=== PATIENT | male | born 1940 | race Caucasian/White ===

== ENCOUNTER 2020-02-05 18:07 | Emergency (ER) | payer OTHER ==
[~2020-02-05] VITALS: Ht 167.6 cm; Wt 96.6 kg
[~2020-02-05 18:07] MED LIST: ASPI81CH PO; ATOR20 PO; CEPH500 PO; CLIN300 PO; CLOP75 PO; ENOX100I SC; ENOX80I SC; INSDET100 SC; INSUASPI SC; LISI20 PO; LOVA20 PO; METF500C PO; PERM5TC TOP; Percocet 5-3251 EACH PO; WARF1 PO
== END 2020-02-05 20:43 | disposition home or self-care (01) ==
LOC: ER 18:07
DX: S82.832A Other fracture of upper and lower end of left fibula, initial encounter for closed fracture (principal); E11.9 Type 2 diabetes mellitus without complications; Z79.899 Other long term (current) drug therapy; Z79.4 Long term (current) use of insulin; Z79.02 Long term (current) use of antithrombotics/antiplatelets; Z79.82 Long term (current) use of aspirin; Z79.01 Long term (current) use of anticoagulants; Z95.1 Presence of aortocoronary bypass graft; X50.1XXA Overexertion from prolonged static or awkward postures, initial encounter
CPT/HCPCS: 29515; 73610; 99283-25

== ENCOUNTER 2020-05-26 01:51 | Inpatient (IN) | payer OTHER ==
[~2020-05-26] VITALS: Ht 167.6 cm; Wt 90.4 kg
[~2020-05-26 01:51] MED LIST changes: +LEVEMIR100 UNIT/1 SC; +NOVOLOG FL100 UNIT/3 SC
[2020-05-26 02:11] LABS: PCO2 Arterial 37.2 mmHg (35-45); PO2 Arterial 68.3 mmHg (80-100)
[2020-05-26 02:19] LABS: BASOPHILS ABSOLUTE AUTO 0.09 K/mm3 (0.00-0.23); BASOPHILS PERCENT AUTO 1 % (0-2); EOSINOPHILS ABSOLUTE AUTO 0.25 K/mm3 (0.00-0.68); EOSINOPHILS PERCENT AUTO 1 % (0-6); Hematocrit 38.5 % (37.0-53.0); Hemoglobin 12.5 g/dL (13.5-17.5); IMMATURE GRAN ABSOLUTE AUTO 0.09 K/mm3 (0.00-0.10); IMMATURE GRAN PERCENT AUTO 1 % (0-1); LYMPHOCYTES ABSOLUTE AUTO 4.53 K/mm3 (0.84-5.20); LYMPHOCYTES PERCENT AUTO 25 % (21-46); MONOCYTES ABSOLUTE AUTO 0.99 K/mm3 (0.16-1.47); MONOCYTES PERCENT AUTO 6 % (4-13); Mean Corpuscular HGB 29.9 pg (26.0-34.0); Mean Corpuscular HGB Conc 32.5 g/dL (31.5-36.5); Mean Corpuscular Volume 92 fL (80-100); Mean Platelet Volume 10.6 fL (9.1-12.4); NEUTROPHILS PERCENT AUTO 67 % (41-73); Platelet Count 422 K/mm3 (150-400); RDW Coefficient Variation 14.2 % (11.7-14.2); RDW Standard Deviation 47.8 fL (35.1-46.3); Red Blood Cell Count 4.18 M/mm3 (4.30-5.90); White Blood Cell Count 18.05 K/mm3 (4.00-11.30)
[2020-05-26 03:11] LABS: Influenza A, PCR Negative (NEGATIVE); Influenza B, PCR Negative (NEGATIVE); Resp Syncytial Virus, PCR Negative (NEGATIVE); SARS-Cov-2 (COVID-19) PCR, MMC Negative (NEGATIVE)
[2020-05-26 03:39] LABS: Albumin, Blood 3.3 g/dL (3.4-5.0); Albumin/Globulin Ratio 0.8 (0.8-1.8); Bilirubin, Total 0.8 mg/dL (0.1-1.0); Bun/Creatinine Ratio 13.4 (12.0-20.0); Calcium, Blood 8.5 mg/dL (8.5-10.1); Creatinine, Blood 2.02 mg/dL (0.60-1.20); Globulin, Blood 4.2 g/dL (2.2-4.0); Potassium, Blood 4.7 mmol/L (3.5-5.5); Total Protein, Blood 7.5 g/dL (6.4-8.2); Troponin I 0.283 ng/mL (0.000-0.040)
[2020-05-26 05:12] LABS: International Normalized Ratio 3.32; Prothrombin Time Results 33.2 Sec (9.7-11.5)
--- NOTE | 2020-05-26 07:23 | NUR ---
ASSUMED CARE: PT RESTING IN BED ON 2L AT THIS TIME. AT BEDSIDE DURING REPORT. AFIB AT 103 ON TELE, DENIES CHEST PAIN. RT CAME OUT OF ROOM STATING SHE PUT PT BACK ON BIPAP DUE TO FEELING SOB. NO ACUTE NEEDS OR CONCERNS AT THIS TIME.
--- NOTE | 2020-05-26 07:26 | NUR ---
PHARMACIST CALLED AND STATED PT'S INR WAS SUPRATHERAPEUTIC SO HEPARIN WILL NOT BE STARTED AT THIS TIME. PHARMACIST STATED THEY WILL CONTACT HOSPITALIST TO MAKE THEM AWARE.
[2020-05-26 09:19] LABS: BASOPHILS ABSOLUTE AUTO 0.02 K/mm3 (0.00-0.23); BASOPHILS PERCENT AUTO 0 % (0-2); EOSINOPHILS PERCENT AUTO 0 % (0-6); Hematocrit 37.2 % (37.0-53.0); Hemoglobin 12.8 g/dL (13.5-17.5); IMMATURE GRAN ABSOLUTE AUTO 0.05 K/mm3 (0.00-0.10); IMMATURE GRAN PERCENT AUTO 1 % (0-1); LYMPHOCYTES ABSOLUTE AUTO 0.67 K/mm3 (0.84-5.20); LYMPHOCYTES PERCENT AUTO 7 % (21-46); MONOCYTES ABSOLUTE AUTO 0.11 K/mm3 (0.16-1.47); MONOCYTES PERCENT AUTO 1 % (4-13); Mean Corpuscular HGB 32.3 pg (26.0-34.0); Mean Corpuscular HGB Conc 34.4 g/dL (31.5-36.5); Mean Corpuscular Volume 94 fL (80-100); Mean Platelet Volume 10.6 fL (9.1-12.4); NEUTROPHILS ABSOLUTE AUTO 9.03 K/mm3 (1.96-9.15); NEUTROPHILS PERCENT AUTO 91 % (41-73); Platelet Count 318 K/mm3 (150-400); RDW Coefficient Variation 14.3 % (11.7-14.2); RDW Standard Deviation 47.8 fL (35.1-46.3); Red Blood Cell Count 3.96 M/mm3 (4.30-5.90); White Blood Cell Count 9.88 K/mm3 (4.00-11.30)
[2020-05-26 09:52] LABS: Albumin, Blood 3.4 g/dL (3.4-5.0); Albumin/Globulin Ratio 0.7 (0.8-1.8); Bilirubin, Total 0.7 mg/dL (0.1-1.0); Bun/Creatinine Ratio 13.7 (12.0-20.0); Calcium, Blood 9.1 mg/dL (8.5-10.1); Creatinine, Blood 2.05 mg/dL (0.60-1.20); Globulin, Blood 4.8 g/dL (2.2-4.0); Potassium, Blood 4.6 mmol/L (3.5-5.5); Total Protein, Blood 8.2 g/dL (6.4-8.2)
--- NOTE | 2020-05-26 09:56 | NUR ---
DR MELARA CAME TO SEE PT AND IS AWARE OF RECENT TROPONIN. WILL BE REORDERING NEW LAB FOR THIS AFTERNOON. DR ORDERED EKG AND ECHO IS CURRENTLY AT BEDSIDE. OK WITH DELAYING EKG UNTIL ECHO IS COMPLETE. NO FURTHER NEEDS AT THIS TIME.
--- NOTE | 2020-05-26 11:18 | NUR ---
Echocardiogram using 0.50ml of Definity contrast performed.
[2020-05-26 15:21] LABS: CPK Creatine Kinase 261 U/L (39-308)
--- NOTE | 2020-05-26 19:15 | NUR ---
ASSUMED CARE RECEIVED REPORT, PT SITTING UP IN BED SPEAKING ON PHONE. O2@2LPM , NO APPARENT RESP DISTRESS. WILL CONTINUE TO MONITOR
--- NOTE | 2020-05-27 05:23 | NUR ---
PT A&Ox4 AT START OF SHIFT. APPEARED TO HAVE MOMENTS OF CONFUSION/BEWILDERMENT WHEN WOKE UP THROUGHT THE NIGHT, REORIENTS EASILY. O2 @2LPM VIA NC THROUGH SHIFT, PT REFUSED TO WEAR BIPAP MASK. DYSPNEA OBSERVED WITH EXERTION AND SPEAKING. SATS REMAIN >95%. TELE SR 70s, IRREGULAR AT TIMES. PT DENIED ANY CHEST PAIN/PRESSURE. VOIDING CLEAR YELLOW URINE. ASSISTED PT TO STAND AT SIDE OF BED, WEAK ON FEET BUT STEADY. WILL CONTINUE TO MONITOR
[2020-05-27 07:59] LABS: BASOPHILS ABSOLUTE AUTO 0.02 K/mm3 (0.00-0.23); BASOPHILS PERCENT AUTO 0 % (0-2); EOSINOPHILS ABSOLUTE AUTO 0.01 K/mm3 (0.00-0.68); EOSINOPHILS PERCENT AUTO 0 % (0-6); Hematocrit 35.7 % (37.0-53.0); Hemoglobin 12.3 g/dL (13.5-17.5); IMMATURE GRAN ABSOLUTE AUTO 0.08 K/mm3 (0.00-0.10); IMMATURE GRAN PERCENT AUTO 1 % (0-1); LYMPHOCYTES ABSOLUTE AUTO 1.58 K/mm3 (0.84-5.20); LYMPHOCYTES PERCENT AUTO 11 % (21-46); MONOCYTES ABSOLUTE AUTO 1.05 K/mm3 (0.16-1.47); MONOCYTES PERCENT AUTO 7 % (4-13); Mean Corpuscular HGB 32.5 pg (26.0-34.0); Mean Corpuscular HGB Conc 34.5 g/dL (31.5-36.5); Mean Corpuscular Volume 94 fL (80-100); Mean Platelet Volume 10.7 fL (9.1-12.4); NEUTROPHILS PERCENT AUTO 82 % (41-73); Platelet Count 333 K/mm3 (150-400); RDW Coefficient Variation 14.1 % (11.7-14.2); RDW Standard Deviation 47.6 fL (35.1-46.3); Red Blood Cell Count 3.79 M/mm3 (4.30-5.90); White Blood Cell Count 14.94 K/mm3 (4.00-11.30)
[2020-05-27 08:14] LABS: International Normalized Ratio 2.44; Prothrombin Time Results 24.8 Sec (9.7-11.5)
[2020-05-27 08:17] LABS: Bun/Creatinine Ratio 18.7 (12.0-20.0); Calcium, Blood 9.2 mg/dL (8.5-10.1); Creatinine, Blood 2.3 mg/dL (0.60-1.20); Potassium, Blood 4.3 mmol/L (3.5-5.5)
--- NOTE | 2020-05-27 18:05 | NUR ---
SHIFT SUMMARY PT IS ALERT AND ORIENTED X4. VITAL SIGNS STABLE, ON 1L O2 VIA NASAL CANNULA SATING ABOVE 94%. TELE, SINUS RHYTHM WITH HR 70-80'S. USING URINAL AND CALLING APPROPIATLY. NO ACUTE CHANGES THIS SHIFT. IN TO VISIT TODAY. PATIENT SLEPT MOST OF THE MORNING, WAKING FOR CARES. STATES HE IS FEELING "GOOD". TROPONIN TRENDING DOWN. FIRST DOSE OF COUMADIN GIVEN THIS SHIFT. WILL CONTINUE TO MONITOR.
[2020-05-28 04:16] LABS: BASOPHILS ABSOLUTE AUTO 0.04 K/mm3 (0.00-0.23); BASOPHILS PERCENT AUTO 0 % (0-2); EOSINOPHILS ABSOLUTE AUTO 0.33 K/mm3 (0.00-0.68); EOSINOPHILS PERCENT AUTO 3 % (0-6); Hematocrit 36.4 % (37.0-53.0); Hemoglobin 12.4 g/dL (13.5-17.5); IMMATURE GRAN ABSOLUTE AUTO 0.05 K/mm3 (0.00-0.10); IMMATURE GRAN PERCENT AUTO 1 % (0-1); LYMPHOCYTES ABSOLUTE AUTO 3.29 K/mm3 (0.84-5.20); LYMPHOCYTES PERCENT AUTO 30 % (21-46); MONOCYTES ABSOLUTE AUTO 0.97 K/mm3 (0.16-1.47); MONOCYTES PERCENT AUTO 9 % (4-13); Mean Corpuscular HGB 31.7 pg (26.0-34.0); Mean Corpuscular HGB Conc 34.1 g/dL (31.5-36.5); Mean Corpuscular Volume 93 fL (80-100); Mean Platelet Volume 11.1 fL (9.1-12.4); NEUTROPHILS ABSOLUTE AUTO 6.17 K/mm3 (1.96-9.15); NEUTROPHILS PERCENT AUTO 57 % (41-73); Platelet Count 348 K/mm3 (150-400); RDW Coefficient Variation 14.1 % (11.7-14.2); RDW Standard Deviation 46.5 fL (35.1-46.3); Red Blood Cell Count 3.91 M/mm3 (4.30-5.90); White Blood Cell Count 10.85 K/mm3 (4.00-11.30)
[2020-05-28 04:29] LABS: International Normalized Ratio 2.23; Prothrombin Time Results 22.8 Sec (9.7-11.5)
[2020-05-28 05:08] LABS: Bun/Creatinine Ratio 21.9 (12.0-20.0); Calcium, Blood 8.8 mg/dL (8.5-10.1); Creatinine, Blood 2.47 mg/dL (0.60-1.20); Potassium, Blood 3.6 mmol/L (3.5-5.5)
--- NOTE | 2020-05-28 05:58 | NUR ---
CRITICAL LAB AT APPROX 0500 THIS MORNING, LAB CALLED TO NOTIFY OF CRITICAL LAB: GLUCOSE, 46. CHARGE NURSE NOTIFIED. PT WAS CURRENTLY SLEEPING. AWAKENED PT AND ENCOURAGED HIM TO EAT CHEESE, CRACKERS, AND JUICE. REASSESS CBG 30 MIN LATER, GLUCOSE WAS 45. CALL PLACED TO MD MARY. MD MARY WITH ORDERS FOR 1/2 AMP D50% AND ORDERS TO REASSESS CBG 30 MIN AFTER AMP GIVEN PER EMAR. WILL REASSESS WHEN IN TIME WINDOW.
--- NOTE | 2020-05-28 06:35 | NUR ---
SHIFT SUMMARY PT A&OX4. PLEASANT PT. SP02>92% ON 1L NC. TELEMETRY READS SR, HR 70'S-80'S. PT USED URINAL AT BEDSIDE WELL HAD ONE INCONTINENT VOID WITH LINEN CHANGE. PT DID HAVE CRITICAL BLOOD GLUCOSE LAB DURING SHIFT, SEE PREVIOUS NOTE. MOST RECENT CBG IS 132. PT SLEPT T/O THE NIGHT. CALL LIGHT IN REACH. WILL GIVE REPORT TO ONCOMING SHIFT NURSE.
[2020-05-28] MEDS ORDERED: ATOR20 PO (11:25)
[2020-05-28] MEDS ORDERED: BUME1 PO (11:26)
[2020-05-28] MEDS ORDERED: METO50ER PO (11:26)
[2020-05-28] MEDS ORDERED: FURO20 PO (11:27)
[2020-05-28] MEDS ORDERED: NITR.4SL SL (11:27)
[2020-05-28] MEDS ORDERED: FURO40 PO (11:28)
--- NOTE | 2020-05-28 15:23 | NUR ---
DISCHARGE DISCHARGE INSTRUCTIONS PROVIDED TO PT. PT EDUCATED ON NEW MEDICATIONS AND MEDICATION CHANGES. PT EDUCATED ON HEART HEALTHY DIET. ALL QUESTIONS ANSWERED. PG REMOVED AND INTACT. PT TAKEN OUT BY ANITA
--- NOTE | 2020-05-28 15:29 | NUR ---
DISCHARGE/SHIFT SUMMARY NOTE PT IS ALERT AND ORIENTED X4. VITAL SIGNS STABLE, NO ACUTE CHANGES. PATIENT STATES HE IS FEELING "GREAT AND EXCITED TO GET HOME". ON ROOM AIR SATING ABOVE 94%. TELE SHOWING SINUS RHYTHM. NO COMPLAINTS OF PAIN. DISCHARGED.
== END 2020-05-28 15:10 | disposition home or self-care (01) | DRG 280 ==
LOC: ER 01:51 → PCU 03:11
PROVIDERS: Emergency Medicine; Internal Medicine; Pharmacist; ADMIT Internal Medicine
PROC: 3E0234Z Introduction of Serum, Toxoid and Vaccine into Muscle, Percutaneous Approach (ICD-10-PCS; principal; 2020-05-26)
DX: I21.4 Non-ST elevation (NSTEMI) myocardial infarction (principal); J96.01 Acute respiratory failure with hypoxia; I50.21 Acute systolic (congestive) heart failure; I16.1 Hypertensive emergency; I13.0 Hypertensive heart and chronic kidney disease with heart failure and stage 1 through stage 4 chronic kidney disease, or unspecified chronic kidney disease; Z20.822 Contact with and (suspected) exposure to COVID-19; Z23 Encounter for immunization; N18.30 Chronic kidney disease, stage 3 unspecified; E11.22 Type 2 diabetes mellitus with diabetic chronic kidney disease; E78.5 Hyperlipidemia, unspecified; I25.10 Atherosclerotic heart disease of native coronary artery without angina pectoris; D63.1 Anemia in chronic kidney disease; E66.9 Obesity, unspecified; Z68.33 Body mass index [BMI] 33.0-33.9, adult; Z95.2 Presence of prosthetic heart valve; Z95.1 Presence of aortocoronary bypass graft; Z79.82 Long term (current) use of aspirin; Z79.02 Long term (current) use of antithrombotics/antiplatelets; Z79.4 Long term (current) use of insulin; Z79.01 Long term (current) use of anticoagulants
CPT/HCPCS: 0241U; 36415; 36600; 71045; 80048; 80053; 82550; 82803; 82947; 83605; 83880; 84484; 85025; 85610; 85730; 87040; 93005; 93010; 94660; 94762; 96374; 99285-25; A9270; C1751; C8929; G0008; J0282; J1940; J2930; Q2038; Q9957

== ENCOUNTER 2020-06-27 10:26 | Inpatient (IN) | payer OTHER ==
[~2020-06-27] VITALS: Ht 167.6 cm; Wt 86.6 kg
[~2020-06-27 10:26] MED LIST changes: +BUME1 PO; +FURO20 PO; +FURO40 PO; +METO50ER PO; +NITR.4SL SL
[2020-06-27 10:50] LABS: BASOPHILS ABSOLUTE AUTO 0.05 K/mm3 (0.00-0.23); BASOPHILS PERCENT AUTO 1 % (0-2); EOSINOPHILS ABSOLUTE AUTO 0.14 K/mm3 (0.00-0.68); EOSINOPHILS PERCENT AUTO 1 % (0-6); Hematocrit 29.3 % (37.0-53.0); Hemoglobin 9.5 g/dL (13.5-17.5); IMMATURE GRAN ABSOLUTE AUTO 0.06 K/mm3 (0.00-0.10); IMMATURE GRAN PERCENT AUTO 1 % (0-1); LYMPHOCYTES ABSOLUTE AUTO 2.64 K/mm3 (0.84-5.20); LYMPHOCYTES PERCENT AUTO 25 % (21-46); MONOCYTES ABSOLUTE AUTO 0.83 K/mm3 (0.16-1.47); MONOCYTES PERCENT AUTO 8 % (4-13); Mean Corpuscular HGB 29.2 pg (26.0-34.0); Mean Corpuscular HGB Conc 32.4 g/dL (31.5-36.5); Mean Corpuscular Volume 90 fL (80-100); NEUTROPHILS ABSOLUTE AUTO 7.07 K/mm3 (1.96-9.15); NEUTROPHILS PERCENT AUTO 65 % (41-73); Platelet Count 249 K/mm3 (150-400); RDW Coefficient Variation 13.5 % (11.7-14.2); RDW Standard Deviation 44.1 fL (35.1-46.3); Red Blood Cell Count 3.25 M/mm3 (4.30-5.90); White Blood Cell Count 10.79 K/mm3 (4.00-11.30)
[2020-06-27 11:40] LABS: Albumin, Blood 3.3 g/dL (3.4-5.0); Albumin/Globulin Ratio 0.8 (0.8-1.8); Bilirubin, Total 2.2 mg/dL (0.1-1.0); Calcium, Blood 8.7 mg/dL (8.5-10.1); Creatinine, Blood 2.94 mg/dL (0.60-1.20); Globulin, Blood 3.9 g/dL (2.2-4.0); Potassium, Blood 4.6 mmol/L (3.5-5.5); Total Protein, Blood 7.2 g/dL (6.4-8.2)
[2020-06-27 11:48] LABS: Prothrombin Time Results >90.0 Sec (9.7-11.5)
[2020-06-27 11:49] LABS: International Normalized Ratio >10.00
[2020-06-27] MEDS ORDERED: Nitroglycerin1 EAC3 TOP (13:33)
--- NOTE | 2020-06-27 15:00 | NUR ---
PT ARRIVED TO PCU 1 FROM ED VIA GURNEY, WAS ABLE TO STAND AND TRANSFER TO BED WITH 1 SBA. SETTLED IN AND ORIENTED TO ROOM AND CALL SYSTEM. VS OBTAINED. ADMISSION PAPERWORK STARTED. PT DENIES PAIN OR DISCOMFORT AT THIS TIME. BED IN LOWEST POSITION AND CALL ROGEL IN REACH. WILL CONTINUE TO MONITOR.
[2020-06-27 21:06] LABS: Hematocrit 24.9 % (37.0-53.0); Hemoglobin 8.2 g/dL (13.5-17.5)
[2020-06-27 21:20] LABS: International Normalized Ratio 2.19
[2020-06-27 21:24] LABS: Prothrombin Time Results 22.4 Sec (9.7-11.5)
--- NOTE | 2020-06-28 03:53 | NUR ---
SHIFT SUMMARY PATIENT IS ALERT, ORIENTED, AND COOPERATIVE WITH CARE. INDEPENDENT IN BED AND A 1 PERSON SBA ASSIST TO BEDSIDE COMMODE. PATIENT WORE BILATERAL CALF COMPRESSION THROUGH THE NIGHT. SLEPT MOST THE SHIFT. 02 SATS >93% ON RA. NEURO REMAINS UNCHANGED AND WNL. VSS, NO ACUTE CHANGES. CALL LIGHT IN REACH.
[2020-06-28 04:48] LABS: Hematocrit 24.7 % (37.0-53.0); Hemoglobin 8.1 g/dL (13.5-17.5); Mean Corpuscular HGB 29.2 pg (26.0-34.0); Mean Corpuscular HGB Conc 32.8 g/dL (31.5-36.5); Mean Corpuscular Volume 89 fL (80-100); Mean Platelet Volume 11.5 fL (9.1-12.4); Platelet Count 200 K/mm3 (150-400); RDW Coefficient Variation 13.3 % (11.7-14.2); RDW Standard Deviation 43.6 fL (35.1-46.3); Red Blood Cell Count 2.77 M/mm3 (4.30-5.90); White Blood Cell Count 7.01 K/mm3 (4.00-11.30)
[2020-06-28 05:09] LABS: International Normalized Ratio 1.48
[2020-06-28 05:37] LABS: Bun/Creatinine Ratio 19.6 (12.0-20.0); Calcium, Blood 8.6 mg/dL (8.5-10.1); Creatinine, Blood 2.96 mg/dL (0.60-1.20); Potassium, Blood 4.2 mmol/L (3.5-5.5)
[2020-06-28 06:48] LABS: Prothrombin Time Results 15.5 Sec (9.7-11.5)
--- NOTE | 2020-06-28 07:43 | NUR ---
pt laying in bed awake a/ox3, pleasant and cooperative with care, follows commands well, denies pain, reports he slept pretty well, lungs are clear t/o, resp even and unlabored, no cough noted, hrr, tele in place running sr per monitor, see strip, no edema noted, ppp+2, cap refill< 3sec, vs stable, afebrile, iv site to loy is clear and patent, bt x4, hypoactive abd round soft nontender, voids without diff, skin frail, brusing noted t/o upper body, maew, stands and transfers pretty indep, criss, call light in reach.
[2020-06-28 10:30] LABS: International Normalized Ratio 1.35; Prothrombin Time Results 14.2 Sec (9.7-11.5)
--- NOTE | 2020-06-28 11:31 | NUR ---
Spiritual care visit conducted. Patient is lying in bed and alert. Patient tells me about his medical issues, his family and his amira. 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 We talk about new normals and about finding allison and appreciation for what he can do and what he does have. I normalize patient's experience, talk about the grief associated with limiting health conditions and provide pastoral conusel and prayer. PAtient responds well and shows signs of increased hope. I will continue to remain available to patient and family.
--- NOTE | 2020-06-28 17:53 | NUR ---
IN ROOM, PT DENIES ANY COMPLAINTS. HE IS ON A HEPERING GTT, AND WAS GIVEN COUMADIN TONIGHT, NO ACUTE CHANGES THIS SHIFT. CALL LIGHT IN REACH.
--- NOTE | 2020-06-28 21:34 | NUR ---
ASSUMED CARE AT 1900, PATIENT LAYING IN BED WITHOUT CONCERNS AT THIS TIME. SEE [facility] FOR FULL ASSESSMENT.
[2020-06-29 01:10] LABS: International Normalized Ratio 1.35; Prothrombin Time Results 14.2 Sec (9.7-11.5)
--- NOTE | 2020-06-29 07:41 | NUR ---
pt sitting up in the chair, denies any complaints states he didn't sleep well, did have a 7 beat run of vtach with no symptoms, lungs are clear on r/a, resp even and unlabored, no cough noted, hrr, tele in place running sr per monitor, see strip, no edema noted, ppp+2, cap refill <3sec, vs stable, afebrile, iv site is clear and patent, btx4, abd flat soft nontender, voids without diff, skin is bruised to arms and left jaw, maew, criss, call light in reach.
--- NOTE | 2020-06-29 17:42 | NUR ---
pt in chair for dinner, no complaints, in room, no acute changes this shift. call light in reach.
[2020-06-30 00:45] LABS: Anion Gap 6 mmol/L (6-16); Blood Urea Nitrogen 66 mg/dL (8-24); Bun/Creatinine Ratio 24.6 (12.0-20.0); CO2, Blood 26 mmol/L (21-32); Calcium, Blood 8.9 mg/dL (8.5-10.1); Chloride, Blood 104 mmol/L (98-108); Creatinine, Blood 2.68 mg/dL (0.60-1.20); Glomerular Filtration Rate 24 (60-); Glucose, Blood 145 mg/dL (70-99); Phosphorus, Blood 4.2 mg/dL (2.5-4.9); Potassium, Blood 4.3 mmol/L (3.5-5.5); Sodium, Blood 136 mmol/L (136-145)
[2020-06-30 00:57] LABS: International Normalized Ratio 1.97; Prothrombin Time Results 20.3 Sec (9.7-11.5)
--- NOTE | 2020-06-30 05:36 | NUR ---
SHIFT SUMMARY NO ACUTE CHANGES THIS SHIFT. VSS. PT A&OX4, SP02>92% ON RA. TELEMETRY READS SR W/ BBB. HR 60'S-70'S. PT USED URINAL AT BEDSIDE. PT DENIED PAIN. HEPARIN INFUSED PER EMAR T/O SHIFT. PT SLEPT T/O NIGHT. CALL LIGHT IN REACH. WILL GIVE REPORT TO ONCOMING NURSE.
--- NOTE | 2020-06-30 08:09 | NUR ---
ASSUMED CARE FROM CHADD RN PT WAS SLEEPING DURING MORNING SHIFT REPORT. HEPARIN GTT VERIFIED WITH CHADD RN. PT SOON WOKE FOR BREAKFAST AND VITALS. VS STABLE, PT ON RA AND ALERT AND ORIENTED. SEVERAL LARGE BRUISES ARE NOTED ACROSS THE BODY, FACE, ARMS AND ABD. BLOOD GLUCOSE WAS STABLE THIS MORNING NO INSULIN WAS NEEDED. HR 60-70s, NSR WITH BBB. PT'S INR IS NOW WITHIN THERAPEUTIC RANGE. 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
[2020-06-30 09:20] LABS: Platelet Count 241 K/mm3 (150-400)
--- NOTE | 2020-06-30 18:25 | NUR ---
SHIFT SUMMARY PT HAS BEEN ALERT AND ORIENTED TODAY IN THE ROOM. PT HAS BEEN ABLE OT MOVE SBA FROM BED TO CHAIR. PT HAS BEEN UP TO THE CHAIR FOR EACH MEAL TODAY. PT HAS BEEN USING THE URINAL INDEPENDENTLY THROUGHOUT THE DAY. VS STABLE, PT ON RA. HEPARIN DRIP IS STILL RUNNING AT 19ML/HR PER PHARMACY DOSING. PT SPENT THE EVENING VISITING WITH HIS AND IS NOW RESTING IN BED
--- NOTE | 2020-07-01 05:12 | NUR ---
SHIFT SUMMARY NO ACUTE CHANGES THIS SHIFT. VSS. PT A&OX4, SP02>92% ON RA. TELEMETRY READS SR W/ BBB. HR 70'S. PT USED URINAL AT BEDSIDE. PT DENIED PAIN. HEPARIN INFUSED PER EMAR T/O SHIFT. PT SLEPT T/O NIGHT. CALL LIGHT IN REACH. WILL GIVE REPORT TO ONOMING NURSE.
[2020-07-01 05:31] LABS: International Normalized Ratio 3.93; Prothrombin Time Results 38.9 Sec (9.7-11.5)
--- NOTE | 2020-07-01 09:24 | NUR ---
ASSUMED CARE FROM NOC RN. PT WAS ASLEEP DURING MORNING REPORT. PT AWOKE SOON AFTER TO TAKE MORNING MEDICATIONS AND HAVE BREAKFAST. DBP SLIGHTLY LOW THIS MORNING AFTER REPEAT CHECKS, CYBER SECURITY ARCHITECT Sadi GARCIA THOUGHT IT STILL APPROPRIATE TO ADMINISTER METOPROLOL TO HELP BRIDGE THE GAP BETWEEN SBP AND DBP THE MAP WAS 65. PT WAS ABLE TO USE THE URINAL INDEPENDENTLY IN BED THIS MORNING AND IS RESTING AT THIS TIME WATCHING TV.
--- NOTE | 2020-07-01 15:35 | NUR ---
DISCHARGE PT DISCHARGED VIA WHEELCHAIR AT APPROXIMATELY 1355. PT WAS ESCORTED OUT BY DIRECTOR OF ADULT EPILEPSY AND HIS SPOUSE. PT WAS GIVEN INSTRUCTIONS REGARDING FOLLOW UP APPOINTMENTS AND TO STOP TAKING COUMADIN UNTIL GOING TO THE COUMADIN CLINIC ON 07/03/20 FOR AN INR RECHECK FOR DOSE ADJUSTMENT. PT WAS STABLE UPON DISCHARGE
== END 2020-07-01 13:51 | disposition home or self-care (01) | DRG 813 ==
LOC: ER 10:26 → PCU 10:27 → ERHOLD 10:27 → PCU 15:17
PROVIDERS: Internal Medicine; Nurse Practitioner Acute Care; Pharmacist; Physician Assistant; ADMIT Hospitalist
DX: D68.32 Hemorrhagic disorder due to extrinsic circulating anticoagulants (principal); I13.0 Hypertensive heart and chronic kidney disease with heart failure and stage 1 through stage 4 chronic kidney disease, or unspecified chronic kidney disease; I50.22 Chronic systolic (congestive) heart failure; N17.9 Acute kidney failure, unspecified; I25.10 Atherosclerotic heart disease of native coronary artery without angina pectoris; N18.30 Chronic kidney disease, stage 3 unspecified; E11.22 Type 2 diabetes mellitus with diabetic chronic kidney disease; M19.90 Unspecified osteoarthritis, unspecified site; Z79.01 Long term (current) use of anticoagulants; Z95.2 Presence of prosthetic heart valve; Z95.5 Presence of coronary angioplasty implant and graft
CPT/HCPCS: 36415; 71045; 80048; 80053; 80069; 82947; 85014; 85018; 85025; 85027; 85049; 85610; 85730; 96374; 96376; 99285; A9270; G0378; J1644; J1815; J3430

== ENCOUNTER 2020-09-24 23:04 | Inpatient (IN) | payer OTHER ==
[~2020-09-24] VITALS: Ht 167.6 cm; Wt 102.4 kg
[~2020-09-24 23:04] MED LIST changes: +Nitroglycerin1 EAC3 TOP
[2020-09-24 23:42] LABS: BASOPHILS ABSOLUTE AUTO 0.05 K/mm3 (0.00-0.23); BASOPHILS PERCENT AUTO 1 % (0-2); EOSINOPHILS ABSOLUTE AUTO 0.34 K/mm3 (0.00-0.68); EOSINOPHILS PERCENT AUTO 4 % (0-6); Hematocrit 35.7 % (37.0-53.0); Hemoglobin 11.2 g/dL (13.5-17.5); IMMATURE GRAN ABSOLUTE AUTO 0.02 K/mm3 (0.00-0.10); IMMATURE GRAN PERCENT AUTO 0 % (0-1); LYMPHOCYTES ABSOLUTE AUTO 1.92 K/mm3 (0.84-5.20); LYMPHOCYTES PERCENT AUTO 22 % (21-46); MONOCYTES ABSOLUTE AUTO 0.85 K/mm3 (0.16-1.47); MONOCYTES PERCENT AUTO 10 % (4-13); Mean Corpuscular HGB 29.8 pg (26.0-34.0); Mean Corpuscular HGB Conc 31.4 g/dL (31.5-36.5); Mean Corpuscular Volume 95 fL (80-100); Mean Platelet Volume 11.5 fL (9.1-12.4); NEUTROPHILS ABSOLUTE AUTO 5.44 K/mm3 (1.96-9.15); NEUTROPHILS PERCENT AUTO 63 % (41-73); Platelet Count 235 K/mm3 (150-400); RDW Coefficient Variation 13.9 % (11.7-14.2); RDW Standard Deviation 48.5 fL (35.1-46.3); Red Blood Cell Count 3.76 M/mm3 (4.30-5.90); White Blood Cell Count 8.62 K/mm3 (4.00-11.30)
[2020-09-25 00:02] LABS: Troponin I 0.258 ng/mL (0.000-0.040)
[2020-09-25 00:15] LABS: Albumin, Blood 3.6 g/dL (3.4-5.0); Albumin/Globulin Ratio 0.8 (0.8-1.8); Bilirubin, Total 0.5 mg/dL (0.1-1.0); Bun/Creatinine Ratio 17.8 (12.0-20.0); Calcium, Blood 8.9 mg/dL (8.5-10.1); Creatinine, Blood 3.59 mg/dL (0.60-1.20); Globulin, Blood 4.4 g/dL (2.2-4.0)
--- NOTE | 2020-09-25 06:30 | NUR ---
PT WAS ADMITTED TO ICU RM 8 FROM ER AT 0240. [employer] IN DOWNTIME, SEE PAPER RECORD FOR ADD'L DOCUMENTATION. PT HAS CONT ALERT, PLEASANT. PT ARRIVED W CHEST PAIN, DESCRIBED BAND-LIKE. NTG WAS STARTED AT 15MCG (SBP 100), AND TITRATED TO 25MCG/MIN. PT STATED PARTIAL RELIEF, THEN PAIN IN NECK/JAW BILAT, AND ULTIMATELY WITH FULL RELIEF. CONT TO DENY SOB. VOIDED 400 PER URINAL. CONT ON 2L/NC. PT BP IS 80'S, AND NTG DECREASED. WILL MONITOR. REPORT TO DAYSHIFT.
[2020-09-25 07:29] LABS: Bun/Creatinine Ratio 18.5 (12.0-20.0); Calcium, Blood 8.7 mg/dL (8.5-10.1); Creatinine, Blood 3.68 mg/dL (0.60-1.20); Potassium, Blood 4.6 mmol/L (3.5-5.5)
--- NOTE | 2020-09-25 08:15 | NUR ---
CARE OF PT ASSUMED AT 0700. HEPARIN GTT AT 13UNITS, NTG GTT AT 10MCG. PT C/O SUBSTERNAL CHEST DISCOMFORT/PRESSURE 5/10. UNABLE TO TITRATE NTG GTT UP D/T SOME HYPOTENSION. MAP >60. DR GARCIA CALLED AND UPDATED. 500CC NS ORDERED. IF PRESSURE IMPROVED, MS TO BE GIVEN. PICC LINE ORDERED IF PRESSORS NEEDED. RANEXA ORDERED, TOPROL TO BE HELD.
--- NOTE | 2020-09-25 08:26 | NUR ---
DR GARCIA AT BEDSIDE. NS BOLUS STOPPED W 100CC LEFT D/T SLIGHT INCREASE IN WHEEZES. PICC LINE WILL BE PLACED FOR POSSIBLE NEED FOR PRESSORS.
[2020-09-25 08:27] LABS: International Normalized Ratio 1.38; Prothrombin Time Results 14.6 Sec (9.7-11.5)
[2020-09-25 08:49] LABS: BASOPHILS ABSOLUTE AUTO 0.05 K/mm3 (0.00-0.23); BASOPHILS PERCENT AUTO 1 % (0-2); EOSINOPHILS ABSOLUTE AUTO 0.07 K/mm3 (0.00-0.68); EOSINOPHILS PERCENT AUTO 1 % (0-6); Hematocrit 31.6 % (37.0-53.0); Hemoglobin 9.9 g/dL (13.5-17.5); IMMATURE GRAN ABSOLUTE AUTO 0.06 K/mm3 (0.00-0.10); IMMATURE GRAN PERCENT AUTO 1 % (0-1); LYMPHOCYTES ABSOLUTE AUTO 1.34 K/mm3 (0.84-5.20); LYMPHOCYTES PERCENT AUTO 12 % (21-46); MONOCYTES ABSOLUTE AUTO 1.05 K/mm3 (0.16-1.47); MONOCYTES PERCENT AUTO 10 % (4-13); Mean Corpuscular HGB 30.3 pg (26.0-34.0); Mean Corpuscular HGB Conc 31.3 g/dL (31.5-36.5); Mean Corpuscular Volume 97 fL (80-100); Mean Platelet Volume 11.3 fL (9.1-12.4); NEUTROPHILS ABSOLUTE AUTO 8.26 K/mm3 (1.96-9.15); NEUTROPHILS PERCENT AUTO 76 % (41-73); Platelet Count 209 K/mm3 (150-400); Red Blood Cell Count 3.27 M/mm3 (4.30-5.90); White Blood Cell Count 10.83 K/mm3 (4.00-11.30)
[2020-09-25 09:11] LABS: International Normalized Ratio 1.43; Prothrombin Time Results 15.1 Sec (9.7-11.5)
--- NOTE | 2020-09-25 09:23 | NUR ---
DR ZAPIEN IN TO SEE PT, NS DC'D. FAX MACHINE OPERATOR AT BEDSIDE NOW.
[2020-09-25 09:54] LABS: Albumin, Blood 3.2 g/dL (3.4-5.0); Albumin/Globulin Ratio 0.8 (0.8-1.8); Bilirubin, Total 0.4 mg/dL (0.1-1.0); Bun/Creatinine Ratio 17.6 (12.0-20.0); Calcium, Blood 8.5 mg/dL (8.5-10.1); Creatinine, Blood 3.7 mg/dL (0.60-1.20); Phosphorus, Blood 5.3 mg/dL (2.5-4.9); Potassium, Blood 5.4 mmol/L (3.5-5.5); Total Protein, Blood 7.2 g/dL (6.4-8.2)
[2020-09-25 10:23] LABS: Troponin I 8.3 ng/mL (0.000-0.040)
--- NOTE | 2020-09-25 11:01 | NUR ---
PICC LIONE PLACED W/O DIFFICULTY, DR BATISTA AT BEDSIDE, FULL UPDATE GIVEN. POST PICC LINE BP DROPPED SIGNIFICANTLY. CRITICAL TROP 8.[address] GARCIA. LEVOPHED STARTED AT 10MCG AND INCREASED TO 15MCG. PT PALE W C/O SOB. CHEST PAIN REMAINS 5/10. RT CALLED. DR FOSTER CALLED FOR SECOND TIME; DOPAMINE TO BE STARTED, DR GARCIA WILL BE AT BEDSIDE SHORTLY.
--- NOTE | 2020-09-25 11:07 | NUR ---
Echocardiogram using 0.60ml of Definity contrast performed.
--- NOTE | 2020-09-25 11:20 | NUR ---
PT CONTINUED TO BE VERY HYPOTENSIVE, DOPAMINE STARTED AT 10MCG, LEVOPHED INCREASED TO 20MCG. DR GARCIA AT BEDSIDE. EKG COMPLETED. PT DIAPHORETIC AND PALE, PT NAUSEATED. PT TO GO TO VIOLIN MAKER HAND.
[2020-09-25 11:31] LABS: Source, Urine Catheter
--- NOTE | 2020-09-25 11:31 | NUR ---
BIPAP PLACED /, FIO2 @100%. PT IN AFIB W RATE 120. BP IMPROVING. PT STATES BREATHING IMPROVED ON BIPAP. TEIXEIRA CATH 14F PLACED W/O DIFFICULTY.
[2020-09-25 11:44] LABS: Appearance, Urine Clear (Clear); Bilirubin, Urine Neg (Neg); Blood, Urine 1+ (Neg); Color, Urine Yellow (P-Yellow); Glucose Qualitative, Urine Neg (Neg); Ketones, Urine Neg (Neg); Leukocyte Esterase, Urine Neg (Neg); Nitrite, Urine Neg (Neg); Protein, Urine 2+ (Neg); Urobilinogen, Urine NORM (Normal)
[2020-09-25 12:10] LABS: Bacteria Rare /hpf; Red Blood Cells, Urine 0-2 /hpf (0-2); Squamous Epithelial Cells Rare /hpf (Few); White Blood Cells, Urine 0-2 /hpf (0-5)
--- NOTE | 2020-09-25 12:15 | NUR ---
PT INTUBATED FOR SEARCH ENGINE OPTIMIZATION SPECIALIST AT 1210 W 8.0, 25CM AT TEETH. 20MG ETOMIDATE GIVEN FOR INTBATION PER DR ESPINOZA. OG TUBE PLACED. AWAITING CHEST XRAY. VASOPRESSIN GTT STARTED.
--- NOTE | 2020-09-25 12:25 | NUR ---
PROPOFOL SCANNED BUT NEVER STARTED D/T HYPOTENSION. LEVOPHED INCREASED TO 30MCG, DOPAMINE INCREASED TO 15MCG. DR ESPINOZA IS PLACING ORDERS FOR FENTANYL AND ATIVAN. PT AWAKE AND ABLE TO TRIM DIE MAKER HAND TO COMMAND. DR GARCIA AT BEDSIDE AND GIVEN UPDATE.
[2020-09-25 14:16] LABS: BASOPHILS ABSOLUTE AUTO 0.05 K/mm3 (0.00-0.23); BASOPHILS PERCENT AUTO 0 % (0-2); Hematocrit 30.2 % (37.0-53.0); Hemoglobin 9.3 g/dL (13.5-17.5); LYMPHOCYTES ABSOLUTE AUTO 3.36 K/mm3 (0.84-5.20); LYMPHOCYTES PERCENT AUTO 23 % (21-46); MONOCYTES ABSOLUTE AUTO 0.95 K/mm3 (0.16-1.47); MONOCYTES PERCENT AUTO 7 % (4-13); Mean Corpuscular HGB 30.6 pg (26.0-34.0); Mean Corpuscular HGB Conc 30.8 g/dL (31.5-36.5); Mean Corpuscular Volume 99 fL (80-100); Mean Platelet Volume 11.6 fL (9.1-12.4); NRBC ABSOLUTE 0.02 K/mm3 (0.00-0.02); NRBC Auto 0.1 /100 WBC (0.0-0.2); Platelet Count 197 K/mm3 (150-400); RDW Coefficient Variation 14.1 % (11.7-14.2); RDW Standard Deviation 50.9 fL (35.1-46.3); Red Blood Cell Count 3.04 M/mm3 (4.30-5.90); White Blood Cell Count 14.64 K/mm3 (4.00-11.30)
[2020-09-25 14:22] LABS: EOSINOPHILS ABSOLUTE AUTO 0.07 K/mm3 (0.00-0.68); EOSINOPHILS PERCENT AUTO 1 % (0-6); IMMATURE GRAN ABSOLUTE AUTO 1.04 K/mm3 (0.00-0.10); IMMATURE GRAN PERCENT AUTO 7 % (0-1); NEUTROPHILS ABSOLUTE AUTO 9.17 K/mm3 (1.96-9.15); NEUTROPHILS PERCENT AUTO 63 % (41-73)
[2020-09-25 14:59] LABS: PCO2 Arterial 31.9 mmHg (35-45); pH Blood Arterial 7.02 (7.35-7.45)
[2020-09-25 15:07] LABS: BAND PERCENT MAN 6 % (0-8); BASOPHILS ABSOLUTE MAN 0.14 K/mm3 (0.00-0.23); BASOPHILS PERCENT MAN 1 % (0-2); EOSINOPHILS ABSOLUTE MAN 0.14 K/mm3 (0.00-0.68); EOSINOPHILS PERCENT MAN 1 % (0-6); LYMPHOCYTES ABSOLUTE MAN 3.07 K/mm3 (0.84-5.20); LYMPHOCYTES PERCENT MAN 21 % (21-46); METAMYELOCYTE ABSOLUTE MAN 0.43 K/mm3 (0.00-0.00); METAMYELOCYTE PERCENT MAN 3 % (0-0); MONOCYTES ABSOLUTE MAN 0.29 K/mm3 (0.16-1.47); MONOCYTES PERCENT MAN 2 % (4-13); NEUTROPHILS ABSOLUTE MAN 10.54 K/mm3 (1.96-9.15); SEG NEUTROPHILS PERCENT MAN 66 % (41-73); TOTAL CELLS COUNTED 100
[2020-09-25 16:14] LABS: PCO2 Arterial 41.2 mmHg (35-45); PO2 Arterial 84.9 mmHg (80-100); pH Blood Arterial 7.41 (7.35-7.45)
--- NOTE | 2020-09-25 16:29 | NUR ---
After receiving a vocera request for spiritual care, I visit with patient's [facility]. Once I arrive Kathy tells me that patient's closest friend and jewel sorter is at admitting. I go to admitting and usher him back to the rm Kathy is in, in the [facility]. I provide prayer, recitation of scripture and emotional support. After several visits to check on Kathy while patient is in surgery, I see that she is stabilized and in covered for spiritual care needs by her jewel sorter. Spiritual care will continue to remain available
--- NOTE | 2020-09-25 17:38 | NUR ---
Pt requested prayer before start of proceedure. Pt not doing well when I arrived this morning. Lots of activity in his room. I slid beside him and whispered prayer in his ear. Assured him of God's presence, attention, and love. Pt frightend and held hand tightly. Pt began to further decline and I had to leave room for clinical staff availability. Twister Operator services will remain available to pt and family.
[2020-09-25 17:57] LABS: PO2 Arterial 75.8 mmHg (80-100); pH Blood Arterial 7.29 (7.35-7.45)
[2020-09-25 18:46] LABS: Albumin, Blood 2.3 g/dL (3.4-5.0); Anion Gap 14 mmol/L (6-16); Blood Urea Nitrogen 63 mg/dL (8-24); Bun/Creatinine Ratio 19.1 (12.0-20.0); CO2, Blood 22 mmol/L (21-32); Calcium, Blood 8.8 mg/dL (8.5-10.1); Chloride, Blood 103 mmol/L (98-108); Creatinine, Blood 3.29 mg/dL (0.60-1.20); Glomerular Filtration Rate 19 (60-); Glucose, Blood 471 mg/dL (70-99); Phosphorus, Blood 4.3 mg/dL (2.5-4.9); Potassium, Blood 4.2 mmol/L (3.5-5.5); Sodium, Blood 139 mmol/L (136-145)
--- NOTE | 2020-09-25 19:00 | NUR ---
ASSUMED CARE ASSUMED CARE OF PATIENT. REMAINS INTUBATED- AC 18, TV 500, PEEP 15, FIO2 70%. RR 18. PROPOFOL INFUSING AT 30MCG/KG/MIN. NO SPONTANEOUS MOVEMENT NOTED. NO RESPONSE TO NOXIOUS STIMULI AT THIS TIME. PUPILS FIXED AND DILATED. SCLERAL EDEMA NOTED. IABP TO LEFT FEMORAL ARTERY- 1:1 TIMING. COOLING CATHETER LINE TO LEFT FEMORAL VEIN- TARGET TEMP 36C. TRANSVENOUS PACEMAKER TO RIGHT FEMORAL. FEMSTOP IN PLACE TO RIGHT GROIN. EXTREMITES ARE PALE AND COOL BILATERALLY. DOPPLER PULSES TO LEFT DP/PT AND RIGHT PT. UNABLE TO FIND RIGHT DP. LEVOPHED INFUSING AT 30MCG/MIN. NEOSYNEPHRINE AT 200MCG/MIN. AMIODARONE AT 1MG/MIN. DOPAMINE AT 20MCG/KG/MIN. VASOPRESSIN AT 0.04UNITS/MIN.2ND UNIT PRBC INFUSING PER ORDER. PLAN IS TO START INSULIN GTT FOR HYPERGLYCEMIA AND NIMBEX GTT FOR SHIVERING. PICC TO LEVY. OG CLAMPED AT THIS TIME. TEIXEIRA PATENT AND DRAINING YELLOW URINE. SEE SHIFT ASSESSMENT FOR FULL ASSESSMENT.
[2020-09-25 19:09] LABS: Albumin, Blood 2.3 g/dL (3.4-5.0); Albumin/Globulin Ratio 0.7 (0.8-1.8); Bilirubin, Total 0.9 mg/dL (0.1-1.0); Calcium, Blood 8.9 mg/dL (8.5-10.1); Creatinine, Blood 3.36 mg/dL (0.60-1.20); Globulin, Blood 3.3 g/dL (2.2-4.0); Potassium, Blood 4.2 mmol/L (3.5-5.5); Total Protein, Blood 5.6 g/dL (6.4-8.2)
--- NOTE | 2020-09-25 19:48 | NUR ---
PT TO ROBOTICS TESTING TECHNICIAN AROUND 1242. PT WENT INTO CARDIAC ARREST IN ROBOTICS TESTING TECHNICIAN. SEE ROBOTICS TESTING TECHNICIAN REPORT. PT REQUIRED ALL PRESSORS TO BE MAXED FOR THE ENTIRE PROCEDURE; LEVOPHED 30MCG, DOPAMINE 20MCG, VASOPRESSIN 0.4UNITS, NEOSYNEPHRINE 200MCG. AT 1450 HEPARIN GTT WAS PLACED ON STANDBY PER DR GARCIA. PROPOFOL WAS STARTED AT 1450 PT WAS MOVING AND APPEARED TO BE HAVING DECEREBRATE POSTURING. PUPILS FIXED AND DILATED; DR GARCIA NOTIFIED. BP WAS STABLE AT THIS POINT W THE HELP OF THE BALLOON PUMP AND MAX PRESSORS. PT RETURNED TO ICU W BALLON PUMP TO LEFT GROIN, COOLING CATH TO LEFT GROIN, AND TEMP VENOUS PACER TO R GROIN. R GROIN ACCESS SITE FOR MULTIPLE STENTS CLOSED W PERCLOSE AND ANGIOSEAL. VERY SLIGHT OOZE TO R GROIN; FEM STOP PLACED IN CATH W PRESSURE 120MMHG; DR GARCIA GAVE INSTRUCTIONS FOR LETTING OUT PRESSURE. AT 1830 PRESSURE DECREASED TO 30MMHG IN ORDER TO OBTAIN R DOPPLER PULSE TO P.T. DR GARCIA AT BEDSIDE AND NOTIFIED. UPON RETURNING TO ICU DR ESPINOZA GIVEN FULL UPDATE. COOLING CATHETER STARTED W TARGET TEMP SET AT 36. TEIXEIRA TEMP CATHETER PLACED AT 1730, PT HYPOTHERMIC; DR ESPINOZA AWARE, SOME SHIVERING NOTED. NIMBEX AND DEMEROL ORDERED PRN. DR ZAPIEN WAS CALLED BY TICKET COUNTER AND UPDATED WELL. LASIX GIVEN AND NEW LABS DRAWN. I UNIT OF BLOOD WAS GIVEN IN PROCEDURE PER DR GARCIA; PT TOLERATED WELL W/O ANY ADVERSE REACTIONS, SECOND UNIT OF PRBC'S STARTED AT 1900. CBC TO REPEATED AFTER 2ND UNIT INFUSED PER DR GARCIA. VENOUS TEMP PACER SET AT 5.0 MA, RATE 50, SENSE 2.0 MV, PATIENTS RATE IS NOW 80-90/SINUS. BALLOON PUMP IS AUGMENTING 170-180; THIS IS WHAT IT WAS AUGMENTING T/O CASE. NIGHT RN TO TITRATE PRESSORS DOWN TOLERATED. BALLOON PUMP 1:1 W MAX
[2020-09-25 20:06] LABS: International Normalized Ratio 1.83; Prothrombin Time Results 19.1 Sec (9.7-11.5)
[2020-09-25 20:58] LABS: BASOPHILS ABSOLUTE AUTO 0.02 K/mm3 (0.00-0.23); BASOPHILS PERCENT AUTO 0 % (0-2); EOSINOPHILS ABSOLUTE AUTO 0.01 K/mm3 (0.00-0.68); EOSINOPHILS PERCENT AUTO 0 % (0-6); Hematocrit 30.4 % (37.0-53.0); Hemoglobin 10.3 g/dL (13.5-17.5); IMMATURE GRAN ABSOLUTE AUTO 0.14 K/mm3 (0.00-0.10); IMMATURE GRAN PERCENT AUTO 1 % (0-1); LYMPHOCYTES ABSOLUTE AUTO 1.03 K/mm3 (0.84-5.20); LYMPHOCYTES PERCENT AUTO 8 % (21-46); MONOCYTES ABSOLUTE AUTO 0.73 K/mm3 (0.16-1.47); MONOCYTES PERCENT AUTO 6 % (4-13); Mean Corpuscular HGB 31.1 pg (26.0-34.0); Mean Corpuscular HGB Conc 33.9 g/dL (31.5-36.5); Mean Corpuscular Volume 92 fL (80-100); Mean Platelet Volume 11.7 fL (9.1-12.4); NEUTROPHILS ABSOLUTE AUTO 10.93 K/mm3 (1.96-9.15); NEUTROPHILS PERCENT AUTO 85 % (41-73); Platelet Count 138 K/mm3 (150-400); RDW Coefficient Variation 13.6 % (11.7-14.2); RDW Standard Deviation 46.2 fL (35.1-46.3); Red Blood Cell Count 3.31 M/mm3 (4.30-5.90); White Blood Cell Count 12.86 K/mm3 (4.00-11.30)
[2020-09-26 05:11] LABS: BASOPHILS ABSOLUTE AUTO 0.02 K/mm3 (0.00-0.23); BASOPHILS PERCENT AUTO 0 % (0-2); EOSINOPHILS ABSOLUTE AUTO 0.03 K/mm3 (0.00-0.68); EOSINOPHILS PERCENT AUTO 0 % (0-6); Hematocrit 27.7 % (37.0-53.0); Hemoglobin 9.5 g/dL (13.5-17.5); IMMATURE GRAN ABSOLUTE AUTO 0.08 K/mm3 (0.00-0.10); IMMATURE GRAN PERCENT AUTO 1 % (0-1); LYMPHOCYTES ABSOLUTE AUTO 1.23 K/mm3 (0.84-5.20); LYMPHOCYTES PERCENT AUTO 13 % (21-46); MONOCYTES ABSOLUTE AUTO 0.92 K/mm3 (0.16-1.47); MONOCYTES PERCENT AUTO 10 % (4-13); Mean Corpuscular HGB 30.6 pg (26.0-34.0); Mean Corpuscular HGB Conc 34.3 g/dL (31.5-36.5); Mean Corpuscular Volume 89 fL (80-100); Mean Platelet Volume 11.3 fL (9.1-12.4); NEUTROPHILS PERCENT AUTO 76 % (41-73); Platelet Count 125 K/mm3 (150-400); RDW Coefficient Variation 13.8 % (11.7-14.2); White Blood Cell Count 9.38 K/mm3 (4.00-11.30)
[2020-09-26 05:13] LABS: PCO2 Arterial 27.3 mmHg (35-45); PO2 Arterial 89.7 mmHg (80-100); pH Blood Arterial 7.45 (7.35-7.45)
[2020-09-26 05:26] LABS: International Normalized Ratio 1.82
[2020-09-26 05:28] LABS: Albumin, Blood 2.2 g/dL (3.4-5.0); Albumin/Globulin Ratio 0.7 (0.8-1.8); Bilirubin, Total 0.7 mg/dL (0.1-1.0); Bun/Creatinine Ratio 18.8 (12.0-20.0); Calcium, Blood 7.7 mg/dL (8.5-10.1); Creatinine, Blood 3.13 mg/dL (0.60-1.20); Potassium, Blood 3.4 mmol/L (3.5-5.5); Total Protein, Blood 5.2 g/dL (6.4-8.2)
--- NOTE | 2020-09-26 06:42 | NUR ---
SHIFT SUMMARY NO ACUTE CHANGES. REMAINS INTUBATED- VENT SETTINGS NOW AC 18, TV 500, PEEP 12, FIO2 40%. RR 18. NO SPONTANEOUS RESPIRATIONS NOTED DURING NOC. SEDATED WITH PROPOFOL AT 30MCG/KG/MIN. NIMBEX INFUSING AT 1MCG/KG/MIN. NO SPONTANEOUS MOVEMENT NOTED. INFREQUENT MILD TREMORS NOTED WHEN NIMBEX DECREASED. NO COUGH, GAG, OR SWALLOW. PUPILS REMAIN FIXED AND DILATED. RESTRAINTS OFF SINCE MIDNOC. BIS MOSTLY 30s DURING SHIFT. IABP 1:1. LEVOPHED NOW AT 26MCG/MIN. NEOSYNEPHRINE NOW AT 140MCG/MIN. DOPAMINE CONTINUES AT 20MCG/KG/MIN. VASOPRESSIN AT 0.04UNITS/MIN. AMIODARONE DECREASED TO 0.25MG/MIN PER MD ORDER AT APPROXIMATELY 2115. HEPARIN RESTARTED THIS AM AT 13UNITS/KG/HR- NEXT PTT 1300. INSULIN GTT INFUSING AT 15UNITS/HR AT THIS TIME. TRANSVENOUS PACEMAKER INTACT TO RIGHT FEMORAL. COOLING CATHETER IN PLACE FOR COOLING PROTOCOL. TEMP NOW 96.4F. TEIXEIRA PATENT- GOOD URINE OUTPUT DURING SHIFT. OG TO LIS WITH SMALL AMOUNT BROWN BILE DRAINAGE. CALLED FOR UPDATE THIS AM. WILL REPORT TO ONCOMING RN WHEN AVAILABLE.
--- NOTE | 2020-09-26 11:37 | NUR ---
ASSUMED CARE OF PT AT 0700. PT SEDATED ON PROPOFOL AT 30MCG (PT APPEARED TO HAVE DECEREBRATE POSTURING YESTERDAY). PT ON [facility] VENT AC18/TV500/VXK227%/PEEP12. PT ON COOLING PROTOCOL, VIA COOLING CATH. TEMP 96.6(AT GOAL). NIMBEX AT 1MCG/KG/MIN FOR SHIVERING. PLAN TO REWARM AT [address] ESPINOZA. PT UNRESPONSIVE TO PAIN, NO MOVEMENT, BIS 30-40, NO GAG, COUGH, SWALLOW. PUPILS REMAIN FIXED AND DILATED RIGHT7/[id number]. AT 0700 PT ON LEVOPHED AT 26MCG, VASOPRESSIN AT 0.04UNITS, DOPAMINE AT 20MCG, NEOSYNEPHRINE AT 160MCG, AMIO AT 0.25, INSULIN GTT AT 14, AND HEPARIN GTT AT 13UNITS. DR GARCIA IN TO SEE PT AT 0800. IABP WHICH IS TO LEFT FEM ART WAS PLACED IN 1:2 TO EVALUATE PT; BP HELD BUT ECTOPY INCREASED, IABP PLACED BACK TO 1:1. AUG HIGH 170-180. ASSISTED MAP 80-110. IABP AUG DID REACH OVER 200 AT AROUND 180-210. TECH SUPPORT CALLED. HIGH AUG D/T INCREASED PEEP AND BP. PEEP HAS BEEN TITRATED DOWN TWICE BY DR ESPINOZA. PEEP NOW AT 8; PT TOLERATING WELL W SATS 97%. AR 1124 AUG DROPPED BY 2 PER TECH SUPPORT UNTIL AUG COMES DOWN W DECREASED PRESSOR NEED AND DECREASED PEEP. DR GARCIA PULLED VENOUS PACER AT 0800. HEP PLACED ON SB AT THIS TIME PER DR GARCIA. RIGHT VENOUS SHEATH PULLED AT [address] GARCIA; PRESSURE HELD X10MIN. SITE W TEG; C/D/I, NO HEMATOMA. HEPARIN TO RESTART AT 1200 IF THERE ARE NO BLEEDING ISSUES. CHEST XRAY W IABP PLACEMENT REVIEWED W DR GARCIA THIS AM; GOOD PLACEMENT. +DOPPLER TO ALL LIMBS. LIMBS REMAIN COOL, PALE, W POOR CAP REFILL. LIMBS CHECKED Q1HR. INSULIN GTT HAS BEEN TITRATED DOWN TO 5UNITS W CHECKS Q1HR. DR ZAPIEN IN THIS AM, LASIX 80MG TID ADDED W K+ BOTH PT AND IV. LABS TO BE REPEATED AT 1400. U/O IS GOOD W >100CC/HR. AMIO GTT WAS DC'D AT [address] GARCIA. PT HAS HAD FREQ. PAC'S; THIS IS UNCHANGED. CRITICAL HIGH TROP CALLED INTO DR GARCIA AT 1124; CONT TO TITRATE PRESSORS DOWN TOLERATED PER DR GARCIA
--- NOTE | 2020-09-26 12:10 | NUR ---
HEPARIN GTT RESTARTED AT 13UNITS, PHARMACY NOTIFIED. R GROIN REMAINS STABLE.
--- NOTE | 2020-09-26 12:21 | NUR ---
BOTTOM EXAMINED; SKIN INTACT. RECTAL PROBE MOVED. SAT MONITOR TO FOREHEAD MOVED; SKIN INTACT. PEEP DECREASED TO 5 BY RT. PULSES TO ALL 4 EXTREMITIES VIA DOPPLER. RIGHT DP W FAINT DOPPLER PULSE, THIS IS UNCHANGED.
[2020-09-26 14:05] LABS: Base Excess Venous -2.1 mmol/L; Bicarbonate Venous 22.2 mmol/L (24.0-30.0); PCO2 Venous 41.9 mmHg (38-42); pH Blood Venous 7.36 (7.34-7.37)
--- NOTE | 2020-09-26 14:15 | NUR ---
NEOSYNEPHRINE ON STANDBY. AUG RAISING AGAIN 170-180'S; LASIX GIVEN. WILL CONT TO TITRATE PRESSORS DOWN. PIVOT TUBE FEEDING STARTED AT 10CC/HR. GAOL RATE OF 20. INSULIN CONT TO BE OFF W BS AROUND 100. U/O > 150/HR. NO CHANGE TO PULSES.
[2020-09-26 14:39] LABS: Albumin, Blood 2.1 g/dL (3.4-5.0); Anion Gap 10 mmol/L (6-16); Blood Urea Nitrogen 52 mg/dL (8-24); Bun/Creatinine Ratio 16.7 (12.0-20.0); CO2, Blood 24 mmol/L (21-32); Chloride, Blood 103 mmol/L (98-108); Creatinine, Blood 3.11 mg/dL (0.60-1.20); Glomerular Filtration Rate 21 (60-); Glucose, Blood 110 mg/dL (70-99); Phosphorus, Blood 3.7 mg/dL (2.5-4.9); Potassium, Blood 4.4 mmol/L (3.5-5.5); Sodium, Blood 137 mmol/L (136-145)
--- NOTE | 2020-09-26 14:44 | NUR ---
ELBOWS PURPLE, THEY WADE, PILLOWS PLACED UNDER ARMS. HEELS MINIMALLY FLOATED ON FOLDED SHEET.
--- NOTE | 2020-09-26 14:53 | NUR ---
TARGET TEMP INCREASED TO 97.1 FROM 96.6 TO SLOWLY REWARM PT. LEFT MESSAGE FOR DR ZAPIEN 1400 LAB RESULTS ARE AVAIABLE. 1500CC U/O SO FAR THIS SHIFT.
--- NOTE | 2020-09-26 16:00 | NUR ---
PUPIL SIZE SLOWLY DECREASING R PUPIL 4MM, L PUPIL 7MM. THEY REMAIN UNREACTIVE TO LIGHT. NIMBEX REMAINS ON UNTIL PT MORE NORMOTHERMIC. LEVOPHED DOWN TO 16MCG, DOPAMINE DOWN TO 12MCG. LONA, AMIO, AND INSULIN REMAIN OFF. CALCIUM REPLACED PER DR ESPINOZA. R DP SLIGHTLY STRONGER ON DOPPLER, NO OTHER CHANGES TO LIMB ASSESSMENT.
--- NOTE | 2020-09-26 16:26 | NUR ---
DR GARCIA AT BEDSIDE TO CHECK ON PT; FULL UPDATE GIVEN. DR ESPINOZA IN TO SEE PT MULTIPLE TIMES T/O SHIFT TO CHECK ON PT WELL.
--- NOTE | 2020-09-26 16:55 | NUR ---
TEMP NOW 97.1. TARGET TEMP INCREASED TO 97.7. PT'S AT BEDSIDE. UPDATE GIVEN. WARM BLANKETS APPLIED TO UPPER AND LOWER PORTION OF BODY LEAVING BALLOON PUMP EXPOSED.
--- NOTE | 2020-09-26 18:00 | NUR ---
PUPILS 5/5MM AND SLUGGISH; SLIGHT REACTION TO LIGHT.
--- NOTE | 2020-09-26 18:03 | NUR ---
PT HAS IMPROVED T/O SHIFT. NEOSYNEPHRINE GTT, AMIO GTT, AND INSULIN GTT REMAIN OFF. DOPAMINE GTT IS AT 10MCG, LEVOPHED GTT IS AT 16MCG. VASOPRESSIN CONT TO INFUSE AT 0.04UNITS. PEEP IS DOWN TO 5 FROM 14, FIO2 REMAINS AT 40% W SATS >97%. WEANING NIMBEX DOWN NOW THAT PT'S TEMP IS INCREASING. TEMP PER RECTAL PROBE READS 97.5, TEIXEIRA TEMP PROBE HAS DIFFERED BY ABOUT 1 DEGREE AND READS 96.6. NIMBEX AT 0,5MCG, PUPILS EQUAL AND SLUGGISH BUT REACTIVE. U/O HAS BEEN EXCELLENT, BETWEEN 100-275/HR. BALLOON PUMP AND COOLING CATH TO LEFT GROIN REMAIN STABLE, CIRC CHECKS TO ALL EXT Q1 STABLE T/O SHIFT. AUG IS AROUND 150. ASSISTED MAP IS NOW 90-110. PT HAS BEEN IN SINUS RHTHYM W PAC'S T/O SHIFT. CA++ AND K+ REPLACED. PROPOFOL REMAINS AT 30MCG. HEPARIN GTT INFUSING AT 13UNITS. R GROIN DRSG REMAINS C/D/I. R AND L GROIN SOFT W/O HEMATOMA.
[2020-09-26 18:17] LABS: Hemoglobin 9.1 g/dL (13.5-17.5); Mean Corpuscular HGB 30.5 pg (26.0-34.0); Mean Corpuscular Volume 87 fL (80-100); Mean Platelet Volume 11.4 fL (9.1-12.4); Platelet Count 102 K/mm3 (150-400); RDW Coefficient Variation 13.9 % (11.7-14.2); RDW Standard Deviation 44.5 fL (35.1-46.3); Red Blood Cell Count 2.98 M/mm3 (4.30-5.90); White Blood Cell Count 11.38 K/mm3 (4.00-11.30)
[2020-09-26 18:30] LABS: International Normalized Ratio 2.17; Prothrombin Time Results 22.4 Sec (9.7-11.5)
[2020-09-26 18:42] LABS: BAND PERCENT MAN 18 % (0-8); BASOPHILS ABSOLUTE MAN 0.11 K/mm3 (0.00-0.23); BASOPHILS PERCENT MAN 1 % (0-2); EOSINOPHILS PERCENT MAN 0 % (0-6); LYMPHOCYTES ABSOLUTE MAN 0.79 K/mm3 (0.84-5.20); LYMPHOCYTES PERCENT MAN 7 % (21-46); MONOCYTES ABSOLUTE MAN 0.34 K/mm3 (0.16-1.47); MONOCYTES PERCENT MAN 3 % (4-13); NEUTROPHILS ABSOLUTE MAN 10.12 K/mm3 (1.96-9.15); SEG NEUTROPHILS PERCENT MAN 71 % (41-73); TOTAL CELLS COUNTED 100
--- NOTE | 2020-09-26 18:44 | NUR ---
DR ZAPIEN GIVEN UPDATE INCLUDING LABS.
--- NOTE | 2020-09-26 19:00 | NUR ---
ASSUMED CARE ASSUMED CARE OF PATIENT. REMAINS INTUBATED- AC 18, TV 500, PEEP 5, FIO2 40%. RR 18. NO SPONTANEOUS RESPIRATIONS NOTED. SEDATED WITH PROPOFOL AT 30MCG/KG/MIN. NO SPONTANEOUS MOVEMENT NOTED. NO RESPONSE TO NOXIOUS STIMULI. BIS 30s. NIMBEX CONTINUES AT 0.5MCG/KG/MIN. PUPILS 5MM AND SLUGGISH. IABP TO LEFT GROIN. IABP 1:1 AT THIS TIME. COOLING CATHETER/CENTRAL LINE TO LEFT GROIN, WELL. RIGHT GROIN SITE WITH DRSG C/D/I. LEVY PICC NOTED. OG WITH PIVOT 1.5 AT 10CC/HR (GOAL RATE IS 20CC/HR). TEIXEIRA PATENT AND DRAINING CLEAR YELLOW URINE. LEVOPHED INFUSING AT 16MCG/MIN. DOPAMINE INFUSING AT 10MCG/KG/MIN. VASOPRESSIN AT 0.04UNITS/MIN. HEPARIN AT 13UNITS/KG/HR PER PHARMACY. NS TKO. SEE SHIFT ASSESSMENT FOR FULL ASSESSMENT.
[2020-09-26 19:11] LABS: Albumin, Blood 2.2 g/dL (3.4-5.0); Albumin/Globulin Ratio 0.7 (0.8-1.8); Bilirubin, Total 0.7 mg/dL (0.1-1.0); Bun/Creatinine Ratio 16.1 (12.0-20.0); Calcium, Blood 8.2 mg/dL (8.5-10.1); Creatinine, Blood 3.29 mg/dL (0.60-1.20); Globulin, Blood 3.1 g/dL (2.2-4.0); Total Protein, Blood 5.3 g/dL (6.4-8.2)
[2020-09-27 04:23] LABS: BASOPHILS ABSOLUTE AUTO 0.01 K/mm3 (0.00-0.23); BASOPHILS PERCENT AUTO 0 % (0-2); Hematocrit 23.9 % (37.0-53.0); Hemoglobin 8.5 g/dL (13.5-17.5); LYMPHOCYTES ABSOLUTE AUTO 1.19 K/mm3 (0.84-5.20); LYMPHOCYTES PERCENT AUTO 9 % (21-46); MONOCYTES PERCENT AUTO 9 % (4-13); Mean Corpuscular HGB 31.3 pg (26.0-34.0); Mean Corpuscular HGB Conc 35.6 g/dL (31.5-36.5); Mean Corpuscular Volume 88 fL (80-100); Mean Platelet Volume 12.4 fL (9.1-12.4); Platelet Count 96 K/mm3 (150-400); RDW Standard Deviation 44.2 fL (35.1-46.3); Red Blood Cell Count 2.72 M/mm3 (4.30-5.90); White Blood Cell Count 12.91 K/mm3 (4.00-11.30)
[2020-09-27 04:30] LABS: EOSINOPHILS PERCENT AUTO 0 % (0-6); IMMATURE GRAN ABSOLUTE AUTO 0.07 K/mm3 (0.00-0.10); IMMATURE GRAN PERCENT AUTO 1 % (0-1); NEUTROPHILS ABSOLUTE AUTO 10.54 K/mm3 (1.96-9.15); NEUTROPHILS PERCENT AUTO 82 % (41-73)
[2020-09-27 04:41] LABS: Magnesium, Blood 2.3 mg/dL (1.6-2.4)
[2020-09-27 04:49] LABS: Albumin, Blood 2.1 g/dL (3.4-5.0); Albumin/Globulin Ratio 0.6 (0.8-1.8); Bilirubin, Total 0.8 mg/dL (0.1-1.0); Bun/Creatinine Ratio 16.3 (12.0-20.0); Calcium, Blood 7.3 mg/dL (8.5-10.1); Creatinine, Blood 3.5 mg/dL (0.60-1.20); Globulin, Blood 3.3 g/dL (2.2-4.0); Phosphorus, Blood 5.3 mg/dL (2.5-4.9); Total Protein, Blood 5.4 g/dL (6.4-8.2)
[2020-09-27 05:10] LABS: PCO2 Arterial 23.1 mmHg (35-45); PO2 Arterial 65.2 mmHg (80-100); pH Blood Arterial 7.54 (7.35-7.45)
--- NOTE | 2020-09-27 05:30 | NUR ---
CRITICAL POTASSIUM LEVEL CRITICAL POTASSIUM LEVEL OF 6.[address] LONG. NEW ORDERS RECEIVED FOR LOKELMA PER PT AND TO RECHECK POTASSIUM AND BLOOD GLUCOSE AT 0600.
[2020-09-27 06:25] LABS: Glucose, Blood 235 mg/dL (70-99)
--- NOTE | 2020-09-27 06:45 | NUR ---
SHIFT SUMMARY NO ACUTE CHANGES DURING NOC. REMAINS INTUBATED- AC 18, TV 500, PEEP 5, FIO2 30%. RR 18. NO SPONTANEOUS RESPIRATIONS NOTED. NO RESPONSE TO NOXIOUS STIMULI OTHER THAN SLIGHT COUGH WITH SUCTIONING. IABP 1:1 WITH GOOD AUGMENTATION. LEVOPHED NOW AT 15MCG/MIN. DOPAMINE AT 9MCG/KG/MIN. VASOPRESSIN AT 0.04UNITS/MIN. HEPARIN GTT INCREASED FROM 13UNITS/KG/HR TO 17UNITS/KG/HR DURING NOC. 10UNITS REGULAR INSULIN AND 1/2 AMP D50 GIVEN THIS AM FOR HYPERKALEMIA. PIVOT 1.5 TUBE FEEDING AT GOAL RATE OF 20CC/HR. RESIDUALS 0CC. TEIXEIRA PATENT AND DRAINING YELLOW URINE. AFEBRILE. WILL REPORT TO ONCOMING RN WHEN AVAILABLE.
--- NOTE | 2020-09-27 08:27 | NUR ---
ASSUMED CARE BEDSIDE REPORT FROM MARY LIU AT 0700. PT INTUBATED AND SEDATED. VENT SETTINGS AC 18/500/5/30%. LUNGS COARSE c EXPIRATORY WHEEZE. SMALL AMOUNT OF LIGHT YELLOW SECRETIONS THROUGH ETT. SLIGHT COUGH REFLEX, SWALLOW REFLEX VISUALIZED ONCE. PROPOFOL GTT AT 30 MCG/KG/MIN AT SHIFT CHANGE. CURRENTLY ON STANDBY TO ASSESS NEURO FUNCTION. NO MOVEMENT NOTED TO EXTREMITIES. IABP IN 1:1, GOAL FOR MAP>65. LINE FLUSHED AND PLACED ON 2:1. TOLERATED WELL. NO ECTOPY NOTED. ASSIST SBP<UNASSISTED SBP, DBP NEARLY IDENTICAL. AUGMENTATION 140'S. HR 70'S. RETURNED TO 1:1. LEVO GTT AT 15 MCG/MIN, VASOPRESSIN PLACED ON STANDBY PER DR CORRIGAN. DOPAMINE GTT 9 MCG/KG/MIN. MAPS CURRENTLY MID 80'S. IABP TO LEFT GROIN, DRESSING INTACT. NO SWELLING NOTED. CVC TO LEFT GROIN, REWARMING AT 97.5, DRESSING C/D/I. PICC TO LUE, DRESSING C/D/I. ALL EXTREMITIES COOL, PULSES BY DOPPLER ONLY. TUBE FEEDS AT GOAL OF 20 ML/HR c 30 ML FLUSHES q4 HR. MINIMAL RESIDUALS. PLAN FOR SEDATION VACATION TO ASSESS NEURO, CONTINUED IABP SUPPORT, HOURLY OU, TITRATION OF PRESSORS TOLERATED. DR GARCIA ROUNDED THIS AM. WILL CONTINUE TO MONITOR 1:1.
[2020-09-27 08:50] LABS: Glucose, Blood 294 mg/dL (70-99); Potassium, Blood 5.8 mmol/L (3.5-5.5)
--- NOTE | 2020-09-27 10:00 | NUR ---
DR DAIGLE ROUNDS PT CONTINUES OFF SEDATION. OPENS EYES TO VERBAL STIMULI. DOES NOT FOLLOW COMMANDS. MOVES HEAD AND RIGHT FOOT INTERMITTANTLY. PLAN TO LEAVE OFF PROPOFOL AND MEDICATED c FENTANYL FOR SEDATION IF TOLERATED. SPUTUM CULTURE OBTAINED AND SENT. ANTIBIOTICS TO BE STARTED. EKG DONE. WILL CLOSELY MONITOR UO. LOGROLLED, NO ECCHYMOSIS OR ABNORMALITIES NOTED TO BACK. DR MCKENNA CALLED FOR UPDATE. VERIFIED TRENDS IN ASSISTED AND UNASSISTED SBP/SBP AND MAP. NO NEW ORDERS AT THIS TIME.
--- NOTE | 2020-09-27 11:24 | NUR ---
DECREASED URINARY OUTPUT NOTED. 10 ML LAST HOUR. PURPLE DISCOLORATION TO FORESKIN. NO MOTTLING NOTED ELSEWHERE. VASOPRESSIN RESTARTED. MAP CONTINUOUS TO BE MID 80'S. WILL CONSULT DR DAIGLE.
--- NOTE | 2020-09-27 12:00 | NUR ---
DR GARCIA CONTACTED CONCERN FOR MIGRATION OF IABP. DECREASED OU OVER LAST THREE HOURS. INCREASE IN DISCOLORATION TO FORESKIN. CHEST XRAY OBTAINED. VIEW BY DR GARCIA, VERIFIED PLACEMENT. PT CONTINUES TO OPEN EYES TO VERBAL STIMULI. DOES NOT FOLLOW COMMANDS. INTRAABDOMINAL PRESSURES [address] DA[address] ABD/PELVIS ORDERED. REVIEWED LABS. ORDER PLACED FOR 1 UNIT PRBCS.
[2020-09-27 12:12] LABS: Hematocrit 22.8 % (37.0-53.0); Hemoglobin 7.8 g/dL (13.5-17.5); Mean Corpuscular HGB 30.7 pg (26.0-34.0); Mean Corpuscular HGB Conc 34.2 g/dL (31.5-36.5); Mean Corpuscular Volume 90 fL (80-100); Mean Platelet Volume 12.2 fL (9.1-12.4); NRBC ABSOLUTE 0.02 K/mm3 (0.00-0.02); NRBC Auto 0.2 /100 WBC (0.0-0.2); Platelet Count 86 K/mm3 (150-400); RDW Coefficient Variation 13.9 % (11.7-14.2); RDW Standard Deviation 44.9 fL (35.1-46.3); Red Blood Cell Count 2.54 M/mm3 (4.30-5.90); White Blood Cell Count 12.88 K/mm3 (4.00-11.30)
[2020-09-27 13:03] LABS: BAND PERCENT MAN 10 % (0-8); BASOPHILS PERCENT MAN 0 % (0-2); EOSINOPHILS PERCENT MAN 0 % (0-6); LYMPHOCYTES ABSOLUTE MAN 1.41 K/mm3 (0.84-5.20); LYMPHOCYTES PERCENT MAN 11 % (21-46); MONOCYTES ABSOLUTE MAN 0.38 K/mm3 (0.16-1.47); MONOCYTES PERCENT MAN 3 % (4-13); MYELOCYTE ABSOLUTE MAN 0.12 K/mm3 (0.00-0.00); MYELOCYTE PERCENT MAN 1 % (0-0); NEUTROPHILS ABSOLUTE MAN 10.94 K/mm3 (1.96-9.15); SEG NEUTROPHILS PERCENT MAN 75 % (41-73); TOTAL CELLS COUNTED 100
--- NOTE | 2020-09-27 16:22 | NUR ---
CT ABD/PELVIS COMPLETE. HEMATOMA NOTED PER REPORT. DR DAIGLE ROUNDED. DISCUSSED URINARY OUTPUT. NO NEW ORDERS. 1 UNIT PRBCS TRANSFUSING. WILL RECHECK H&H [address] FOSTER NOTIFIED OF CT RESULT. HEPARIN PLACED ON STANDBY. BOLUS NOT GIVEN. PLAN TO TAKE TO UNHAIRING INSPECTOR TO REMOVE IABP.
--- NOTE | 2020-09-27 17:24 | NUR ---
SHIFT SUMMARY PT REMAINS INTUBATED. VENT SETTINGS AC 14/500/5/40%. SEDATION REMAINS OFF. PT NODS HEAD TO YES/NO QUESTIONS. DENIES PAIN. WIGGLES TOES ON COMMAND. LUNGS c CRACKLES DURING TRANSFUSION. TRANSFUSION RATE SLOWED. FIO2 DEMAND INCREASING. INCREASED THICK YELLOW SECRETIONS THROUGH ETT THIS SHIFT. MINIMAL URINARY OUTPUT THIS SHIFT, AFTERNOON HOURLY RANGE FROM 3-10 ML/HR. DR DAIGLE AWARE. PT AWAITING CENSUS CLERK FOR IABP REMOVAL. LAST ACT AT 1700 [id number]. HEPARIN HAS BEEN ON STANDBY SINCE RESULT FROM CT. HR 80'S. IABP REMAINS ON 1:1. MAP LOW 90'S AT THIS TIME. TITRATING LEVO AND DOPAMINE GTT. PEDAL PULSES BY DOPPLER ONLY. EXTREMITIES COOL. 2+ EDEMA. OOZING FROM LEFT GROIN SITE. PURPLE DISCOLORATION TO FORESKIN REMAINS UNCHANGED. WARMING CONTINUES, AT TARGET OF 97.5 ENTIRE SHIFT. TUBE FEEDS AT GOAL c MINIMAL RESIDUALS THIS SHIFT. ABD CONTINUES TO BE DISTENDED. BT X 4. WILL CONTINUE TO MONITOR UNTIL REPORT TO ONCOMING NURSE OR TRANSFER TO CENSUS CLERK.
--- NOTE | 2020-09-27 18:10 | NUR ---
DR GARCIA ROUNDS AT BEDSIDE. UPDATE GIVEN. PLACED ON 2:[address] GARCIA. PLAN FOR PTT AT 1900.
--- NOTE | 2020-09-27 19:45 | NUR ---
ASSUMED CARE PT LYING IN BED INTUBATED AT AC 14/500/5/45%; NOT SEDATED. PROPOFOL, LEVOPHED, AND HEPARIN AT BEDSIDE ON SB.; NS INFUSING INTO LT GROIN CL AT 10ML/HR AND DOPAMINE DOUBLE STRENGTH AT 7MCG/KG/MIN. PT ABLE TO OPEN EYES ON COMMAND AND TRACKS TO SOUND. TEMP TEIXEIRA PATENT AND DRAINING LIGHT YELLOW WITH TINT OF PINK URINE. COOLING CATH IN REWARMING PHASE WITH TEMP 97.7F. BALLOON PUMP 1:2 ASSISTED TO MAINTAIN MAP >65; MAP CURRENTLY IN 70'S. VS STABLE WITH ASISSTED BP 90'S/40'S ON BALLOON PUMP, HR IN 80'S-90'S NSR W/ PVC'S, SPO2 99%, RR 20'S. SEE SHIFT ASSESSMENT FOR FURTHER INFORMATION.
[2020-09-27 20:14] LABS: Hematocrit 22.1 % (37.0-53.0); Hemoglobin 7.8 g/dL (13.5-17.5)
--- NOTE | 2020-09-27 20:18 | NUR ---
CALLED DR. GARCIA REGARDING PTT RESULTS. STATED TO GET FEM STOP READY AND HE WOULD BE BY TO DISCONTINUE IABP.
--- NOTE | 2020-09-27 20:58 | NUR ---
IABP REMOVAL DR. GARCIA AT BEDSIDE. BALLOON PUMP TURNED OFF AT 2054; LIDOCAINE ADMINISTERED AND LINE REMOVED AT 2099. MANUAL PRESSURE BEING HELD WITH PLAN TO APPLY FEM STOP TO SITE.
--- NOTE | 2020-09-27 21:30 | NUR ---
FEM STOP APPLICATION DR. GARCIA HELD MANUAL PRESSURE FOR 20 MINUTES. FEM STOP APPLIED AND PRESSURE INCREASED TO 120 MMHG. ORDERS OBTAINED FOR PRESSURE DEFLATION AND REMOVAL OF FEM STOP, WELL REMOVAL OF COOLING CATH. SEE ORDERS. SITE STABLE WITH STRONG DOPPLER PULSES TO LLE.
--- NOTE | 2020-09-28 00:20 | NUR ---
REMOVAL OF FEM STOP REMOVED AT 0010 PER ORDERS. CLEANSED SITE WITH CHLORA PREP, APPLIED YOVANY DRESSING TO SITE, AND COVERED WITH TEGADERM. MINIMAL OOZING NOTED; HOWEVER, OVERALL SITE IS STABLE. VSS, SEE FLOWSHEET. WILL CONTINUE TO REASSESS SITE. CENTRAL LINE TO LEFT FEMORAL VEIN REMAINS IN PLACE.
--- NOTE | 2020-09-28 01:10 | NUR ---
FEM STOP REAPPLIED UPON REMOVAL OF CENTRAL LINE FROM LEFT FEMORAL VEIN, PER ORDERS, PT'S LEFT FEMORAL ARTERY STARTED TO REBLEED. GAUZE PACKED TO SITE AND PRESSURE HELD UNTIL FEM STOP WAS ABLE TO BE REAPPLIED AND CINCHED DOWN. NO PRESSURE ADDED TO FEM STOP CUFF. SITE APPEARS STABLE AT THIS TIME. NO OOZING AROUND FEM STOP, VSS REMAIN STABLE. GAUZE PAD REMAIN SATURATED UNDER FEM STOP; HOWEVER, SURROUNDING TISSUE REMAINS SOFT UPON PALPATION. BRUISING REMAINS TO SURROUNDING TISSUE.
[2020-09-28 03:41] LABS: BASOPHILS ABSOLUTE AUTO 0.01 K/mm3 (0.00-0.23); BASOPHILS PERCENT AUTO 0 % (0-2); LYMPHOCYTES ABSOLUTE AUTO 0.73 K/mm3 (0.84-5.20); LYMPHOCYTES PERCENT AUTO 9 % (21-46); MONOCYTES PERCENT AUTO 7 % (4-13); Mean Corpuscular HGB 30.7 pg (26.0-34.0); Mean Corpuscular HGB Conc 34.8 g/dL (31.5-36.5); Mean Corpuscular Volume 88 fL (80-100); Mean Platelet Volume 12.3 fL (9.1-12.4); NRBC ABSOLUTE 0.02 K/mm3 (0.00-0.02); NRBC Auto 0.2 /100 WBC (0.0-0.2); Platelet Count 55 K/mm3 (150-400); RDW Coefficient Variation 13.8 % (11.7-14.2); RDW Standard Deviation 44.2 fL (35.1-46.3); Red Blood Cell Count 2.61 M/mm3 (4.30-5.90); White Blood Cell Count 8.24 K/mm3 (4.00-11.30)
[2020-09-28 03:43] LABS: EOSINOPHILS ABSOLUTE AUTO 0.03 K/mm3 (0.00-0.68); EOSINOPHILS PERCENT AUTO 0 % (0-6); IMMATURE GRAN ABSOLUTE AUTO 0.05 K/mm3 (0.00-0.10); IMMATURE GRAN PERCENT AUTO 1 % (0-1); NEUTROPHILS ABSOLUTE AUTO 6.82 K/mm3 (1.96-9.15); NEUTROPHILS PERCENT AUTO 83 % (41-73)
[2020-09-28 03:59] LABS: BAND PERCENT MAN 12 % (0-8); BASOPHILS PERCENT MAN 0 % (0-2); EOSINOPHILS PERCENT MAN 0 % (0-6); LYMPHOCYTES ABSOLUTE MAN 0.65 K/mm3 (0.84-5.20); LYMPHOCYTES PERCENT MAN 8 % (21-46); METAMYELOCYTE ABSOLUTE MAN 0.08 K/mm3 (0.00-0.00); METAMYELOCYTE PERCENT MAN 1 % (0-0); MONOCYTES ABSOLUTE MAN 0.32 K/mm3 (0.16-1.47); MONOCYTES PERCENT MAN 4 % (4-13); NEUTROPHILS ABSOLUTE MAN 7.16 K/mm3 (1.96-9.15); SEG NEUTROPHILS PERCENT MAN 75 % (41-73); TOTAL CELLS COUNTED 100
[2020-09-28 04:00] LABS: Alanine Aminotransfer (ALT/SGP 374 U/L (12-78); Albumin, Blood 2.2 g/dL (3.4-5.0); Albumin/Globulin Ratio 0.8 (0.8-1.8); Alk Phos 29 U/L (50-136); Anion Gap 11 mmol/L (6-16); Aspartate Aminotrans (AST/SGOT 277 U/L (12-37); Bilirubin, Total 0.7 mg/dL (0.1-1.0); Blood Urea Nitrogen 75 mg/dL (8-24); Bun/Creatinine Ratio 18.5 (12.0-20.0); CO2, Blood 22 mmol/L (21-32); Calcium, Blood 6.9 mg/dL (8.5-10.1); Chloride, Blood 96 mmol/L (98-108); Creatinine, Blood 4.06 mg/dL (0.60-1.20); Globulin, Blood 2.8 g/dL (2.2-4.0); Glomerular Filtration Rate 15 (60-); Glucose, Blood 224 mg/dL (70-99); LDL Direct Measurement 20 mg/dL (0-130); Magnesium, Blood 2.4 mg/dL (1.6-2.4); Phosphorus, Blood 7.5 mg/dL (2.5-4.9); Potassium, Blood 4.8 mmol/L (3.5-5.5); Sodium, Blood 129 mmol/L (136-145); Vancomycin, Random 16.5 ug/mL
--- NOTE | 2020-09-28 05:15 | NUR ---
END OF SHIFT SUMMARY PT REMAINED INTUBATED THROUGHOUT SHIFT. VENT SETTINGS AT AC 14/500/5/35% W/ SPO2 >90% AND RR IN HIGH TEENS TO 20'S; COARSE RHONCHI IN THE BUL AND DIM IN BASES. PT REQUIRED FREQUENT ORAL AND ET SUCTIONING. PT REMAINED ORIENTED TO FOLLOWING DIRECTIONS WITH NO SEDATION THROUGHOUT SHIFT; ABLE TO NOD HEAD "YES/NO" TO SIMPLE QUESTIONS. BALLOON PUMP WAS REMOVED BY DR. DAVE AT BEDSIDE. SEE NURSE NOTE ON REMOVAL. YOVANY DRESSING AND TEGADERM APPLIED TO SITE AFTER FEM STOP REMOVED W/ NO BLEEDING OR OOZING UNDERNEATH THE DRESSING. LT FEMORAL CL REMOVED AND COVERED WITH YOVANY AND TEGADERM DRESSING; C/D/I. PICC LINE IN LEVY INFUSING NS TKO AND DOPAMINE @ 5MCG/KG/MIN AND 18G IN OUTER AC SL. PT RECIEVED 1 UNIT PRBC THIS SHIFT INCREASING HGB FROM 7.8 TO 8.0; TOLERATED WELL WITH NO REACTIONS. NO BM THIS SHIFT, BUT ABD BECAME MORE DISTENDED AND FIRM BY END OF SHIFT; ABD PRESSURE OF 18. TF REMAINED AT GOAL RATE OF 30ML/HR WITH MINIMAL RESIDUALS. URINE REMAINED YELLOW WITH RED STREAKS; TOTAL OF 150ML URINE OUT. RECTAL PROBE REMOVED AND TEMP MAINTAINED 97-98F. DR. LONG AT BEDSIDE THIS AM WITH NEW ORDERS TO START MIDODRINE 5MG TID WELL AN ECHO TO BE PERFORMED TODAY. CALLED AND UPDATED ON PT STATUS. WILL CONTINUE TO MONITOR UNTIL REPORT GIVEN TO ONCOMING RN.
--- NOTE | 2020-09-28 06:29 | NUR ---
VENT SETTING CHANGE PT BEGAN HAVING HIGH PEAK PRESSURES AND LOW SPO2 OF 87-88% WITH COARSE/TACTILE LUNG SOUNDS. ATTEMPTED SUCTIONING, REPOSITIONING, AND ROTATING SPO2 PROBE WITH NO SUCCESS. CALL MADE TO RT AND VENT SETTINGS CHANGED TO 14/500/8/65%. CALL MADE TO DR. DAIGLE FOR PT STATUS UPDATE. ORDERS GIVEN FOR PT/INR, PTT LABS IN ANTICIPATION FOR POSSIBLE DIALYSIS.
--- NOTE | 2020-09-28 07:03 | NUR ---
RESPIRATORY STATUS CHANGE PT CONTINUED TO DROP OXYGEN SATURATIONS LOW 79% WITH PEEP OF 8 AND FIO2 100%. ATTEMPTED SUCTIONING AGAIN, WHICH WAS UNEFFECTIVE. CALLED RT TO BEDSIDE. OBTAINED ABDOMINAL PRESSURE OF 20. CALL MADE TO DR. DAIGLE WITH NEW ORDERS FOR STAT CXR, ABG, METOLAZONE 10MG, AND TO ADMINISTER MORNING DOSE OF 4MG BUMEX NOW. REPORT HANDED OFF TO NOE HORN.
[2020-09-28 07:05] LABS: International Normalized Ratio 3.15; Prothrombin Time Results 31.9 Sec (9.7-11.5)
--- NOTE | 2020-09-28 07:06 | NUR ---
PERMIT AGENT DOCUMENTATION REVIEW I HAVE READ AND AGREE WITH ALL NOTES ENTERED THIS SHIFT BY .CATHERINE
[2020-09-28 08:02] LABS: PCO2 Venous 37.3 mmHg (38-42); pH Blood Venous 7.39 (7.34-7.37)
[2020-09-28 08:03] LABS: Base Excess Venous -2.6 mmol/L; Bicarbonate Venous 21.9 mmol/L (24.0-30.0); PO2 Venous 33.5 mmHg (38-42)
--- NOTE | 2020-09-28 08:34 | NUR ---
ASSUMED CARE REPORT FROM JASPER/MARY RN AT 0700. PT INTUBATED. VENT SETTINGS AC 14/500/8/80%. LUNGS CLEAR. SMALL AMOUNT OF THICK GRIJALVA SECRETIONS THROUGH ETT. PT OPENS EYES TO VERBAL STIMULI. FOLLOW SIMPLE COMMANDS. NODS HEAD YES TO PAIN IN ABD. MEDICATED ORDERED. ABD ROUND, DISTENDED, FIRM. HYPOACTIVE BT. TUBE FEEDS AT GOAL, 30 ML/HR c 30 ML FLUSH q4 HR. MINIMAL RESIDUALS. HR 80'S, BP STABLE. DOPAMINE GTT AT 5 MCG/KG/MIN. DRESSING TO LEFT GROIN C/D/I. ECCHYMOSIS NOTED TO PENIS, UPPER THIGH AND GROIN. SOFT. ALL PULSE BY DOPPLER. 2+ EDEMA TO ALL EXTREMITIES. TEIXEIRA PATENT, DRAINING TO GRAVITY. SCANT URINE OUT. WILL CONTINUE TO MONITOR.
--- NOTE | 2020-09-28 10:25 | NUR ---
DR DAIGLE ROUNDS PT CHANGED TO SPONT /, 45% AT 0958. TOLERATING WELL. TIDAL VOLUMES 300'S. RR HIGH TEENS. PLAN FOR REPEAT H&H AT 1200. DR LONG CALLED, INCREASED BUMEX AND BUMEX GTT ADDED. WILL MONITOR AND CONSIDER DIALYSIS TOMORROW. WILL DISCUSS ASA/PLAVIX c DR GARCIA DURING ROUNDS.
[2020-09-28 12:31] LABS: Hematocrit 20.8 % (37.0-53.0); Hemoglobin 7.1 g/dL (13.5-17.5); Mean Corpuscular HGB 30.5 pg (26.0-34.0); Mean Corpuscular HGB Conc 34.1 g/dL (31.5-36.5); Mean Corpuscular Volume 89 fL (80-100); NRBC ABSOLUTE 0.03 K/mm3 (0.00-0.02); NRBC Auto 0.4 /100 WBC (0.0-0.2); RDW Coefficient Variation 14.4 % (11.7-14.2); RDW Standard Deviation 46.3 fL (35.1-46.3); Red Blood Cell Count 2.33 M/mm3 (4.30-5.90); White Blood Cell Count 7.72 K/mm3 (4.00-11.30)
[2020-09-28 12:43] LABS: BAND PERCENT MAN 12 % (0-8); BASOPHILS PERCENT MAN 0 % (0-2); EOSINOPHILS PERCENT MAN 4 % (0-6); LYMPHOCYTES % ATYPICAL MANUAL 1 % (0-0); LYMPHOCYTES ABSOLUTE MAN 0.46 K/mm3 (0.84-5.20); LYMPHOCYTES PERCENT MAN 5 % (21-46); METAMYELOCYTE ABSOLUTE MAN 0.07 K/mm3 (0.00-0.00); METAMYELOCYTE PERCENT MAN 1 % (0-0); MONOCYTES PERCENT MAN 4 % (4-13); NEUTROPHILS ABSOLUTE MAN 6.56 K/mm3 (1.96-9.15); SEG NEUTROPHILS PERCENT MAN 73 % (41-73); TOTAL CELLS COUNTED 100
[2020-09-28 12:46] LABS: Platelet Count 53 K/mm3 (150-400)
--- NOTE | 2020-09-28 17:59 | NUR ---
SHIFT SUMMARY PT REMAINS INTUBATED, VENT SETTINGS SPONT 10/8 40%. PROPOFOL RESTARTED FOR SEDATION AT 10 MCG/KG/MIN. TOLERATING VENT WELL, 300 ML TIDAL VOLUMES. LUNGS c CRACKLES THROUGHOUT. MODERATE THIN SECRETIONS THROUGH ETT. COUGH/GAG/SWALLOW REFLEX. OPENS EYES TO VERBAL STIMULI. ABD DISTENDED. IAP 26. DR DAIGLE AWARE. DISCUSSED CT. NOT ORDERED AT THIS TIME. ECCHYMOSIS TO LEFT GROIN, UPPER THIGH. INCREASED IN SIZE THIS SHIFT. SKIN PALE. SLIGHT MOTTLING TO KNEES. DOPAMINE GTT INCREASED THIS SHIFT TO 10 MCG/KG/MIN FOR MAP>65. TRANSFUSED 1 UNIT PRBCS, 1 UNIT PLATLETS. PENDING H&H AT 1900. TEIXEIRA PATENT, DRAINING TO GRAVITY, 200ML OUT THIS SHIFT. INCREASED BUMEX IVP AND GTT ORDERED THIS SHIFT. PULSES BY DOPPLER. CONTINUES TO HAVE 2+ EDEMA TO EXTREMITIES. WILL CONTINUE TO MONITOR UNTIL REPORT TO ONCOMING NURSE. VIT K ADMINISTERED THIS SHIFT.
[2020-09-28 19:06] LABS: Hematocrit 24.3 % (37.0-53.0); Hemoglobin 8.5 g/dL (13.5-17.5)
--- NOTE | 2020-09-28 19:11 | NUR ---
ASSUMED CARE PT LYING IN BED INTUBATED ON PS 10/8 40% FIO2 AND SEDATED ON PROPOFOL 10MCG/KG/MIN. NS INFUSING @ TKO, DOPAMINE INFUSING @ 10MCG/KG/MIN AND BUMEX @ 1MG/HR INTO PICC LINE. DRESSING TO LT GROIN IN PLACE WITH NO OOZING, BUT IS DAMP FROM SWEAT. PICC LINE HAS MODERATE AMOUNT OF OLD BLOOD UNDER DRESSING. 18G IN RT AC SL. ABDOMEN APPEARS SEVERELY DISTENDED AND FIRM TO PALPATION AND SCATTERED BRUISING IS NOTICED THROUGHOUT WITH HEMATOMA ON PAVITHRA AND LT GROIN. PENIS IS SEVERELY EDEMATOUS WITH ECCHYMOSIS PRESENT. TEMP TEIXEIRA PATENT AND DRAINING DARK YELLOW URINE. VS STABLE WITH SBP IN 120'S, SPO2 >90%, HR 80'S, AND RR IN HIGH TEENS TO 20'S. WILL CONTINUE TO MONITOR THROUGHOUT SHIFT.
[2020-09-29 04:07] LABS: BASOPHILS ABSOLUTE AUTO 0.02 K/mm3 (0.00-0.23); BASOPHILS PERCENT AUTO 0 % (0-2); Hematocrit 24.1 % (37.0-53.0); Hemoglobin 8.5 g/dL (13.5-17.5); LYMPHOCYTES ABSOLUTE AUTO 0.67 K/mm3 (0.84-5.20); LYMPHOCYTES PERCENT AUTO 7 % (21-46); MONOCYTES ABSOLUTE AUTO 0.79 K/mm3 (0.16-1.47); MONOCYTES PERCENT AUTO 8 % (4-13); Mean Corpuscular HGB 30.8 pg (26.0-34.0); Mean Corpuscular HGB Conc 35.3 g/dL (31.5-36.5); Mean Corpuscular Volume 87 fL (80-100); Mean Platelet Volume 11.1 fL (9.1-12.4); NRBC ABSOLUTE 0.05 K/mm3 (0.00-0.02); NRBC Auto 0.5 /100 WBC (0.0-0.2); Platelet Count 98 K/mm3 (150-400); RDW Coefficient Variation 14.6 % (11.7-14.2); RDW Standard Deviation 46.6 fL (35.1-46.3); Red Blood Cell Count 2.76 M/mm3 (4.30-5.90); White Blood Cell Count 10.03 K/mm3 (4.00-11.30)
[2020-09-29 04:09] LABS: EOSINOPHILS ABSOLUTE AUTO 0.15 K/mm3 (0.00-0.68); EOSINOPHILS PERCENT AUTO 2 % (0-6); IMMATURE GRAN ABSOLUTE AUTO 0.09 K/mm3 (0.00-0.10); IMMATURE GRAN PERCENT AUTO 1 % (0-1); NEUTROPHILS ABSOLUTE AUTO 8.31 K/mm3 (1.96-9.15); NEUTROPHILS PERCENT AUTO 83 % (41-73)
[2020-09-29 04:20] LABS: International Normalized Ratio 1.44; Prothrombin Time Results 15.2 Sec (9.7-11.5)
[2020-09-29 04:23] LABS: Albumin, Blood 2.8 g/dL (3.4-5.0); Anion Gap 12 mmol/L (6-16); Blood Urea Nitrogen 86 mg/dL (8-24); Bun/Creatinine Ratio 18.3 (12.0-20.0); CO2, Blood 23 mmol/L (21-32); Calcium, Blood 7.4 mg/dL (8.5-10.1); Chloride, Blood 95 mmol/L (98-108); Glomerular Filtration Rate 13 (60-); Glucose, Blood 182 mg/dL (70-99); Magnesium, Blood 2.6 mg/dL (1.6-2.4); Phosphorus, Blood 7.9 mg/dL (2.5-4.9); Potassium, Blood 4.6 mmol/L (3.5-5.5); Sodium, Blood 130 mmol/L (136-145); Vancomycin, Random 26.4 ug/mL
--- NOTE | 2020-09-29 06:15 | NUR ---
END OF SHIFT SUMMARY PT REMAINED INTUBATED AND SEDATED THROUGHOUT SHIFT. SPO2 REMAINED AT 88-90%; VENT SETTINGS INCREASED TO SPONTANEOUS PS 10/8 55% WHICH IMPROVED SPO2 TO 92%. PICC LINE, RT GROIN, AND LT GROIN SITES CLEANSED AND DRESSINGS CHANGED. URINE OUTPUT INCREASED TO 900ML AT END OF SHIFT. LUNG SOUNDS REMAINED COARSE WITH RHONCHI. ABD STILL SEVERELY DISTENDED AND FIRM TO PALPATION WITH ABSENT BOWEL SOUNDS AND NO BM. TF REMAINED AT GOAL RATE OF 35ML/HR. NS TKO, DOPAMINE INCREASED TO 15MCG/KG/MIN, BUMEX @ 1MG/HR, AND PROPOFOL @ 10MCG/KG/MIN INFUSING INTO PICC LINE. NO OTHER MAJOR CHANGES THROUGHOUT SHIFT. WILL CONTINUE TO MONITOR UNTIL HAND OFF REPORT GIVEN TO ONCOMING RN.
--- NOTE | 2020-09-29 07:37 | NUR ---
DEHYDROGENATION SUPERVISOR DOCUMENTATION REVIEW I HAVE READ AND AGREE WITH ALL NOTES ENTERED THIS SHIFT BY .CATHERINE
--- NOTE | 2020-09-29 10:30 | NUR ---
CARE ASSUMED ASSESSMENTS COMPLETED, PT INTUBATED AND LIGHTLY SEDATED WITH PROPOFOL 10MCG, OPENS EYES TO TOUCH, FOLLOWS SOME SIMPLE DIRECTIONS BUT DOES NOT ANSWER YES/NO OR TRACK. NO MOVEMENT IN UE'S, MOVES TOES TO COMMAND. VENT SPONT WITH PS 10/8, FIO2 55%, RR 23, SPO2 >95%, Vt 300'S. LS COARSE ON R, DIM IN BASES, MOD GRIJALVA SPUTUM FROM ETT. HR SINUS 80-90'S, DOPAMINE AT 15MCG, BP STABLE. ABD DISTENDED, FIRM, BT PRESENT. GASTRIC RESIDUAL AT 0800 0ML, PIVOT 1.5 RESUMED AT 35ML/HR. EDEMA PRESENT IN SCLERA, EXTREMS X4, AND PENIS, DARK BRUISING TO L FLANK, BILAT GROIN AND PENIS, AND SCATTERED ON ABD AND LE'S. HEMATOMA TO RUE SOFT, REMAINS DARK IN COLOR. BILAT GROIN ACCESS SITES WNL, SOFT, NO HEMATOMAS NOTED, DRESSINGS CDI. DR. DAIGLE IN TO ASSESS, DIALYSIS CATH PLACED IN R IJ AT 1000, XRAY TO CONFIRM PLACEMENT. SHOE REPAIR SUPERVISOR'S AT BEDSIDE TO INITIATE DIALYSIS. WILL ATTEMPT TO TITRATE DOPAMINE DOWN AFTER DIALYSIS.
--- NOTE | 2020-09-29 15:14 | NUR ---
UPDATE PT TOLERATED DIALYSIS WELL, 2L OFF. VENT SETTINGS SAME THIS AM, RR 16, Vt 500'S, SPO2 99%, FIO2 DECREASED TO 45%. LS CLEAR THIS AFTERNOON, RARE NEED FOR SUCTIONING. BUMEX OFF SINCE 729 THIS AM, GOOD URINE OUTPUT THIS SHIFT. NO BM'S, NO STOOL. ABD REMAINS DISTENDED AND FIRM WITH BT PRESENT, DR. DAIGLE NOTIFIED OF 210 RESIDUAL AT NOON, TF INFUSING AT TRICKLE RATE OF 10ML/HR PER DR. DAIGLE. DOPAMINE AT 10MCG, BP STABLE, HR 80'S.
--- NOTE | 2020-09-29 17:13 | NUR ---
SEDATION VACATION PROPOFOL OFF, PT OPENS EYES TO VOICE, FOLLOWS SIMPLE COMMANDS, ANSWERS YES/NO QUESTIONS, DENIES PAIN. SPO2 DESAT TO 88%, PROPOFOL RESUMED, SPO2 BACK TO 98% WITHOUT VENT CHANGES. PT NOW RESTING WITH EYES CLOSED, AT BEDSIDE. ABD ASSESSMENT UNCHANGED, RESIDUAL 160ML THIS EVNING, PIVOT REMAINS AT TRICKLE RATE 10ML/HR.
--- NOTE | 2020-09-29 18:18 | NUR ---
END OF SHIFT DOPAMINE TITRATED OFF, MAP 60'S, HR 80'S. VENT SONT PS 10/8, FIO2 45%, SPO2 MID 90'S, PROPOFOL 10MCG. LS COARSE, AMOUNT OF SPUTUM INCREASED, MODERATE/LARGE. ABD REMAINS DISTENDED WITH BT PRESENT, DOES NOT APPEAR TO BE NOTICEABLY LARGER THAN THIS MORNING, IS FIRM BUT NOT RIGID. BRUISING TO L FLANK HAS INCREASED IN SIZE. GROIN SITES REMAIN STABLE, LE EDEMA HAS DECREASED. PT HAD 1700ML URINE OUTPUT TODAY.
--- NOTE | 2020-09-29 19:27 | NUR ---
ASSUMED PT CARE FROM NOE NAILS AT 1915 PT REMAINS INTUBATED AND ON LIGHT SEDATION. VENT SETTINGS: PS 10/8; FIO2 45%; PT'S RESP RATE 20'S. PROPOFOL AT 10MCG/KG/MIN INFUSING VIA PICC LINE TO LEFT UPPER ARM. DIALYSIS CATHETER TO RIGHT IJ; PT DID RECEIVE DIALYSIS TODAY PER REPORT WITH REMOVAL OF 2L. ABDOMEN REMAINS DISTENDED AND FIRM; PIVOT 1.5 AT A TRICKLE FEED RATE OF 10MLS/HR D/T HIGH RESIDUALS. PT STILL HAS NOT HAD A BOWEL MOVEMENT SINCE ADMIT; WILL INITIATE BOWEL PROTOCOL PER ORDERS. EDEMA APPEARS TO BE BETTER TODAY; HOWEVER, HE STILL HAS SIGNIFICANT SWELLING TO PENIS IN WHICH FORESKIN IS UNABLE TO BE PULLED BACK TO PERFORM CATHETER CARES. DIFFUSE BRUISING/ECCHYMOSIS CONTINUES TO LEFT GROIN AND LEFT FLANK. DRESSINGS ARE CDI TO BOTH GROIN SITES. KNEES ARE STILL SLIGHTLY MOTTLED WITH COLD TO THE TOUCH EXTREMITIES X4. PULSES REMAIN UNPALPABLE; THEREFORE, DOPPLER REQUIRED X4 EXTREMITIES. TEIXEIRA CATHETER REMAINS PATENT AND DRAINING ADEQUATE AMOUNTS OF URINE TO GRAVITY; PER REPORT PT HAD 1700CC OF URINE OUTPUT THIS SHIFT AND BUMEX HAS BEEN OFF SINCE THIS MORNING. NO FAMILY AT BEDSIDE AT THIS TIME. VSS AT THIS TIME; SEE SHIFT ASSESSMENT FOR FURTHER DETAILS.
[2020-09-30 03:27] LABS: Hematocrit 23.7 % (37.0-53.0); Hemoglobin 8.3 g/dL (13.5-17.5)
[2020-09-30 03:45] LABS: Albumin, Blood 2.4 g/dL (3.4-5.0); Anion Gap 11 mmol/L (6-16); Blood Urea Nitrogen 75 mg/dL (8-24); Bun/Creatinine Ratio 17.5 (12.0-20.0); CO2, Blood 26 mmol/L (21-32); Calcium, Blood 7.8 mg/dL (8.5-10.1); Chloride, Blood 93 mmol/L (98-108); Creatinine, Blood 4.29 mg/dL (0.60-1.20); Glomerular Filtration Rate 14 (60-); Glucose, Blood 193 mg/dL (70-99); Magnesium, Blood 2.5 mg/dL (1.6-2.4); Phosphorus, Blood 7.2 mg/dL (2.5-4.9); Potassium, Blood 3.8 mmol/L (3.5-5.5); Sodium, Blood 130 mmol/L (136-145); Vancomycin, Random 21.4 ug/mL
--- NOTE | 2020-09-30 05:41 | NUR ---
END OF SHIFT SUMMARY NO SIGNIFICANT CHANGES THIS SHIFT. PT REMAINS ON SPONTANEOUS WITH PRESSURE SUPPORT /8; FIO2 35%. SEDATION VACATION PERFORMED AT 0400 IN WHICH PT HAS REMAINED OFF PROPOFOL. MEDICATED WITH FENTANYL X1 FOR PAIN. PT ALERT, ABLE TO FOLLOW DIRECTIONS, NODS HEAD YES/NO APPROPRIATELY TO QUESTIONS. PT IS CURRENTLY SL AT THIS TIME. CHANGED DRESSING TO TRIALYSIS CATH TO RIGHT IJ D/T MODERATE AMOUNTS OF BLOODY DRAINAGE; HOWEVER, SITE CONTINUES TO OOZE. TF CONTINUES TO TRICKLE AT 10MLS/HR WITH MAX RESIDUAL OF 15CC THIS SHIFT. ABDOMEN REMAINS DISTENDED AND FIRM; ADMINISTERED SUPPOSITORY D/T NO BM SINCE ADMIT. LUNGS COARSE TO CLEAR T/O SHIFT WITH MODERATE AMOUNTS OF THICK GRIJALVA SECRETIONS SUCTIONED. HR 80'S; NSR WITH OCCASIONAL PVC'S. BP'S STABLE, SEE FLOWSHEET. WILL CONTINUE TO MONITOR UNTIL REPORT IS HANDED OFF TO ONCOMING RN.
--- NOTE | 2020-09-30 09:23 | NUR ---
CARE ASSUMED ASSESSMENTS COMPLETED, PT INTUBATED, OFF OF SEDATION, OPENS EYES TO VOICE AND FOLLOWS COMMANDS, EMERSON, ANSWERS YES/NO, TRACKS. VENT SPONT MODE, PS 10/8, FIO2 35%, SPO2 >95%. LS COARSE ON R, LARGE AMOUNTS THICK GRIJALVA SPUTUM FROM ETT. HR SINUS 80'S, WIDE QRS, MONITOR OCCASIONALLY ALARMING R ON T. DR. ACEVEDO AT BEDSIDE, AWARE OF R ON T ALARMS, NO NEW ORDERS AT THIS TIME. DOPAMINE REMAINS OFF, BP STABLE. ABD DISTENDED, FIRM, GUARDED. BT DECREASED, TRICKLE FEEDS INFUSING, RESIDUAL 60ML. SMALL BURN TO R POSTERIOR SHOULDER SUPERFICIAL, INTACT. BRUISING TO BILATERAL FLANKS, BILATERAL GROIN, AND PENIS, EDEMA TO ALL EXTREMS AND PENIS BUT SEEMS TO BE IMPROVING IN LE'S. URINE CLEAR YELLOW, GOOD OUPUT. PLANNING FOR DIALYSIS TODAY. RIGHT IJ DIALYSIS CATH OOZING, WILL CHANGE DRESSING. PICC TO LUE, [place] DOES NOT DRAW. DR. MCFADDEN AT BEDSIDE, INFORMED OF R ON T AND INCREASED SECRETIONS.
[2020-09-30 13:08] LABS: Hematocrit 24.3 % (37.0-53.0); Hemoglobin 8.5 g/dL (13.5-17.5)
--- NOTE | 2020-09-30 13:49 | NUR ---
HEMODIALYSIS TREATMENT CANCELLATION PER DR MCFADDEN DUE TO PT DECOMPENSATION.
--- NOTE | 2020-09-30 16:32 | NUR ---
Echocardiogram completed.
--- NOTE | 2020-09-30 18:17 | NUR ---
UPDATES 1230: AT BEDSIDE FOR NOON CARES AND REASSESSMENTS, LS REMAIN COARSE, PT TOLERATING PS WELL WITH NO CHANGES TO VENT SETTINGS. ETT SUCTIONED, ORAL CARE COMPLETED, PT REPOSITIONED ONTO LEFT SIDE. DRESSING TO R IJ TRIALYSIS CATH CHANGED FOR CONTINUOUS OOZING OF BLOOD. DURING DRESSING CHANGED, PT'S BP DROPPED TO 70'S/40'S. LUQ AND LLQ ABD RIGID AT THIS TIME, R ABD REMAINS FIRM BUT UNCHANGED FROM EARLIER ASSESSMENTS. PT DENIES ABD PAIN. DOPAMINE AND LEVO RESTARTED, NS BOLUS INITIATED. DR. MCFADDEN NOTIFIED, AT BEDSIDE, NEW ORDERS RECEIVED. LEVO 20MCG, DOPAMINE 20MCG, SEE FLOW SHEET TITRATIONS. 1400: BP STABLIZED WITH LEVO AND DOPAMINE, HR 110'S. PT TO RADIOLOGY DEPARTMENT FOR CTA ABDOMEN, TOLERATED WITHOUT INCIDENT. 1430: CT RESULTS REVIEWED BY DR. 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 ATTEMPTING TO CONTACT DR. GRECO. 2U PRBC'S INFUSING. AT BEDSIDE, UPDATED BY DR. MCFADDEN. 1510: DR. GRECO AT BEDSIDE, STATES CT APPEARS UNCHANGED FROM PREVIOUS IMAGING, DOES NOT FEEL IR IS NECESSARY AT THIS TIME. 1610: ECHO COMPLETED, NO SIGNIFICANT CHANGES PER UNOFFICIAL REPORT. 1630: LE US COMPLETED, NEGATIVE. 1830: DOPAMINE TITRATED OFF, ATTEMPTING TO TITRATE LEVO DOWN, CURRENTLY AT 18MCG WITH STABLE BP AND MAP. PT MEDICATED WITH FENTANYL FOR HIGH RR, IS NOW RESTING QUIETLY IN BED WITH NO AGITATION OR S/SX DISCOMFORT. PT HAS DENIED PAIN THIS AFTERNOON, ABD REMAINS RIGID ON L SIDE, BT HYPOACTIVE. FLANK AND GROIN BRUISING REMAINS PRESENT, GROIN SITES REMAIN WNL. TF REMAINS OFF PER ORDERS. OOZING FROM TRIALYSIS CATH CONTINUES, DRESSING CHANGED AGAIN THIS EVENING. PT CONTINUES TO FOLLOW COMMANDS AND ANSWER QUESTIONS, REMAINS OFF OF SEDATION. LS COARSE, VENT PS 10/8, FIO2 80%. RR 23, SPO2 MID 90'S, Vt 300'S. GOOD URINE OUTPUT THIS SHIFT, >1L, NO DIALYSIS. PENIS, SCLERA, AND EXTREM EDEMA UNCHANGED.
[2020-09-30 19:06] LABS: Hematocrit 29.6 % (37.0-53.0); Hemoglobin 10.2 g/dL (13.5-17.5)
[2020-10-01 03:27] LABS: BASOPHILS ABSOLUTE AUTO 0.02 K/mm3 (0.00-0.23); BASOPHILS PERCENT AUTO 0 % (0-2); Hematocrit 26.5 % (37.0-53.0); Hemoglobin 9.2 g/dL (13.5-17.5); LYMPHOCYTES ABSOLUTE AUTO 0.81 K/mm3 (0.84-5.20); LYMPHOCYTES PERCENT AUTO 9 % (21-46); MONOCYTES ABSOLUTE AUTO 1.15 K/mm3 (0.16-1.47); MONOCYTES PERCENT AUTO 13 % (4-13); Mean Corpuscular HGB 29.6 pg (26.0-34.0); Mean Corpuscular HGB Conc 34.7 g/dL (31.5-36.5); Mean Corpuscular Volume 85 fL (80-100); Mean Platelet Volume 11.6 fL (9.1-12.4); NRBC ABSOLUTE 0.02 K/mm3 (0.00-0.02); NRBC Auto 0.2 /100 WBC (0.0-0.2); Platelet Count 100 K/mm3 (150-400); RDW Standard Deviation 46.3 fL (35.1-46.3); Red Blood Cell Count 3.11 M/mm3 (4.30-5.90); White Blood Cell Count 8.98 K/mm3 (4.00-11.30)
[2020-10-01 03:28] LABS: EOSINOPHILS ABSOLUTE AUTO 0.14 K/mm3 (0.00-0.68); EOSINOPHILS PERCENT AUTO 2 % (0-6); IMMATURE GRAN ABSOLUTE AUTO 0.23 K/mm3 (0.00-0.10); IMMATURE GRAN PERCENT AUTO 3 % (0-1); NEUTROPHILS ABSOLUTE AUTO 6.63 K/mm3 (1.96-9.15); NEUTROPHILS PERCENT AUTO 74 % (41-73)
[2020-10-01 03:50] LABS: Anion Gap 14 mmol/L (6-16); Blood Urea Nitrogen 83 mg/dL (8-24); Bun/Creatinine Ratio 17.1 (12.0-20.0); CO2, Blood 24 mmol/L (21-32); Calcium, Blood 7.9 mg/dL (8.5-10.1); Chloride, Blood 94 mmol/L (98-108); Creatinine, Blood 4.86 mg/dL (0.60-1.20); Glomerular Filtration Rate 12 (60-); Glucose, Blood 160 mg/dL (70-99); Magnesium, Blood 2.4 mg/dL (1.6-2.4); Potassium, Blood 3.6 mmol/L (3.5-5.5); Sodium, Blood 132 mmol/L (136-145); Vancomycin, Random 31.7 ug/mL
[2020-10-01 03:55] LABS: Phosphorus, Blood 8.7 mg/dL (2.5-4.9)
--- NOTE | 2020-10-01 05:45 | NUR ---
SHIFT SUMMARY ABOUT 1 AM PT. TIRED OUT, TRIGGERING APNEA ALARM, SWITCHED BACK TO AC MODE WHICH REQUIRED SEDATION. STARTED PROPOFOL, HAD TO RESTART LEVOPHED. ASSESSMENT IS CHARTED. VSS. WILL CONTINUE TO MONITOR.
--- NOTE | 2020-10-01 08:00 | NUR ---
INITIAL ASSESSMENT PATIENT INTUBATED AND SEDATED. PATIENT RESPONDS TO VERBAL STIMULI. PATIENT NOT FOLLOWING ANY SIMPLE COMMANDS AT THIS TIME. SCLERAL EDEMA NOTED. SCLERA REDDENED. PATIENT AFEBRILE. NO SIGNS OF PAIN NOTED AT THIS TIME. PATIENT HAS WEAK, GROSS MOVEMENTS. PATIENT ON VENT SETTINGS OF AC 14, TV 500, PEEP 8 AND 40% FIO2. LUNGS CLEAR. DIMINISHED IN LOWER LOBES. LARGE AMOUNT OF THICK/ FROTHY, PINK/ GRIJALVA SECRETIONS BEING SUCTIONED FROM ETT. PATIENT IN SR WITH BBB, HR 60S TO 70S. SBP 90S TO LOW 100S. CLICK NOTED UPON AUSCULTATION. PULSES FAINT. PITTING EDEMA NOTED TO BILAT HANDS AND BLES. SCDS PLACED. ABDOMEN MODERATELY DISTENDED, FIRM, WITH HYPOACTIVE BS NOTED. LEFT AND R SIDES OF ABDOMEN APPEAR EQUAL IN SIZE AND FIRMNESS AT THIS TIME. OG IN PLACE; CLAMPED. NO DOCUMENTED BM SINCE ADMITTED TO HOSPITAL. TEIXEIRA DRAINING YELLOW COLORED URINE. PENILE EDEMA AND BRUISING NOTED. BILAT GROIN ACCESS SITES NOTED. NO HEMATOMAS NOTED. BRUISING NOTED AT BILAT FLANKS, GROIN SITES, L INNER THIGH, R AC. BURN NOTED TO R UPPER BACK. TRIALYSIS CATH TO R IJ. PICC TO L UA. PROPOFOL INFUSING AT 15 MCG/ KG/ MINUTE, LEVOPHED AT 5 MCG/ MINUTE, NS TKO. BED LOW, CALL LIGHT IN REACH. WILL CONTINUE TO MONITOR PATIENT FREQUENTLY THROUGHOUT SHIFT.
[2020-10-01 08:10] LABS: HBSAG SCREEN Negative (Negative); HEP A AB, IGM Negative (Negative); HEP B CORE AB, IGM Negative (Negative); HEP C VIRUS AB <0.1 (0.0-0.9)
--- NOTE | 2020-10-01 12:15 | NUR ---
PATIENT AFEBRILE. VENT SETTINGS AC 14, TV 500, PEEP 5 AND 30% FIO2. SECRETIONS DOWN TO MODERATE AMOUNT FROM LARGE AMOUNT. HR IN THE 60S. SBP LOW 100S TO 120S. LEVOPHED AT 1 MCG/ MINUTE. PROPOFOL AT 20 MCG/ KG/ MINUTE. BLOOD SUGAR AT 132; NO COVERAGE INDICATED. NO OTHER ACUTE CHANGES TO NOTE ON AT THIS TIME. WILL CONTINUE TO MONITOR.
[2020-10-01 14:21] LABS: Hematocrit 27.7 % (37.0-53.0); Hemoglobin 9.8 g/dL (13.5-17.5)
--- NOTE | 2020-10-01 16:00 | NUR ---
PATIENT AFEBRILE. PATIENT REMAINS ON SAME VENT SETTINGS. HR IN THE 60S. SBP 90S TO LOW 100S. NO CHANGE TO ABDOMINAL DISTENTION, BRUISING. NO CHANGES TO BILAT GROIN SITES. TF INFUSING AT GOAL RATE OF 10 MLS/ HOUR. NO SIGNS OF PAIN NOTED AT THIS TIME. BED LOW. AT BEDSIDE. WILL CONTINUE TO MONITOR.
--- NOTE | 2020-10-01 19:13 | NUR ---
SHIFT SUMMARY PATIENT REMAINED INTUBATED AND SEDATED. DR. MCFADDEN WANTED PATIENT TO REST THIS SHIFT. PATIENT REMAINED RESPONDING TO EITHER VERBAL OR PAINFUL STIMULI, DEPENDING ON LEVEL OF SEDATION. PATIENT HAD NO SIGNS OF PAIN THIS SHIFT. PATIENT REMAINED AFEBRILE. PATIENT CONTINUED TO HAVE WEAK, GROSS MOVEMENTS. PATIENT DECREASED FROM AC 14, TV 500, PEEP 8 AND 40% FIO2 TO PEEP 5 AND 30% FIO2. PATIENT HAD MODERATE TO LARGE AMOUNT OF THICK/ FROTHY, GRIJALVA/ PINK SPUTUM BEING SUCTIONED FROM ETT. PATIENT REMAINED IN SR WITH BBB. HR 60S TO 70S. SBP 90S TO 120S. LEVOPHED ABLE TO BE PLACED ON SB FOR SHORT TIME THIS SHIFT. LEVOPHED CURRENTLY AT 1 MCG/ MINUTE. NO BM THIS SHIFT. PATIENT RECEIVED PRN SUPPOSITORY. TF RESTARTED THIS SHIFT. DISTENDED, FIRM ABDOMEN REMAINED THE SAME THIS SHIFT. BILAT SIDES REMAIN EQUAL IN SIZE AND FIRMNESS. TEIXEIRA DRAINED 2050 MLS OF YELLOW COLORED URINE. NO CHANGES TO SKIN. PROPOFOL AT 20 MCG/ KG/ MINUTE. MARKIE STARTED THIS SHIFT BY DR. ZAPIEN. CAME TO VISIT TODAY. PATIENT APPEARS COMFORTABLE AT THIS TIME. BED LOW, CALL LIGHT IN REACH. REPORT WILL BE GIVEN TO ONCOMING LEGEND MAKER NURSE SHORTLY.
[2020-10-02 03:38] LABS: BASOPHILS ABSOLUTE AUTO 0.03 K/mm3 (0.00-0.23); BASOPHILS PERCENT AUTO 0 % (0-2); EOSINOPHILS ABSOLUTE AUTO 0.36 K/mm3 (0.00-0.68); EOSINOPHILS PERCENT AUTO 3 % (0-6); Hematocrit 28.4 % (37.0-53.0); Hemoglobin 9.9 g/dL (13.5-17.5); IMMATURE GRAN ABSOLUTE AUTO 0.28 K/mm3 (0.00-0.10); IMMATURE GRAN PERCENT AUTO 3 % (0-1); LYMPHOCYTES ABSOLUTE AUTO 0.89 K/mm3 (0.84-5.20); LYMPHOCYTES PERCENT AUTO 8 % (21-46); MONOCYTES ABSOLUTE AUTO 1.08 K/mm3 (0.16-1.47); MONOCYTES PERCENT AUTO 10 % (4-13); Mean Corpuscular HGB 29.9 pg (26.0-34.0); Mean Corpuscular HGB Conc 34.9 g/dL (31.5-36.5); Mean Corpuscular Volume 86 fL (80-100); Mean Platelet Volume 11.8 fL (9.1-12.4); NEUTROPHILS ABSOLUTE AUTO 8.28 K/mm3 (1.96-9.15); NEUTROPHILS PERCENT AUTO 76 % (41-73); Platelet Count 125 K/mm3 (150-400); RDW Coefficient Variation 14.9 % (11.7-14.2); RDW Standard Deviation 46.3 fL (35.1-46.3); Red Blood Cell Count 3.31 M/mm3 (4.30-5.90); White Blood Cell Count 10.92 K/mm3 (4.00-11.30)
[2020-10-02 03:58] LABS: Bun/Creatinine Ratio 17.7 (12.0-20.0); Calcium, Blood 8.1 mg/dL (8.5-10.1); Creatinine, Blood 5.36 mg/dL (0.60-1.20); Potassium, Blood 3.3 mmol/L (3.5-5.5)
--- NOTE | 2020-10-02 04:43 | NUR ---
SHIFT SUMMARY PATIENT HAS SLEPT WELL THROUGH NIGHT. ATTEMPTED TWO SEDATION VACATIONS, DECREASED PROPOFOL TO 5 MCG/KG/MIN, BOTH TIME PT. WOKE UP COUGHING, ANXIOUS, BECAME DIAPHORETIC, WITHIN 20 MINUTES INCREASED BACK UP TO 20 MCG/KG/MIN. TOLERATING TUBE FEEDINGS, HAD 1 SMALL BOWEL MOVEMENT TONIGHT. ASSESSMENT IS CHARTED. VSS. WILL CONTINUE TO MONITOR.
--- NOTE | 2020-10-02 08:00 | NUR ---
ASSUMED CARE BEDSIDE REPORT FROM EWA LIU AT 0700. PT INTUBATED AND SEDATED. VENT SETTINGS AC 14/500/5/30%. PROPOFOL GTT AT 15 MCG/KG/MIN. PT OPENS EYES TO VERBAL STIMULI, FOLLOWS COMMANDS DURING SEDATION VACATION. COUGH/GAG/SWALLOW REFLEX PRESENT. PT APPEARS ANXIOUS, RESTARTED PROPOFOL. LEVOPHED GTT FOR MAP >65. LUNGS DIMINISHED IN BASES. MODERATE, THIN SECRETIONS THROUGH ETT. ABD ROUND, DISTENDED. TENDER THROUGHOUT. HYPOACTIVE BT. ECCHYMOSIS NOTED TO BILATERAL FLANKS AND GROINS. BOARDERS MARKED, SLIGHT ADVANCEMENT OF LIGHT PURPLE ECCHYMOSIS OUTSIDE BOARDERS. 2+ EDEMA IN EXTREMITIES. TEIXEIRA PATENT, DRAINING CLEAR YELLOW URINE TO GRAVITY. TRIALYSIS CATH TO RIGHT IJ, DRESSING TO BE CHANGED BY DIALYSIS NURSE THIS SHIFT. PICC TO LUE, DRESSING C/D/I. WILL CONTINUE TO MONITOR.
--- NOTE | 2020-10-02 09:03 | NUR ---
DR MCFADDEN ROUNDS PLAN FOR DIALYSIS, KIMO LIU IN ROOM. WILL ATTEMPT TO PLACE PT ON SPONT AFTER DIALYSIS.
[2020-10-02 12:08] LABS: Vancomycin, Random 17.2 ug/mL
--- NOTE | 2020-10-02 15:16 | NUR ---
Spiritual care visit conducted. Patient's spouse, Kathy is in pending sale to [facility] [employer]'s rm and tells me about the events that have happened with patient since spiritual care was with her a week ago. She tells me that the patient is at peace about but she is also praying for a miracle. She then talks at length about her life, her amira, the patient's career and how they met. She is tearful at times but is easily encouraged by sharing about her [employer] amira and conversations centered around God. I noramlize Kathy's experience, and therapeutic listening, provide pastoral day camp counselor and prayer. She responds well and shows signs of being encouraged in her amira and having increased peace. Spiritual care will remain available.
--- NOTE | 2020-10-02 18:22 | NUR ---
SHIFT SUMMARY PT REMAINS INTUBATED AND SEDATED. VENT SETTINGS AC 14/500/5/40% ENTIRE SHIFT. LUNGS CLEAR, DIM IN BASES. SMALL AMOUNT OF THIN SECRETIONS. OPENS EYES TO VERBAL STIMULI. PROPOFOL GTT AT 15 MCG/KG/HR. DIALYSIS TODAY, 1L OFF. CONTINUED DIURETICS, 1800 ML CLEAR YELLOW URINE OUT. TEIXEIRA PATENT, DRAINING TO GRAVITY. ABD ROUND, SOFT, TENDER. BT HYPOACTIVE. TUBE FEEDS INCREASED. LEVO GTT TITRATED OFF THIS SHIFT. VSS. WILL CONTINUE TO MONITOR UNTIL REPORT TO ONCOMING NURSE.
[2020-10-03 03:49] LABS: BASOPHILS ABSOLUTE AUTO 0.03 K/mm3 (0.00-0.23); BASOPHILS PERCENT AUTO 0 % (0-2); EOSINOPHILS ABSOLUTE AUTO 0.15 K/mm3 (0.00-0.68); EOSINOPHILS PERCENT AUTO 1 % (0-6); Hematocrit 28.3 % (37.0-53.0); Hemoglobin 9.7 g/dL (13.5-17.5); IMMATURE GRAN ABSOLUTE AUTO 0.27 K/mm3 (0.00-0.10); IMMATURE GRAN PERCENT AUTO 2 % (0-1); LYMPHOCYTES ABSOLUTE AUTO 0.74 K/mm3 (0.84-5.20); LYMPHOCYTES PERCENT AUTO 6 % (21-46); MONOCYTES ABSOLUTE AUTO 0.93 K/mm3 (0.16-1.47); MONOCYTES PERCENT AUTO 8 % (4-13); Mean Corpuscular HGB 29.8 pg (26.0-34.0); Mean Corpuscular HGB Conc 34.3 g/dL (31.5-36.5); Mean Corpuscular Volume 87 fL (80-100); Mean Platelet Volume 11.2 fL (9.1-12.4); NEUTROPHILS ABSOLUTE AUTO 9.76 K/mm3 (1.96-9.15); NEUTROPHILS PERCENT AUTO 82 % (41-73); Platelet Count 157 K/mm3 (150-400); RDW Coefficient Variation 14.7 % (11.7-14.2); Red Blood Cell Count 3.26 M/mm3 (4.30-5.90); White Blood Cell Count 11.88 K/mm3 (4.00-11.30)
[2020-10-03 04:04] LABS: Bun/Creatinine Ratio 18.1 (12.0-20.0); Calcium, Blood 8.3 mg/dL (8.5-10.1); Creatinine, Blood 3.87 mg/dL (0.60-1.20); Magnesium, Blood 2.5 mg/dL (1.6-2.4); Phosphorus, Blood 5.6 mg/dL (2.5-4.9); Potassium, Blood 3.5 mmol/L (3.5-5.5)
--- NOTE | 2020-10-03 05:47 | NUR ---
SHIFT SUMMARY PATIENT SLEPT WELL THROUGH NIGHT. TRIALYSIS LINE CONTINUES TO OOZE, HEMOGLOBIN STABLE. CHANGED DRESSING ONCE, PLACED YOVANY PATCHES. DOUBLE-CHECKED WEIGHT, LARGE DIFFERENCE FROM YESTERDAY, OVER 5KG, BOTH CONFIRMING 99.1 KG. ASSESSMENT IS CHARTED. VSS. WILL CONTINUE TO MONITOR.
--- NOTE | 2020-10-03 08:41 | NUR ---
ASSUMED CARE BEDSIDE REPORT FROM [facility] AT 0700. PT INTUBATED AND SEDATED. VENT SETTINGS AC 14/500/5/40%. PT c SMALL THICK YELLOW/CLEAR SECRETIONS THROUGH ETT. LUNGS DIMINISHED IN BASES. PROPOFOL GTT AT 20 MCG/KG/MIN AT SHIFT CHANGE. PT GRIMACES c CARE. FOLLOWS SIMPLE DIRECTIONS. ABD DISTENDED. HYPOACTIVE BT. ECHYMOSIS TO BILATERAL FLANKS, GROIN, TESTICLES, PENIS, UPPER LEFT THIGH. EXTENDED PAST PREVIOUS BOARDERS MARKED. NEAR BOARDER MARKED AND DATED. TUBE FEEDS INCREASED TO GOAL OF 35 ML/HR c 30 ML FLUSHES q4 HR. MINIMAL RESIDUALS. TEIXEIRA PATENT, DRAINING CLEAR YELLOW URINE TO GRAVITY. TRIALYSIS CATH TO R[facility], DRESSING INTACT. PICC TO E, DRESSING C/D/I. 2+ EDEMA TO HANDS, 1+ TO LOWER EXT. BP STABLE. SR c BBB, RATE 80'S. WILL CONTINUE TO MONITOR.
[2020-10-03 10:20] LABS: Hematocrit 30.1 % (37.0-53.0); Hemoglobin 10.2 g/dL (13.5-17.5)
[2020-10-03 10:47] LABS: International Normalized Ratio 1.21; Prothrombin Time Results 12.9 Sec (9.7-11.5)
[2020-10-03 14:03] LABS: Vancomycin, Random 19.2 ug/mL
--- NOTE | 2020-10-03 17:54 | NUR ---
SHIFT SUMMARY PT REMAINS INTUBATED AND SEDATED. VENT SETTINGS SPONT PS 12/5 40%. LUNGS CLEAR, DIMINISHED IN BASES. PT c COPIOUS AMOUNT OF THIN CLEAR SECRETIONS THIS SHIFT. FREQUENTLY COUGH, HIGH PEAK PRESSURES ON VENT, RESOLVED c SUCTIONING. TITAL VOLUMES 300ML. HEPARIN STARTED THIS SHIFT, PHARMACY MANAGING. 26 UNITS/KG/HR AT THIS TIME. MIDODRINE HELD THIS AFTERNOON. BP STABLE. SR, BBB, RATE 90'S. ABD DISTENDED, SOFT. HYPOACTIVE BT. TOLERATING TUBE FEEDS WELL, AT GOAL OF 30 ML/HR. TEIXEIRA PATENT, DRAINING TO GRAVITY, 2000ML CLEAR YELLOW URINE OUT. ECCHYMOSIS REMAINS SAME THIS AM. MAHURKER TO RUJ CONTINUES TO OOZE. DRESSING CHANGED, INTACT AT THIS TIME. PICC TO [facility]. PER DR MCFADDEN, ATTEMPT TO REMAIN OFF PROPOFOL, USE FENTANYL PRN FOR VENT COMPLIANCE IF NECESSARY. WILL CONTINUE TO MONITOR UNTIL REPORT TO ONCOMING NURSE.
[2020-10-04 06:31] LABS: BASOPHILS ABSOLUTE AUTO 0.03 K/mm3 (0.00-0.23); BASOPHILS PERCENT AUTO 0 % (0-2); EOSINOPHILS ABSOLUTE AUTO 0.16 K/mm3 (0.00-0.68); EOSINOPHILS PERCENT AUTO 1 % (0-6); Hematocrit 30.6 % (37.0-53.0); Hemoglobin 10.2 g/dL (13.5-17.5); IMMATURE GRAN PERCENT AUTO 3 % (0-1); LYMPHOCYTES ABSOLUTE AUTO 0.96 K/mm3 (0.84-5.20); LYMPHOCYTES PERCENT AUTO 6 % (21-46); MONOCYTES ABSOLUTE AUTO 0.78 K/mm3 (0.16-1.47); MONOCYTES PERCENT AUTO 5 % (4-13); Mean Corpuscular HGB 29.4 pg (26.0-34.0); Mean Corpuscular HGB Conc 33.3 g/dL (31.5-36.5); Mean Corpuscular Volume 88 fL (80-100); Mean Platelet Volume 11.1 fL (9.1-12.4); NEUTROPHILS ABSOLUTE AUTO 12.63 K/mm3 (1.96-9.15); NEUTROPHILS PERCENT AUTO 84 % (41-73); Platelet Count 196 K/mm3 (150-400); RDW Coefficient Variation 14.7 % (11.7-14.2); RDW Standard Deviation 48.1 fL (35.1-46.3); Red Blood Cell Count 3.47 M/mm3 (4.30-5.90); White Blood Cell Count 14.96 K/mm3 (4.00-11.30)
[2020-10-04 06:44] LABS: Bun/Creatinine Ratio 21.7 (12.0-20.0); Calcium, Blood 8.6 mg/dL (8.5-10.1); Creatinine, Blood 4.11 mg/dL (0.60-1.20); Potassium, Blood 3.5 mmol/L (3.5-5.5)
--- NOTE | 2020-10-04 07:07 | NUR ---
SHIFT SUMMARY PT REMAINS INTUBATED WITH VENT SETTINGS PS 12/5 FIO2 50%, PT CONTINUES TO HAVE COPIOUS AMOUNTS OF SECRETIONS FROM ETT. PT OPENS EYES SPONTANEOUSLY AND TO VERBAL STIMULUS, PT TRACKS OBJECTS AT TIMES, PT DOES NOT FOLLOW COMMANDS. MONITOR SHOWS SINUS RHYTHM WITH HR 90'S-110, BP STABLE. BRUISING TO BILAT FLANK OUTLINED AND STABLE. OOZING CONTINUES FROM R[facility] HEMODIALYSIS SITE, DRESSING CHANGED THIS SHIFT. OG REMAINS IN PLACE WITH TF @ 30ml/hr. TEIXEIRA IN PLACE WITH GOOD URINE OUTPUT.
--- NOTE | 2020-10-04 07:15 | NUR ---
Assumed care of pt at 0700 from [facility]. Pt off sedation. Alert. Responds to verbal stimulus. Raises eyebrows when instructed to do so, but does not follow any other commands. Withdraws extremities from unpleasant stimulus but otherwise does not move arms/legs. Ventilator settings PS 12/5, 40%. SpO2 90% or greater. Pt tolerating ventilator well. In bilat wrist restraints to prevent self extubation. SR per monitor with BBB. BP stable. TF and flush per orders with minimal residual. Smear BM cleaned. Pt on heparin drip to protect mechanical valve. Diffuse bleeding to bilateral rib/hip area, does not extend beyond previous lines that gudelia bruising boundary.
[2020-10-04 11:22] LABS: International Normalized Ratio 1.22
--- NOTE | 2020-10-04 11:30 | NUR ---
ASSUMED PT CARE FROM NOE MERCADO. PT NOT SEDATED-AWAKE, ALERT, AND GRIMACING. PT NODS "NO" WHEN ASKED IF IN PAIN. COMPLIANT WITH VENTILATOR-VENT ON SPONTANUEOUS PS 12 PEEP 5 FIO2 50%-SUCTION PRODUCTIVE OF LARGE AMOUNT OF THICK, BROWN/GREEN SPUTUM. DR. CHAPMAN IN TO SEE PT-MADE AWARE OF CONCERN REGARDING THE AMOUNT OF SECRETIONS-PT TOLERATING VENT ON PS-MAINTAINS SATS 90%, CONCERN IS INCREASED AMOUNT OF SECRETIONS AND COLOR-SPUTUM SENT. HEPARIN DRIP TITRATED UP TO 18 UNITS/KG/HR=28.1 CC/HR PER PHARMACY PROTOCOL-SEE EMAR.CBG 337 COVERED PER MEDIUM SLIDING SCALE-SEE EMAR. DR. CHAPMAN AWARE OF ELEVATED CBG-WILL MONITOR TODAY AND EVALUATE WHETHER OR NOT TO INCREASE TO HIGH SLIDING SCALE TOMORROW-LONG ACTING INSULIN FIRST DOSE WAS GIVEN 10/04/20 AM.
--- NOTE | 2020-10-04 13:15 | NUR ---
SpO2 decreasing. RR 18-20 and TV 400-500. RT called to bedside. Required to be changed back to full support with ACVC 14/500/8/60%. Dr Keen notified. Propofol restarted for ventilator tolerance. Will continue to closely reassess.
--- NOTE | 2020-10-04 14:15 | NUR ---
BP dropped after increasing PEEP on ventilator and adding sedation. Discussed with Dr Keen, decision made to start levophed.
[2020-10-04 15:08] LABS: Hemoglobin 9.9 g/dL (13.5-17.5)
--- NOTE | 2020-10-04 19:00 | NUR ---
ASSUMED CARE ASSUMED CARE OF PATIENT. REMAINS INTUBATED- AC 14, TV 500, PEEP 8, FIO2 50%. RR 14-15. CONTINUES WITH COPIOUS ETT SECRETIONS. SEDATED WITH PROPOFOL AT 30MCG/KG/MIN. BILATERAL SOFT WRIST RESTRAINTS IN PLACE TO PREVENT SELF-EXTUBATION. MINIMAL GROSS MOTOR MOVEMENT NOTED. NOT FOLLOWING ANY COMMANDS. LEVOPHED AT 10MCG/MIN TO MAINTAIN MAP >65. HEPARIN INFUSING AT 19UNITS/KG/HR (29.6CC/HR) PER PHARMACY. OG WITH PIVOT 1.5 AT GOAL RATE OF 30CC/HR. TEIXEIRA PATENT AND DRAINING CLEAR YELLOW URINE. LEVY PICC PATENT. RIJ HEMODIALYSIS CATH INTACT. SCATTERED ECCHYMOSES T/O BODY. SEE SHIFT ASSESSMENT FOR FULL ASSESSMENT.
--- NOTE | 2020-10-04 19:31 | NUR ---
SUMMARY At this time, pt receiving propofol at 30 mcg/kg/min for ventilator tolerance. Ventilator settings AC 14/500/8/60%. SpO2 90% or greater. Copious amounts of thick, martell sputum suctioned from ETT. Specimen sent. Requiring 10 mcg/min levophed to maintain MAP [address] Keen in to see pt this evening. Plan of care discussed with provider. Albumin started. Heparin infusing per pharmacy orders. OG tube with feeds and flushes per orders. Maximum resuidal measured this shift was 40 mL. Excellent urine output this shift. Report given to oncoming RN to assume care, Tamra.
[2020-10-05 05:28] LABS: BASOPHILS ABSOLUTE AUTO 0.03 K/mm3 (0.00-0.23); BASOPHILS PERCENT AUTO 0 % (0-2); EOSINOPHILS ABSOLUTE AUTO 0.37 K/mm3 (0.00-0.68); EOSINOPHILS PERCENT AUTO 3 % (0-6); Hematocrit 24.7 % (37.0-53.0); Hemoglobin 8.2 g/dL (13.5-17.5); IMMATURE GRAN ABSOLUTE AUTO 0.16 K/mm3 (0.00-0.10); IMMATURE GRAN PERCENT AUTO 1 % (0-1); LYMPHOCYTES ABSOLUTE AUTO 0.82 K/mm3 (0.84-5.20); LYMPHOCYTES PERCENT AUTO 7 % (21-46); MONOCYTES PERCENT AUTO 4 % (4-13); Mean Corpuscular HGB 29.5 pg (26.0-34.0); Mean Corpuscular HGB Conc 33.2 g/dL (31.5-36.5); Mean Corpuscular Volume 89 fL (80-100); Mean Platelet Volume 11.4 fL (9.1-12.4); NEUTROPHILS ABSOLUTE AUTO 10.18 K/mm3 (1.96-9.15); NEUTROPHILS PERCENT AUTO 85 % (41-73); Platelet Count 180 K/mm3 (150-400); RDW Coefficient Variation 14.6 % (11.7-14.2); RDW Standard Deviation 47.3 fL (35.1-46.3); Red Blood Cell Count 2.78 M/mm3 (4.30-5.90); White Blood Cell Count 12.06 K/mm3 (4.00-11.30)
[2020-10-05 05:46] LABS: Albumin, Blood 3.1 g/dL (3.4-5.0); Anion Gap 11 mmol/L (6-16); Blood Urea Nitrogen 108 mg/dL (8-24); Bun/Creatinine Ratio 25.4 (12.0-20.0); CO2, Blood 29 mmol/L (21-32); Calcium, Blood 8.8 mg/dL (8.5-10.1); Chloride, Blood 94 mmol/L (98-108); Creatinine, Blood 4.26 mg/dL (0.60-1.20); Glomerular Filtration Rate 14 (60-); Glucose, Blood 297 mg/dL (70-99); Phosphorus, Blood 6.1 mg/dL (2.5-4.9); Potassium, Blood 3.3 mmol/L (3.5-5.5); Sodium, Blood 134 mmol/L (136-145)
--- NOTE | 2020-10-05 06:30 | NUR ---
SHIFT SUMMARY NO ACUTE CHANGES. REMAINS INTUBATED- AC 16, TV 500, PEEP 8, FIO2 NOW 40%. CONTINUES WITH COPIOUS ETT SECRETIONS AND MODERATE ORAL SECRETIONS. MONITOR SHOWS NSR WITH BBB. BP STABLE WITH LEVOPHED NOW AT 1MCG/MIN. RIJ HD CATH OOZING BLOOD- DRSG CHANGED X 2 DURING SHIFT. LEVY PICC PATENT. OG WITH PIVOT 1.5 AT GOAL RATE OF 30CC/HR. RESIDUALS BETWEEN 20-75CC. INCONTINENT OF SOFT BROWN STOOL X 2. TEIXEIRA PATENT AND DRAINING TO GRAVITY- SMALL AMOUNT OF SEDIMENT NOTED IN TUBING THIS AM. SEDATED WITH PROPOFOL AT 30MCG/KG/MIN. POSITIVE COUGH AND GAG. MINIMAL SPONTANEOUS MOVEMENT NOTED. WILL REPORT TO ONCOMING RN WHEN AVAILABLE.
--- NOTE | 2020-10-05 08:00 | NUR ---
PT GIVEN SEDATION VACATION X 15 MINUTES. PT OPENED EYES TO VOICE, BUT NOT ABLE TO FOLLOW COMMANDS. PT GRIMACING AND COUGHING. PROPOFOL RESUMED @ 35 MCG/KG/MIN. AFEBRILE. 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 MAINTAINS [id number] WITH LEVOPHED @ 1 MCG/MIN. NOTED RUN OF V-TACH-MG+ ADDED TO AM LABS. LUNGS DIMINISHED IN THE BASES-COARSE THROUGH OUT THE RIGHT LUNG HINDS. ETT CONTINUES TO VENT: AC 14,TV 500, PEEP 8, FIO2 40%-SATS GREATER THAN 90% SUCTION PRODUCTIVE OF LARGE AMOUNTS OF THICK, GREEN SPUTUM. TOLERATING TF WELL. NO GI DISTRESS. GENERALIZED EDEMA NOTED-LEFT HAND IS VERY SWOLLEN-ELEVATED ON PILLOWS. PT HAS BRUISING TO ABDOMEN, GROIN, PENIS, AND SCROTUM. PT PENIS AND SCROTUM ARE ALSO QUITE SWOLLEN. TEIXEIRA WITH MODERATE AMOUNT OF YELLOW URINE TO UROMETER. RIJ HEMODIALYSIS CATHETER OOZING BLOOD. THE DRESSING WAS SATURATED WITH BLOOD. DRESSING CHANGE COMPLETED.
--- NOTE | 2020-10-05 08:00 | NUR ---
RIJ HEMODIALYSIS CATHETER OOZING BLOOD. DRESSING SATURATED WITH BLOOD. DRESSING CHANGED COMPLETED- YOVANY PATCH PLACED ON EITHER SIDE OF THE INSERTION SITE WHERE THE OOZING WAS NOTED, THEN COVERED WITH CHG DRESSING.
--- NOTE | 2020-10-05 08:30 | NUR ---
SBP 130'S-LEVOPHED DRIP ON STANDBY.
[2020-10-05 09:44] LABS: Vancomycin, Random 16.9 ug/mL
--- NOTE | 2020-10-05 12:00 | NUR ---
PT RESTING QUIETLY WHEN NOT DISTURBED ON PROPOFOL @ 30 MCG/KG/MIN. PT OPENS EYES TO VOICE, BUT NOT ABLE TO FOLLOW COMMANDS. VS WDL-PRESSORS REMAIN OFF. NO VENT CHANGES- MAINTAINS SATS GREATER THAN 90% ON FIO2 40% PT TOLERATING TF WELL. CBG 236 COVERED PER SLIDING SCALE-SEE EMAR. INCONTINENT OF MEDIUM, SOFT, FORMED STOOL. MICHAEL CARE, PARTIAL LINEN CHANGE COMPLETED, AND PT REPOSITIONED TO COMFORT ON RIGHT SIDE.
--- NOTE | 2020-10-05 13:30 | NUR ---
[id number] OF HEAD W/O CONTRAST-VIA BED. RT AND RN @ BEDSIDE. PT TOLERATED PROCEDURE WELL. NO ACUTE DISTRESS NOTED.
--- NOTE | 2020-10-05 16:00 | NUR ---
PT REMAINS SEDATED, INTUBATED, AND RESTRAINED. PT OPENED HIS EYES WHEN HIS CALLED HIS NAME, BUT SEEMED TO STRARE RIGHT THROUGH HER. NOT FOLLOWING COMMANDS. REMAINS AFEBRILE-ECG SHOWS SR WITH FIRST DEGREE AV AND BBB-INTERMITTENT AFIB AND OCCASIONAL RUNS OF VTACH. BP REMAINS STABLE OFF OF LEVOPHED. LUNGS DIMINISHED THROUGH OUT AND COARSE THIS AFTERNOON. SUCTION CONTINUES TO BE PRODUCTIVE OF A LARGE AMOUNT OF THICK, GREEN SPUTUM. NEW TF VITAL HIGH PROTEIN @ 30 CC/HR INITIATED. MINIMAL RESIDUAL THIS AFTERNOON. RIGHT GROIN SITE WITH APROX. DIME SIZED WOUND WHERE IABP WAS (REMOVED 09/27/20) WITH SLOUGH AND PURULENT DRAINAGE NOTED. CLEANSED WITH WOUND CLEANSER, PATTED DRY, THEN PLACED A DIME SIZED PIECE OF ALGINATE AND COVERED WITH CHG DRESSING. THE SURROUNDING SKIN IS BEEFY RED IN APPEARANCE.
--- NOTE | 2020-10-05 17:55 | NUR ---
PTT DRAWN AND SENT TO LAB. CBG 246 COVERED PER SLIDING SCALE-SEE EMAR. URINE OUTPUT 500 CC THIS SHIFT-ANTICIPATE DIALYSIS TOMORROW PER DR. ZAPIEN.
--- NOTE | 2020-10-05 19:00 | NUR ---
ASSUMED CARE ASSUMED CARE OF PATIENT. REMAINS INTUBATED- AC 14, TV 500, PEEP 8, FIO2 50%. RR 14-15. SEDATED WITH PROPOFOL AT 30MCG/KG/MIN. OPENS EYES TO VERBAL STIMULI. MINIMAL GROSS MOTOR MOVEMENT NOTED. NOT FOLLOWING ANY COMMANDS. BILATERAL SOFT WRIST RESTRAINTS IN PLACE TO PROTECT TUBES/LINES. MONITOR SHOWS NSR WITH BBB, RATE 60s. BP STABLE AT THIS TIME. OG WITH VITAL HIGH PROTEIN AT GOAL RATE OF 30CC/HR. TEIXEIRA PATENT AND DRAINING YELLOW URINE. HEPARIN INFUSING AT 19UNITS/KG/HR (29.6CC/HR) PER PHARMACY. LEVY PICC PATENT, DRSG C/D/I. PREM HD CATH WITH DRSG C/D/I. SEE SHIFT ASSESSMENT FOR FULL ASSESSMENT.
[2020-10-06 04:55] LABS: BASOPHILS ABSOLUTE AUTO 0.03 K/mm3 (0.00-0.23); BASOPHILS PERCENT AUTO 0 % (0-2); EOSINOPHILS ABSOLUTE AUTO 0.42 K/mm3 (0.00-0.68); EOSINOPHILS PERCENT AUTO 3 % (0-6); Hematocrit 23.9 % (37.0-53.0); Hemoglobin 8.1 g/dL (13.5-17.5); IMMATURE GRAN ABSOLUTE AUTO 0.16 K/mm3 (0.00-0.10); IMMATURE GRAN PERCENT AUTO 1 % (0-1); LYMPHOCYTES PERCENT AUTO 12 % (21-46); MONOCYTES ABSOLUTE AUTO 0.65 K/mm3 (0.16-1.47); MONOCYTES PERCENT AUTO 5 % (4-13); Mean Corpuscular HGB 29.8 pg (26.0-34.0); Mean Corpuscular HGB Conc 33.9 g/dL (31.5-36.5); Mean Corpuscular Volume 88 fL (80-100); Mean Platelet Volume 11.3 fL (9.1-12.4); NEUTROPHILS ABSOLUTE AUTO 11.06 K/mm3 (1.96-9.15); NEUTROPHILS PERCENT AUTO 80 % (41-73); Platelet Count 190 K/mm3 (150-400); RDW Coefficient Variation 14.7 % (11.7-14.2); RDW Standard Deviation 47.2 fL (35.1-46.3); Red Blood Cell Count 2.72 M/mm3 (4.30-5.90); White Blood Cell Count 13.92 K/mm3 (4.00-11.30)
[2020-10-06 05:11] LABS: Albumin, Blood 3.1 g/dL (3.4-5.0); Anion Gap 15 mmol/L (6-16); Blood Urea Nitrogen 126 mg/dL (8-24); Bun/Creatinine Ratio 27.9 (12.0-20.0); CO2, Blood 25 mmol/L (21-32); Calcium, Blood 8.6 mg/dL (8.5-10.1); Chloride, Blood 92 mmol/L (98-108); Creatinine, Blood 4.51 mg/dL (0.60-1.20); Glomerular Filtration Rate 13 (60-); Glucose, Blood 305 mg/dL (70-99); Magnesium, Blood 2.5 mg/dL (1.6-2.4); Phosphorus, Blood 6.1 mg/dL (2.5-4.9); Potassium, Blood 3.4 mmol/L (3.5-5.5); Sodium, Blood 132 mmol/L (136-145)
--- NOTE | 2020-10-06 06:50 | NUR ---
SHIFT SUMMARY NO ACUTE CHANGES DURING NOC. REMAINS INTUBATED. FIO2 NOW 30%. PEEP STILL AT [address] CASTRO. SBT DONE THIS AM- SEE RT DOCUMENTATION. PROPOFOL BETWEEN 20-30MCG/KG/MIN DURING NOC- NOW INFUSING AT 20MCG/KG/MIN. SEDATION VACATION DONE WITH WEANING TRIAL. WITH SEDATION OFF, PT OPENED EYES SPONTANEOUSLY, BUT STILL NOT TRACKING OR FOLLOWING ANY COMMANDS. MEDICATED WITH FENTANLY 50MCG IV X 1 DURING SHIFT WHEN GRIMACING NOTED. CONTINUES WITH COPIOUS ETT SECRETIONS. ALSO HAS MODERATE ORAL SECRETIONS. VSS. OG WITH VITAL HIGH PROTEIN AT GOAL RATE OF 30CC/HR. RESIDUALS WNL. TEIXEIRA PATENT AND DRAINING CLEAR YELLOW URINE. HEPARIN CONTINUES AT 19UNITS/KG/HR (29.6CC/HR) PER PHARMACY. WILL REPORT TO ONCOMING RN WHEN AVAILABLE.
--- NOTE | 2020-10-06 08:00 | NUR ---
PT REMAINS INTUBATED, SEDATED, AND RESTRAINED. PT AGITATED, GRIMACING, COUGHING AND VENT ALARMING-PROPOFOL @ 20 MCG-TITRATED UP TO 25 MCG/KG/MIN. ALSO, MED WITH FENTANYL 50 MCG IVP X 1 FOR PAIN/SEDATION ADJUNCT. ECG SHOWS AFIB WITH BBB IN AND OUT OF SR WITH FIRST DEGREE AV BLOCK AND BBB-RATE 80-90'S. BP STABLE. PRESSORS HAVE BEEN OFF FOR APROXIMATELY 24 HOURS. TEMP 100.2 REMOVED BLANKETS AND PLACED FAN DIRECTED AT PT. LUNGS REMAIN COARSE AND DIMINISHED-MORE DIMINISHED ON THE RIGHT SIDE. ETT TO VENT: AC 14, TV 500, PEEP 8, FIO2 30% PT MAINTAINS SATS GREATER THAN 90% SUCTION CONTINUES TO BE PRODUCTIVE OF A LARGE AMOUNT OF THICK, YELLOW-GREEN SPUTUM. PT TOLERATING TF WELL-MINIMAL RESIDUAL. TEIXEIRA WITH SMALL AMOUNT OF DARK, YELLOW URINE TO UROMETER. ANTICIPATE HEMODIALYSIS EARLY THIS AFTERNOON. RIJ TRIALYSIS CATHETER SITE CLEAR-DRESSING C/D/I. RIGHT FEMORAL DRESSING C/D/I. BRUISING AND SWELLING OVER ALL SEEMS IMPROVED FROM 10/06/20.
--- NOTE | 2020-10-06 10:30 | NUR ---
DR. PIZARRO AND DR. CASTRO IN TO EVALUATE PT-UPDATED TO CURRENT VS/STATUS.DR. CASTRO TO CALL MRS. LINDO DAY 14 IS ON THE AND WILL PLAN FOR TRACH AND PEG PLACEMENT MOVING FORWARD. DR. CASTRO TO DISCUSS CONCERN FOR "BRAIN DAMAGE" DUE TO ANOXIC BRAIN INJURY- EVIDENCED BY THE FACT THAT PT HAS NOT BEEN ABLE TO FOLLOW COMMANDS AND HAS NOT DEMONSTRATED ANY PURPOSEFUL MOVEMENT SINCE HIS ARREST (09/25 X 45 MIN). PT INCONTINENT OF LARGE, BROWN, FORMED STOOL. PARTIAL BATH AND PARTIAL LINEN CHANGE COMPLETED. PT POSITIONED TO COMFORT ON RIGHT SIDE.
--- NOTE | 2020-10-06 11:59 | NUR ---
PT REMAINS INTUBATED, SEDATED, AND RESTRAINED. RESTING QUIELTLY ON VENT WHEN NOT DISTURBED-PROPOFOL @ 25 MCG/KG/MIN.OPENS EYES TO VOICE AND PAINFUL STIMULI, BUT NOT TRACKING OR FOLLOWING ANY COMMANDS. TEMP 99.6. OTHER VS WDL. MAINTAINS SATS GREATER THAN 90% ON FIO2 30% CONTINUES WITH LARGE AMOUNT OF THICK, GREEN/YELLOW SPUTUM. CONTINUES TO TOLERATE TF WELL-MINIMAL RESIDUALS. CBG 299-COVERED PER HIGH SLIDING SCALE-SEE EMAR. STILL AWAITING HEMODIALYSIS. URINE OUTPUT DECREASED FROM 10/05/20.
--- NOTE | 2020-10-06 14:00 | NUR ---
PT UNDERGOING HEMODIALYSIS-INITIATED AT 1330 TO RUN FOR 3 HOURS IF TOLERATED. TRIALYSIS CATHETER IS SOMEWHAT POSITIONAL PER RACHEL MALIN RN- SHIFTED PT HIPS, BUT DID NOT DO A COMPLETE TURN FOR THIS REASON.
--- NOTE | 2020-10-06 15:34 | NUR ---
PT RESTING QUIETLY ON VENT WHILE UNDERGOING HEMODIALYSIS. VS WDL-MAINTAINS SATS GREATER THAN 90% ON FIO2 30%. PT IN FOR BRIEF VISIT.-DISCUSSED TRACH/PEG WITH HER. PLAN FOR TRACH AND PEG PLACEMENT NEXT WEEK.
--- NOTE | 2020-10-06 17:12 | NUR ---
HEMODIALYSIS COMPLETED. 1600 CC REMOVED. PT TOLERATED WELL. PT INCONTINENT OF A LARGE AMOUNT OF SOFT, BROWN, STOOL. PARTIAL BED BATH GIVEN AND PARTIAL LINEN CHANGE COMPLETED. PT OPENED HIS EYES, BUT STILL NOT TRACKING. PT GRIMACING, COUGHING , AND ALARMING VENT-PEAK PRESSURE 35. ETT SUCTION PRODUCTIVE OF A LARGE AMOUNT OF HEMOPTYSIS. PT REMAINS ON HEPARIN GTT AND PTT HAS BEEN THERAPEUTIC-NEXT PTT IN AM. TARAS RT, AND MADE AWARE OF HEMOPTYSIS.
--- NOTE | 2020-10-06 20:00 | NUR ---
ASSUMING PT CARE: PT INTUBATED & SEDATED. VENT: AC 14/500, 8/30%. GTTs: PROPOFOL 25mcg/kg/min, HEPARIN 19u/kg/hr. PT UNABLE TO FOLLOW COMMANDS, WITHDRAWS TO PAIN, SOFT GAG, WIGGLES TOES THOUGH NO OBVIOUS INTENTIONAL MOVEMENT. BLOODY, THICK ETT SECRETIONS. VS STABLE. SEE INITIAL SHIFT ASSESSMENT FOR FULL ASSESSMENT.
[2020-10-07 04:31] LABS: BASOPHILS ABSOLUTE AUTO 0.03 K/mm3 (0.00-0.23); BASOPHILS PERCENT AUTO 0 % (0-2); EOSINOPHILS ABSOLUTE AUTO 0.39 K/mm3 (0.00-0.68); EOSINOPHILS PERCENT AUTO 3 % (0-6); Hematocrit 24.8 % (37.0-53.0); Hemoglobin 8.4 g/dL (13.5-17.5); IMMATURE GRAN ABSOLUTE AUTO 0.31 K/mm3 (0.00-0.10); IMMATURE GRAN PERCENT AUTO 3 % (0-1); LYMPHOCYTES PERCENT AUTO 6 % (21-46); MONOCYTES ABSOLUTE AUTO 0.65 K/mm3 (0.16-1.47); MONOCYTES PERCENT AUTO 6 % (4-13); Mean Corpuscular HGB 29.7 pg (26.0-34.0); Mean Corpuscular HGB Conc 33.9 g/dL (31.5-36.5); Mean Corpuscular Volume 88 fL (80-100); Mean Platelet Volume 11.5 fL (9.1-12.4); NEUTROPHILS ABSOLUTE AUTO 9.59 K/mm3 (1.96-9.15); NEUTROPHILS PERCENT AUTO 82 % (41-73); Platelet Count 214 K/mm3 (150-400); RDW Coefficient Variation 14.7 % (11.7-14.2); RDW Standard Deviation 47.2 fL (35.1-46.3); Red Blood Cell Count 2.83 M/mm3 (4.30-5.90); White Blood Cell Count 11.67 K/mm3 (4.00-11.30)
[2020-10-07 05:06] LABS: Alanine Aminotransfer (ALT/SGP 34 U/L (12-78); Albumin, Blood 2.7 g/dL (3.4-5.0); Albumin/Globulin Ratio 0.6 (0.8-1.8); Alk Phos 48 U/L (50-136); Anion Gap 10 mmol/L (6-16); Aspartate Aminotrans (AST/SGOT 43 U/L (12-37); Bilirubin, Direct 0.7 mg/dL (0.0-0.3); Bilirubin, Indirect 0.5 mg/dL (0.1-0.7); Bilirubin, Total 1.2 mg/dL (0.1-1.0); Blood Urea Nitrogen 93 mg/dL (8-24); Bun/Creatinine Ratio 26.2 (12.0-20.0); CO2, Blood 28 mmol/L (21-32); Calcium, Blood 8.9 mg/dL (8.5-10.1); Chloride, Blood 96 mmol/L (98-108); Creatinine, Blood 3.55 mg/dL (0.60-1.20); Globulin, Blood 4.3 g/dL (2.2-4.0); Glomerular Filtration Rate 18 (60-); Glucose, Blood 249 mg/dL (70-99); Magnesium, Blood 2.4 mg/dL (1.6-2.4); Phosphorus, Blood 4.9 mg/dL (2.5-4.9); Potassium, Blood 3.6 mmol/L (3.5-5.5); Sodium, Blood 134 mmol/L (136-145)
--- NOTE | 2020-10-07 05:30 | NUR ---
UPDATE: AFIB. SEDATION SLOWLY TITRATED DOWN THROUGHOUT THE NIGHT W/ NO IMPROVEMENT TO NEURO STATUS. UNABLE TO FOLLOW COMMANDS, DOES NOT OPEN EYES, NO WITHDRAWAL W/ ORAL CARE, ONLY VERY SUBTLE GAG W/ DEEP SUCTIONING. PROPOFOL NOW 12mcg/kg/min. W/ REPOSITIONING & ETT SUCTION PT NOW OPENS EYES, DOES NOT TRACK, CORNEAL REFLEX ONLY INTERMITTENT. NO MOVEMENT OF EXTREMITIES OR HEAD. MOVING MOUTH & LIPS. MONITOR INDICATES MORE FREQUENT RUNS OF AFIB W/ INCREASING RATE, NOW 150s-88s. SBP INCREASING. SEDATION INC FOR PT COMFORT & NOW APPEARS MORE COMFORTABLE.
--- NOTE | 2020-10-07 06:59 | NUR ---
SHIFT SUMMARY: PT REMAINS INTUBATED & SEDATED. VENT: 14/500, 8/30%. GTTs: PROPOFOL 20mcg/kg/min, HEPARIN 20u/kg/min. SEDATION TITRATED DOWN VERY SLOWLY T/O THE NIGHT, EVENTUALLY TOLERATING PROPOFOL @ 12mcg FOR APPROX 2hrs BEFORE HE WAS ABLE TO OPEN HIS EYES. UNABLE TO TRACK. SLUGGISH CORNEAL REFLEX. NO EXTREMITY MOVEMENT OBSERVED, PT UNABLE TO FOLLOW COMMANDS. PT WAS SOON UNABLE TO TOLERATE ETT & ORAL SECRETIONS. HE BEGAN TO HAVE RUNS OF AFIB W/ HR INC TO 150s. AFTER SEDATION WAS AGAIN INCREASED, PT RETURNED TO SR. WILL DISCUSS SEDATION ALTERNATIVE W/ MORNING RN PROPOFOL APPEARS TO HAVE A LINGERING EFFECT ON THIS PT, MAKING NEURO STATUS DIFFICULT TO FULLY ASSESS. UPDATED PT'S , WHO STS SHE WISHES THE PT TO BE A DNR @ THIS TIME. SHE WILL COME IN TODAY TO DISCUSS THIS PLAN W/ DR CASTRO.
--- NOTE | 2020-10-07 08:42 | NUR ---
CARE ASSUMED ASSESSMENTS COMPLETED. PT REMAINS INTUBATED, SEDATED WITH PROPOFOL 20MCG/KG/MIN, OPENS EYES TO NOXIOUS STIMULI, DOES NOT TRACK OR FOLLOW COMMANDS, MOVEMENT NOTED IN LE'S ONLY. VENT AC 14, Vt 500, FIO2 30%, PEEP 8. RR 14, SPO2 96%. LS COARSE ON R, DIM ON L, MODERATE AMOUNT GRIJALVA SECRETIONS FROM ETT, NO BLOOD NOTED IN SECRETIONS AT THIS TIME. HRR, 70'S SINUS WITH BBB. HEPARIN INFUSING AT 20U/KG/HR. ABD MODERATELY DISTENDED, MILDLY FIRM, BT PRESENT. TF VHP AT GOAL 30ML/HR WITH FLUSHES, RESIDUAL 5ML. BRUISING TO BILATERAL FLANKS AND GROIN REMAIN PRESENT. BUE'S EDEMATOUS, PULSES IN ALL EXTREMS BY DOPPLER ONLY. BILAT GROIN ACCESS SITES WITH ALGINATE AND WINDOW DRESSINGS CDI. TEIXEIRA WITH SCANT DARK YELLOW URINE, PT SCHEDULED FOR DIALYSIS TODAY. DR. DURON IN TO ASSESS, NO NEW ORDERS AT THIS TIME.
--- NOTE | 2020-10-07 08:59 | NUR ---
SEDATION VACATION PROPOFOL OFF. VENT SETTINGS CHANGED BY DR. DURON TO PS 15/8, FIO2 30%. RR 17, Vt 450, SPO2 MID 90'S. PT RESTING WITH EYES CLOSED, WILL CONTINUE TO MONITOR.
--- NOTE | 2020-10-07 10:00 | NUR ---
UPDATE PT APPEARS TO BE HAVING TARA RICHARD RESPIRATIORY PATTERN, DR. DURON NOTIFIED. PS DECREASED TO 10/8 WITH 30% FIO2. Vt 350, RESPIRATORY PAUSES APPEAR TO BE SHORTER BUT PATTERN IS UNCHANGED. URINE OUTPUT REMAINS SCANT.
[2020-10-07 11:32] LABS: Vancomycin, Random 20.7 ug/mL
--- NOTE | 2020-10-07 12:12 | NUR ---
UPDATE PT'S RESPIRATORY PATTERN HAS BECOME REGULAR, RATE 20'S, NO PAUSES, VENT REMAINS ON PS 10/8, FIO2 30%. Vt 350, SPO2 >95%. LS HAVE CLEARED, NO BLOOD NOTED IN SPUTUM TODAY. PROPOFOL OFF, PT OPENS EYES TO VOICE, TRACKS, DOES NOT FOLLOW COMMANDS, IS CALM AND QUIET. URINE OUTPUT REMAINS SCANT. PLAN TO MINIMIZE SEDATION AND CONTINUE PS LONG PATIENT TOLERATES.
--- NOTE | 2020-10-07 14:37 | NUR ---
UPDATE SEDATION REMAINS OFF, PT ON SPONT MODE, SETTINGS UNCHANGED, CONTINUES TO TOELRATE WELL WITHOUT IRREGULAR BREATHING PATTERNS. PT ABLE TO FOLLOW SOME COMMANDS AT THIS TIME, TRACKS MOVEMENTS, DOES NOT ANSWER YES/NO. AT BEDSIDE, DR. ZAPIEN AND [facility] IN TO SPEAK WITH REGARDING PLAN OF CARE, WILL HAVE DR. DURON SPEAK WITH WHEN HE IS AVAILABLE. VERBALIZES WISHES FOR DNR STATUS, DOES NOT WANT TRACH/PEG BUT WOULD LIKE TO LEAVE PT INTUBATED UNTIL CHILDREN CAN GET HERE ON WEDNESDAY AND SEE PT BEFORE EXTUBATION.
--- NOTE | 2020-10-07 15:59 | NUR ---
Spiritual care visit conducted. Patient's spouse, Kathy is bedside. She tells me that she has family traveling here from [place] and that she does not want to make a major decision until they arrive. She does admit that the patient would not want to be intubated and would struggle horribly if a scenario played out where he had limited muscle control or was bedbound. Kathy shares her concerns about her future without him. I help her think about what Garrett's wishes might be in this situation and attempt to help her process what the doctors are telling her. I normalize her experience, and provide therapeutic listening and prayer. Kathy responds well and continues work through the decisions in front of her. Spiritual care will continue to remain available to patient and family.
--- NOTE | 2020-10-07 17:12 | NUR ---
UPDATE PT MEDICATED WITH FENTANYL FOR RR 30'S AND HR 100-105, HR NOW 90'S, PT REMAINS TACHYPNEIC, Vt DECREASED TO 250. RT NOTIFIED, PROPOFOL RESUMED AT 10MCG, VENT SETTINGS BACK TO AC 14, Vt 500, PEEP 8, FIO2 30%. PT'S RR NOW 17, SPO2 MID 90'S. LS COARSE T/O, THICK GRIJALVA SPUTUM FROM ETT, LARGE AMOUNT OF BLOOD TINGED ORAL SECRETIONS TODAY. PT REMAINED MODERATELY RESPONSIVE WITHOUT SEDATION, OPENS EYES TO VOICE, TRACKS, WILL INCONSISTENTLY SQUEEZE WITH R HAND, DOES NOT FOLLOW OTHER DIRECTIONS OR ANSWER QUESTIONS. BP REMAINS STABLE, HR SINUS WITH BBB AND PVC'S. ABD DISTENDED, SLIGHTLY FIRM, PT HAVING PASTY BROWN STOOLS, BRUISING TO FLANKS AND GROIN REMAIN PRESENT, APPEAR TO BE DECREASING IN SIZE PER PREVIOUS OUTLINE. ALGINATE AND WINDOW DRESSINGS TO BILAT GROIN CDI. DRESSING TO R IJ DIALYSIS CATH CHANGED, NO SUTURES PRESENT, SECUREMENT DEVICE PLACED. RUE REMAINS BRUISED AND EDEMATOUS, DR. CASPER. IN THIS AFTERNOON TO VISIT, ATTEMPTED TO DISCUSS NEED TO CONSIDER DECISIONS REGARDING TRACH AND PEG VS. EXTUBATION TO COMFORT, INSISTING ON "BRAIN FUNCTION TEST" TO DETERMIN WHETHER THE PT WILL BE "A VEGETABLE" OR NOT. THIS RN ATTEMPTED TO EXPLAIN INDICATIONS OF EEG, UNRECEPTIVE STATING SHE WILL SPEAK WITH THE DOCTOR TOMORROW REGARDING TEST. AWAITING MULTIPLE ADULT CHILDREN TO ARRIVE FROM OUT OF STATE BETWEEN THIS WEDNESDAY AND EARLY NEXT WEEK BEFORE SHE MAKES DECISIONS REGARDING PT CARE.
--- NOTE | 2020-10-07 18:15 | NUR ---
END OF SHIFT PT TOLERATING VENT SETTINGS AC 14, VT 500, PEEP 8, FIO2 30% WELL WITH PROPOFOL 10MCG. RR 14, SPO2 >95%, PT RESTING WITH EYES CLOSED, NO RESTLESSNESS OR AGITATION NOTED. HR 90, BP STABLE. HEPARIN GTT REMAINED 20U/KG/HR ALL SHIFT.
[2020-10-08 03:37] LABS: BASOPHILS ABSOLUTE AUTO 0.02 K/mm3 (0.00-0.23); BASOPHILS PERCENT AUTO 0 % (0-2); EOSINOPHILS ABSOLUTE AUTO 0.35 K/mm3 (0.00-0.68); EOSINOPHILS PERCENT AUTO 3 % (0-6); Hemoglobin 8.1 g/dL (13.5-17.5); IMMATURE GRAN ABSOLUTE AUTO 0.44 K/mm3 (0.00-0.10); IMMATURE GRAN PERCENT AUTO 4 % (0-1); LYMPHOCYTES ABSOLUTE AUTO 0.91 K/mm3 (0.84-5.20); LYMPHOCYTES PERCENT AUTO 8 % (21-46); MONOCYTES ABSOLUTE AUTO 0.72 K/mm3 (0.16-1.47); MONOCYTES PERCENT AUTO 7 % (4-13); Mean Corpuscular HGB 29.7 pg (26.0-34.0); Mean Corpuscular HGB Conc 33.8 g/dL (31.5-36.5); Mean Corpuscular Volume 88 fL (80-100); Mean Platelet Volume 11.6 fL (9.1-12.4); NEUTROPHILS ABSOLUTE AUTO 8.56 K/mm3 (1.96-9.15); NEUTROPHILS PERCENT AUTO 78 % (41-73); Platelet Count 242 K/mm3 (150-400); RDW Coefficient Variation 14.7 % (11.7-14.2); RDW Standard Deviation 46.9 fL (35.1-46.3); Red Blood Cell Count 2.73 M/mm3 (4.30-5.90)
[2020-10-08 04:05] LABS: Albumin, Blood 2.4 g/dL (3.4-5.0); Anion Gap 12 mmol/L (6-16); Blood Urea Nitrogen 122 mg/dL (8-24); Bun/Creatinine Ratio 28.2 (12.0-20.0); CO2, Blood 25 mmol/L (21-32); Calcium, Blood 8.8 mg/dL (8.5-10.1); Chloride, Blood 97 mmol/L (98-108); Creatinine, Blood 4.33 mg/dL (0.60-1.20); Glomerular Filtration Rate 14 (60-); Glucose, Blood 234 mg/dL (70-99); Magnesium, Blood 2.4 mg/dL (1.6-2.4); Phosphorus, Blood 5.4 mg/dL (2.5-4.9); Potassium, Blood 3.7 mmol/L (3.5-5.5); Sodium, Blood 134 mmol/L (136-145)
--- NOTE | 2020-10-08 05:12 | NUR ---
UPDATE: FAMILY PHONE CALL PT's CALLS FOR AN UPDATE ON PT STATUS. UPDATED ON EVENTS THROUGHOUT THE EVENING & PT'S NEURO IMPROVEMENTS. PT'S EXPRESSES HER GRATITUDE W/ THE CARE HER HAS RECEIVED HERE. SHE BELIEVES HER CHILDREN WILL BE ABLE TO VISIT THIS WEDNESDAY BUT THEY MAY BE HERE SOONER THEY ARE DRIVING FROM THE [facility]. SHE IS UNSURE ABOUT THE POSSIBILITY OF TRACH & PEG & IS ANTICIPATING SPEAKING MORE ABOUT THIS & THE PT's PROGNOSIS W/ DR DURON THIS AFTERNOON WHEN SHE IS ABLE TO VISIT.
--- NOTE | 2020-10-08 06:23 | NUR ---
SHIFT SUMMARY: PT REMAINS INTUBATED & SEDATED. VENT: AC 14/500, 8/30%. GTTs: PROPOFOL 8mcg/kg/min. SEDATION HAS BEEN TITRATED DOWN T/O THE NIGHT W/ IMPROVING NEURO STATUS. OPENS EYES SPONTANEOUSLY, THOUGH NOT TO VERBAL. VERY LIGHTLY PULLS @ RESTRAINTS & TURNS HEAD FROM SIDE TO SIDE. UNABLE TO FOLLOW COMMANDS. IN SPEAKING W/ HIS , SHE STS HE IS VERY VERY HARD OF HEARING. COPIOUS ORAL SECRETIONS CONTINUE, REQUIRING FREQUENT SUCTIONING, NO RETURN OF HEMOPTYSIS. EDEMA IMPROVING. 110cc URINE OUTPUT. PER CURRY's NOTE, PT WILL HAVE DIALYSIS TODAY. WILL ARRIVE THIS AFTERNOON TO DISCUSS PLAN OF CARE W/ DR DURON.
[2020-10-08 06:45] LABS: PCO2 Arterial 33.2 mmHg (35-45); PO2 Arterial 79.7 mmHg (80-100); pH Blood Arterial 7.47 (7.35-7.45)
--- NOTE | 2020-10-08 09:19 | NUR ---
CARE ASSUMED ASSESSMENTS COMPLETED, PT REMAINS SEDATED WITH PROPOFOL 8MCG, VENT SETTINGS AC 14, Vt 500, FIOW 30%, PEEP 8. RR 14, SPO2 97%. PT RESTING, OPENS EYES OCCASIONALLY TO NOXIOUS STIMULI BUT DOES NOT FOLLOW DIRECTIONS, TRACK, OR ANSWER QUESTIONS. NO MOVEMENT NOTED IN EXTREMS AT THIS TIME, PT DOES TURN HEAD AWAY FROM ORAL CARE. HR 90'S IRREGULAR SINUS WITH BBB, BP STABLE, MIDODRINE HELD. MAP 80'S. LS DIMINISHED WITH EXPIRATORY WHEEZES, MODERATE ETT SECRETIONS, LARGE AMOUNT OF ORAL SECRETIONS, NO OBVIOUS BLOOD PRESENT IN EITHER. ABD DISTENDED, SOFT, SMALL BM. VHP INFUSING AT GOAL 30ML/HR. TEIXEIRA WITH SCANT DARK OUTPUT, PLANNING FOR DIALYSIS TODAY. BRUISING TO FLANKS AND GROIN PRESENT, FADING. IN TO ASSESS, AWARE OF LACK OF SUTURES IN DIALYSIS CATH. 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
--- NOTE | 2020-10-08 11:58 | NUR ---
UPDATE PROPOFOL OFF AT THIS TIME FOR SEDATION VACATION. VENT SETTINGS UNCHANGED. DR. DURON SPOKE TO PT'S THIS MORNING, PLAN TO CONTINUE CARE UNTIL PT'S CHILDREN ARRIVE AND CAN ASSIST IN MAKING DECISIONS. DR. DURON ASSESSED DIALYSIS CATH, HEPARIN SHUT OFF THIS AM AT 0930 IN PREPARATION FOR REPLACEMENT, PHARMACY NOTIFIED.
--- NOTE | 2020-10-08 17:42 | NUR ---
UPDATE DIALYSIS CATH PLACED THIS AFTERNOON BY DR. DURON WITHOUT DIFFICULTY, PLACEMENT CONFIRMED WITH XRAY, PT THEN RECEIVED DIALYSIS. HEPARIN RESUMED, PHARMACY NOTIFIED. PT PLACED ON PRESSURE SUPPORT THIS AFTERNOON WITHOUT SEDATION, WAS CHANGED BACK TO AC WITH PREVIOUS SETTINGS AFTER A COUPLE HOURS FOR HIGH RR AND LOW Vt. RATE DECREASED WITH AC MODE AND PT APPEARS TO BE RESTING COMFORTABLY WITHOUT S/SX DISTRESS. NEURO STATUS UNCHANGED T/O SHIFT, PT'S EYES ARE OPEN WITHOUT TRACKING, DOES NOT FOLLOW COMMANDS. PT CONTINUES TO HAVE SMALL BM'S AND LOW URINE OUTPUT. IN TO VISIT, PLANNING TO EXTUBATE TO COMFORT CARE AFTER PT'S CHILDREN HAVE BEEN IN TO VISIT, LIKELY EARLY NEXT WEEK.
--- NOTE | 2020-10-08 19:00 | NUR ---
ASSUMED CARE ASSUMED CARE OF PATIENT. REMAINS INTUBATED- AC 14, TV 500, PEEP 8, FIO2 30%. RR 14-16. CONTINUES WITH MODERATE TO COPIOUS AMOUNTS OF THICK GRIJALVA SECRETIONS PER ETT. ALSO HAS COPIOUS ORAL SECRETIONS. SEDATED WITH PROPOFOL AT 20MCG/KG/MIN. OPENS EYES TO VERBAL STIMULI, BUT NOT TRACKING WITH EYES. MINIMAL GROSS MOTOR MOVEMENT NOTED IN LEs IN RESPONSE TO NOXIOUS STIMULI. MONITOR SHOWS OCCASIONAL AFIB AND THEN SR. RATE 90s-100s. BP STABLE. OG WITH VITAL HIGH PROTEIN AT GOAL RATE OF 30CC/HR. TEIXEIRA PATENT AND DRAINING SMALL AMOUNTS OF DARK YELLOW URINE. HEPARIN INFUSING AT 21UNITS/KG/HR PER PHARMACY. SEE SHIFT ASSESSMENT FOR FULL ASSESSMENT.
--- NOTE | 2020-10-08 19:16 | NUR ---
END OF SHIFT. DIALYSIS FINISHED AT 1900, PT REPOSITIONED. PT COUGHING FREQUENTLY DESPITE ETT AND ORAL SUCTIONING, PROPOFOL RESUMED, CURRENTLY AT 20MCG. VENT REMAINS AC, SETTINGS UNCHANGED. RR 23, SPO2 98%. HEPARIN 21U/KG/HR. REPORT GIVEN.
[2020-10-08 19:25] LABS: Vancomycin, Random 12.9 ug/mL
[2020-10-09 05:18] LABS: BASOPHILS ABSOLUTE AUTO 0.03 K/mm3 (0.00-0.23); BASOPHILS PERCENT AUTO 0 % (0-2); EOSINOPHILS ABSOLUTE AUTO 0.23 K/mm3 (0.00-0.68); EOSINOPHILS PERCENT AUTO 3 % (0-6); Hematocrit 23.1 % (37.0-53.0); Hemoglobin 7.7 g/dL (13.5-17.5); IMMATURE GRAN PERCENT AUTO 5 % (0-1); LYMPHOCYTES ABSOLUTE AUTO 0.95 K/mm3 (0.84-5.20); LYMPHOCYTES PERCENT AUTO 11 % (21-46); MONOCYTES ABSOLUTE AUTO 0.71 K/mm3 (0.16-1.47); MONOCYTES PERCENT AUTO 8 % (4-13); Mean Corpuscular HGB 29.5 pg (26.0-34.0); Mean Corpuscular HGB Conc 33.3 g/dL (31.5-36.5); Mean Corpuscular Volume 89 fL (80-100); Mean Platelet Volume 11.3 fL (9.1-12.4); NEUTROPHILS ABSOLUTE AUTO 6.42 K/mm3 (1.96-9.15); NEUTROPHILS PERCENT AUTO 74 % (41-73); Platelet Count 249 K/mm3 (150-400); RDW Coefficient Variation 14.6 % (11.7-14.2); RDW Standard Deviation 46.8 fL (35.1-46.3); Red Blood Cell Count 2.61 M/mm3 (4.30-5.90); White Blood Cell Count 8.74 K/mm3 (4.00-11.30)
[2020-10-09 05:54] LABS: Albumin, Blood 2.2 g/dL (3.4-5.0); Albumin/Globulin Ratio 0.5 (0.8-1.8); Bilirubin, Direct 0.6 mg/dL (0.0-0.3); Bilirubin, Indirect 0.4 mg/dL (0.1-0.7); Bun/Creatinine Ratio 26.6 (12.0-20.0); Calcium, Blood 8.7 mg/dL (8.5-10.1); Creatinine, Blood 3.46 mg/dL (0.60-1.20); Globulin, Blood 4.4 g/dL (2.2-4.0); Magnesium, Blood 2.3 mg/dL (1.6-2.4); Phosphorus, Blood 4.6 mg/dL (2.5-4.9); Potassium, Blood 3.7 mmol/L (3.5-5.5); Total Protein, Blood 6.6 g/dL (6.4-8.2)
--- NOTE | 2020-10-09 06:15 | NUR ---
SHIFT SUMMARY NO ACUTE CHANGES DURING SHIFT. REMAINS INTUBATED- AC 14, TV 500, PEEP 8, FIO2 30%. CONTINUES WITH MODERATE TO COPIOUS ETT AND ORAL SECRETIONS. SEDATED WITH PROPOFOL AT 20MCG/KG/MIN. OPENS EYES TO STIMULI. MINIMAL SPONTANEOUS MOVEMENT NOTED IN TOES AT TIMES. NOT FOLLOWING ANY COMMANDS. BILATERAL SOFT WRIST RESTRAINTS REMAIN IN PLACE. OG WITH VITAL HIGH PROTEIN AT GOAL RATE OF 30CC/HR. RESIDUALS 0-30CC. TEIXEIRA PATENT- ONLY 100CC DARK YELLOW URINE T/O SHIFT. INCONTINENT OF SOFT STOOL X 2. HEPARIN INFUSING AT 21UNITS/KG/HR PER PHARMACY. LEVY PICC LINE PATENT. [facility] AND [facility] HD CATHETERS INTACT. WILL REPORT TO ONCOMING RN WHEN AVAILABLE.
--- NOTE | 2020-10-09 10:59 | NUR ---
CARE ASSUMED OF PT AT 0700 THIS AM. PT SEDATED ON PROPOFOL AT 20MCG FOR [facility]. PROPOFOL TURNED OFF THIS AM AROUND 0900. PT OPENS EYES AND MOVES TOES. DOES NOT NOD HEAD TO QUESTIONS OR FOLLOW SIMPLE COMMANDS. DR DURON IN THIS AM, UPDATE GIVEN. DR DURON PLACED PT ON PS 12/ THIS AM AT 1045. HEPARIN GTT AT 21UNITS.
--- NOTE | 2020-10-09 12:31 | NUR ---
PT GIVEN BEDBATH. SKIN BREAKDOWN TO GROIN/INNER THIGHS 2ND TO YEAST. NYSTATIN POWDER ORDERED AND APPLIED. BLISTER NOTED TO R BUTTOCK/THIGH AREA. [facility] HD DC'D PER DR DURON FOLLOWING HOSP POLICY AND PROCEDURE. PT'S TV FELL 180-240, PT PLACED BACK ON AC FOR NOW. SEDATION REMAINS OFF. PT APPEARS TO LOOK AT SPEAKER BUT DOES NOT FOLLOW ANY COMMANDS. GRIMACES OFTEN. COPIOUS AMTS OF SPUTUM SX'D FROM ETT.
--- NOTE | 2020-10-09 15:58 | NUR ---
Spiritual care visit conducted. Kathy is bedside. We discuss extubation, quality of life and risk verses benefit. I provide therapeutic listening and prayer. Kathy believes that she will request extubation when her kids all arrive. Spiritual care will remain available.
[2020-10-09 16:20] LABS: BASOPHILS ABSOLUTE AUTO 0.03 K/mm3 (0.00-0.23); BASOPHILS PERCENT AUTO 0 % (0-2); EOSINOPHILS ABSOLUTE AUTO 0.23 K/mm3 (0.00-0.68); EOSINOPHILS PERCENT AUTO 3 % (0-6); Hematocrit 23.1 % (37.0-53.0); Hemoglobin 7.8 g/dL (13.5-17.5); IMMATURE GRAN ABSOLUTE AUTO 0.42 K/mm3 (0.00-0.10); IMMATURE GRAN PERCENT AUTO 5 % (0-1); LYMPHOCYTES ABSOLUTE AUTO 0.97 K/mm3 (0.84-5.20); LYMPHOCYTES PERCENT AUTO 10 % (21-46); MONOCYTES ABSOLUTE AUTO 0.83 K/mm3 (0.16-1.47); MONOCYTES PERCENT AUTO 9 % (4-13); Mean Corpuscular HGB 29.5 pg (26.0-34.0); Mean Corpuscular HGB Conc 33.8 g/dL (31.5-36.5); Mean Corpuscular Volume 88 fL (80-100); Mean Platelet Volume 11.1 fL (9.1-12.4); NEUTROPHILS ABSOLUTE AUTO 6.81 K/mm3 (1.96-9.15); NEUTROPHILS PERCENT AUTO 73 % (41-73); Platelet Count 255 K/mm3 (150-400); RDW Coefficient Variation 14.6 % (11.7-14.2); Red Blood Cell Count 2.64 M/mm3 (4.30-5.90); White Blood Cell Count 9.29 K/mm3 (4.00-11.30)
--- NOTE | 2020-10-09 18:30 | NUR ---
PT REMAINS ON AC SETTINGS. SEDATION HAS BEEN OFF SINCE THIS AM. PT MUCH MORE AWAKE AND TRACKS W EYES BUT DOES NOT FOLLOW DIRECTIONS. MORE MOVEMENT NOTED OF LOWER EXTREMITIES, SLIGHT MOVEMENT NOTED OF ARM/HANDS. PT TOLERATING TUBE FEDS, W ONE LIQUID BM. HEPARIN GTT WAS INCREASED TO 22UNITS/KG/HR PER PHARMACY.
--- NOTE | 2020-10-09 19:00 | NUR ---
ASSUMED CARE ASSUMED CARE OF PATIENT. REMAINS INTUBATED- AC 14, TV 500, PEEP 5, FIO2 30%. RR 14-18. OPENS EYES TO VERBAL STIMULI. APPEARS TO TRACK AT TIMES. MINIMAL SPONTANEOUS MOVEMENT NOTED IN EXTREMITIES AND HEAD. NOT FOLLOWING ANY COMMANDS. BILATERAL SOFT WRIST RESTRAINTS IN PLACE TO PREVENT SELF-EXTUBATION. MONITOR SHOWS NSR, RATE 90s. BP STABLE. OG WITH VITAL HIGH PROTEIN AT 30CC/HR (GOAL RATE). TEIXEIRA PATENT AND DRAINING YELLOW URINE. HEPARIN INFUSING AT 22UNITS/KG/HR PER PHARMACY. PTT SCHEDULED FOR 1999. SEE SHIFT ASSESSMENT FOR FULL ASSESSMENT.
[2020-10-10 04:45] LABS: BASOPHILS ABSOLUTE AUTO 0.03 K/mm3 (0.00-0.23); BASOPHILS PERCENT AUTO 0 % (0-2); EOSINOPHILS ABSOLUTE AUTO 0.23 K/mm3 (0.00-0.68); EOSINOPHILS PERCENT AUTO 3 % (0-6); Hemoglobin 7.9 g/dL (13.5-17.5); IMMATURE GRAN ABSOLUTE AUTO 0.46 K/mm3 (0.00-0.10); IMMATURE GRAN PERCENT AUTO 5 % (0-1); LYMPHOCYTES ABSOLUTE AUTO 0.91 K/mm3 (0.84-5.20); LYMPHOCYTES PERCENT AUTO 10 % (21-46); MONOCYTES ABSOLUTE AUTO 0.68 K/mm3 (0.16-1.47); MONOCYTES PERCENT AUTO 7 % (4-13); Mean Corpuscular HGB 30.3 pg (26.0-34.0); Mean Corpuscular HGB Conc 34.3 g/dL (31.5-36.5); Mean Corpuscular Volume 88 fL (80-100); Mean Platelet Volume 11.3 fL (9.1-12.4); NEUTROPHILS ABSOLUTE AUTO 6.92 K/mm3 (1.96-9.15); NEUTROPHILS PERCENT AUTO 75 % (41-73); Platelet Count 257 K/mm3 (150-400); RDW Coefficient Variation 14.6 % (11.7-14.2); RDW Standard Deviation 46.6 fL (35.1-46.3); Red Blood Cell Count 2.61 M/mm3 (4.30-5.90); White Blood Cell Count 9.23 K/mm3 (4.00-11.30)
[2020-10-10 05:02] LABS: Albumin, Blood 2.1 g/dL (3.4-5.0); Anion Gap 14 mmol/L (6-16); Blood Urea Nitrogen 121 mg/dL (8-24); Bun/Creatinine Ratio 27.1 (12.0-20.0); CO2, Blood 24 mmol/L (21-32); Calcium, Blood 8.7 mg/dL (8.5-10.1); Chloride, Blood 92 mmol/L (98-108); Creatinine, Blood 4.47 mg/dL (0.60-1.20); Glomerular Filtration Rate 14 (60-); Glucose, Blood 204 mg/dL (70-99); Magnesium, Blood 2.3 mg/dL (1.6-2.4); Phosphorus, Blood 6.2 mg/dL (2.5-4.9); Sodium, Blood 130 mmol/L (136-145)
--- NOTE | 2020-10-10 06:24 | NUR ---
SHIFT SUMMARY NO ACUTE CHANGES DURING NOC. REMAINS INTUBATED WITH SAME VENT SETTINGS. CONTINUES WITH FREQUENT ORAL AND ETT SECRETIONS. MEDICATED WITH FENTANYL 25MCG IV X 2 DOSES FOR NOTED FACIAL GRIMACING. PT IS TEARFUL AT TIMES. CONTINUES TO OPEN EYES TO VERBAL STIMULI. APPEARS TO TRACK OCCASIONALLY. STILL NOT FOLLOWING ANY COMMANDS. VSS T/O SHIFT. OG WITH VITAL HIGH PROTEIN AT GOAL RATE OF 30CC/HR. RESIDUALS 0-20CC. INCONTINENT OF LOOSE BROWN STOOL X 2. TEIXEIRA PATENT AND DRAINING YELLOW URINE. HEPARIN CONTINUES AT 23UNITS/KG/HR PER PHARMACY. [facility] DIALYSIS CATHETER WITH DRSG D/I. LEVY PICC PATENT. WILL REPORT TO ONCOMING RN WHEN AVAILABLE.
--- NOTE | 2020-10-10 08:47 | NUR ---
CARE ASSUMED OF PT AT 0700. PT IS ON MECH VENT W/O SEDATION. PT SLEEPING, OPENS EYES SPONT, OPENS EYES TO VOICE AND TRACKS W EYES. PT DOES NOT FOLLOW ANY COMMANDS. NO MOVEMENT TO UPPER EXTREMITIES, WIGGLES TOES OCCASIONALLY. PT TEARS UP W CARE, PT RESISTANT TO ORAL CARE. PT GRIMACES OFTEN. PT W COPIOUS AMTS OF MODERATELY THICK YELLOW TO CLEAR ETT SECRETIONS. HEPARIN GTT AT 23UNITS/KG/HR FOR MECH VALVE. BP SLIGHTLY HYPOTENSIVE W MAP >65. PT SINUS RHTHYM IN 90'S. 99.0 TEMP VIA TEIXEIRA CATH TEMP PROBE. PT TO HAVE HD TODAY AROUND 1300.
--- NOTE | 2020-10-10 09:46 | NUR ---
DR DURON IN TO SEE PT. RESTRAINTS REMOVED FROM PT THIS AM PT HAS NO SPONT MOVEMENT OF ARMS.
--- NOTE | 2020-10-10 12:41 | NUR ---
GROSS MOVEMENT (SMALL) NOTED TO LEFT ARM. PT STILL UNABLE TO FOLLOW ANY COMMANDS. NO PURPOSEFUL MOVEMENT NOTED OTHAR THAN TRACKING W EYES AND RESISTING ORAL CARE. PTT DRAWN AND SENT. RESIDUALS 0. NO OTHER CHANGES.
--- NOTE | 2020-10-10 14:06 | NUR ---
TEIXEIRA CATH DC'D, PT SBA TO CHAIR. R GROIN REMAINS STABLE. CIRC CHECK TO BLE UNCHANGED. LEFT QUAD MUSCLE REMAINS SWOLLEN/HARD BUT UNCHANGED. PT DENIES PAIN THAT IS WORSE. PT DID HAVE SOME DIFFICULTY BEARING WEIGHT ON LEFT LEG.
--- NOTE | 2020-10-10 14:19 | NUR ---
HD IN PROGRESS. HEPARIN GTT INCREASED TO 25UNITS/KG/HR PER PHARMACY.
--- NOTE | 2020-10-10 14:24 | NUR ---
TUBE FEED RATE INCREASED TO 50CC/HR PER DIETARY.
--- NOTE | 2020-10-10 16:09 | NUR ---
PT'S RHTHYM CHANGED TO PROX AFIB W RATE 90-110 ABOUT 15MIN INTO DIALYSIS. PT HAD 12 BEAT RUN OF VT DURING HD AT 1600. IF ECTOPY CONTINUES, MAY STOP HD. BP STABLE. PT'S AT BEDSIDE AND UPDATED.
--- NOTE | 2020-10-10 17:10 | NUR ---
SCLERA OF RIGHT EYE RED, TWO SMALL STYES NOTED TO RIGHT INNER UPPER LASH LINE. WARM CLOTH APPLIED. HD COMPLETE, PT REMAINS IN AFIB W CONTROLLED RATE 90-110
[2020-10-10 17:12] LABS: Vancomycin, Random 17.4 ug/mL
--- NOTE | 2020-10-10 18:08 | NUR ---
PT W INCREASED PVC'S, R ON T. LABS DRAWN, DR DURON PAGED AND AT BEDSIDE SHORTLY AFTER. AWAITING LAB RESULTS.
[2020-10-10 18:57] LABS: Bun/Creatinine Ratio 24.1 (12.0-20.0); Calcium, Blood 8.1 mg/dL (8.5-10.1); Creatinine, Blood 2.61 mg/dL (0.60-1.20); Magnesium, Blood 1.8 mg/dL (1.6-2.4); Potassium, Blood 3.4 mmol/L (3.5-5.5)
--- NOTE | 2020-10-10 19:00 | NUR ---
ASSUMED CARE ASSUMED CARE OF PATIENT. REMAINS INTUBATED- AC 14, TV 500, PEEP 5, FIO2 30%. RR 14-18. OPENS EYES TO VERBAL STIMULI. APPEARS TO TRACK AT TIMES. MINIMAL SPONTANEOUS MOVEMENT NOTED IN EXTREMITIES AND HEAD. NOT FOLLOWING ANY COMMANDS. MONITOR SHOWS ST, RATE 100-110s. BP STABLE. OG WITH VITAL HIGH PROTEIN AT 50CC/HR (GOAL RATE). TEIXEIRA PATENT AND DRAINING YELLOW URINE. HEPARIN INFUSING AT 25UNITS/KG/HR PER PHARMACY. PTT SCHEDULED FOR 1999. LEVY PICC PATENT. [facility] HEMODIALYSIS CATHETER WITH DRSG INTACT. SEE SHIFT ASSESSMENT FOR FULL ASSESSMENT.
[2020-10-11 05:06] LABS: BASOPHILS ABSOLUTE AUTO 0.03 K/mm3 (0.00-0.23); BASOPHILS PERCENT AUTO 0 % (0-2); EOSINOPHILS ABSOLUTE AUTO 0.14 K/mm3 (0.00-0.68); EOSINOPHILS PERCENT AUTO 2 % (0-6); Hematocrit 22.9 % (37.0-53.0); Hemoglobin 7.7 g/dL (13.5-17.5); IMMATURE GRAN ABSOLUTE AUTO 0.44 K/mm3 (0.00-0.10); IMMATURE GRAN PERCENT AUTO 5 % (0-1); LYMPHOCYTES ABSOLUTE AUTO 0.77 K/mm3 (0.84-5.20); LYMPHOCYTES PERCENT AUTO 9 % (21-46); MONOCYTES ABSOLUTE AUTO 0.71 K/mm3 (0.16-1.47); MONOCYTES PERCENT AUTO 8 % (4-13); Mean Corpuscular HGB 29.7 pg (26.0-34.0); Mean Corpuscular HGB Conc 33.6 g/dL (31.5-36.5); Mean Corpuscular Volume 88 fL (80-100); Mean Platelet Volume 11.3 fL (9.1-12.4); NEUTROPHILS ABSOLUTE AUTO 6.95 K/mm3 (1.96-9.15); NEUTROPHILS PERCENT AUTO 77 % (41-73); Platelet Count 279 K/mm3 (150-400); RDW Coefficient Variation 14.5 % (11.7-14.2); RDW Standard Deviation 46.5 fL (35.1-46.3); Red Blood Cell Count 2.59 M/mm3 (4.30-5.90); White Blood Cell Count 9.04 K/mm3 (4.00-11.30)
[2020-10-11 05:19] LABS: Anion Gap 10 mmol/L (6-16); Blood Urea Nitrogen 87 mg/dL (8-24); Bun/Creatinine Ratio 24.3 (12.0-20.0); CO2, Blood 28 mmol/L (21-32); Calcium, Blood 8.5 mg/dL (8.5-10.1); Chloride, Blood 95 mmol/L (98-108); Creatinine, Blood 3.58 mg/dL (0.60-1.20); Glomerular Filtration Rate 17 (60-); Glucose, Blood 267 mg/dL (70-99); Magnesium, Blood 2.2 mg/dL (1.6-2.4); Potassium, Blood 3.8 mmol/L (3.5-5.5); Sodium, Blood 133 mmol/L (136-145)
--- NOTE | 2020-10-11 06:25 | NUR ---
SHIFT SUMMARY NO ACUTE CHANGES DURING NOC. REMAINS INTUBATED WITH SAME VENT SETTINGS. MEDICATED WITH FENTANYL 25MCG IV X 1 DOSE FOR VENT COMPLIANCE AND FOR COMFORT. CONTINUES WITH COPIOUS ORAL AND ETT SECRETIONS. PT STILL NOT FOLLOWING COMMANDS. VSS. TMAX 101.5F- TYLENOL 650MG GIVEN PT. VITAL HIGH PROTEIN AT GOAL RATE OF 50CC/HR. RESIDUALS <10. INCONTINENT OF LOOSE STOOL X 1. TEIXEIRA PATENT AND DRAINING. LEVY PICC AND [facility] DIALYSIS CATHETER PATENT. WILL REPORT TO ONCOMING RN WHEN AVAILABLE.
--- NOTE | 2020-10-11 08:00 | NUR ---
ASSUMED CARE BEDSIDE REPORT FROM MARY LIU AT 0700. PT INTUBATED, VENT SETTINGS AC 14/500/5/30%. PT NOT SEDATED. OPENS EYES SPONTANEOUSLY. APPEARS TO MAKE EYE CONTACT. DOES NOT FOLLOW COMMANDS. GRIMACES c CARE. OCCASIONALLY TEARY EYED. CLOSES MOUTH c ORAL SUCTIONING OR ORAL CARE. LUNGS DIMINISHED IN BASES. COPIOUS THIN CLEAR SECRETIONS THROUGH ETT AND ORALLY. COUGH/GAG/SWALLOW REFLEX PRESENT. ABD ROUND, DISTENDED. NON TENDER. HYPOACTIVE BT. TUBE FEEDS AT GOAL, 50 ML/HR c 30 ML FLUSHES q 4HR. RESIDUALS 30 ML THIS AM. TEIXEIRA PATENT, DRAINING CLEAR YELLOW URINE TO GRAVITY. 2+ EDEMA IN UPPER EXTREMITIES. TRIALYSIS CATH TO [facility], DRESSING C/D/I. PORT DOES NOT DRAW, FLUSHES. PICC TO LUE, DRESSING C/D/I. DRESSINGS TO R[facility], BILATERAL GROINS, C/D/I. NYSTANIN TO SKIN FOLDS. VSS. WILL CONTINUE TO MONITOR.
--- NOTE | 2020-10-11 16:53 | NUR ---
SHIFT SUMMARY PT INTUBATED. VENT SETTINGS AC 14/500/5/30%. PROPOFOL GTT STARTED THIS SHIFT FOR VENT COMPLIANCE. LUNGS DIMINISHED IN BASES. CONTINUES TO HAVE COPIOUS, THIN CLEAR SECRETIONS. SPONTANEOUSLY OPENS EYES. DOES NOT FOLLOW COMMANDS. TUBE FEEDS CHANGED TO PIVOT 1.5, AT GOAL OF 35 ML/HR, MINIMAL RESIDUALS. TEIXEIRA PATENT, DRAINING TO GRAVITY. 250 ML CLEAR YELLOW URINE OUT. VSS. FAMILY VISIT TODAY. PER SO, WAITING FOR THIRD ADULT CHILD TO COME VISIT WEDNESDAY AND WILL THEN TRANSITION TO COMFORT CARE. WILL CONTINUE TO MONITOR UNTIL REPORT TO ONCOMING NURSE.
[2020-10-12 05:05] LABS: BASOPHILS ABSOLUTE AUTO 0.03 K/mm3 (0.00-0.23); BASOPHILS PERCENT AUTO 0 % (0-2); EOSINOPHILS ABSOLUTE AUTO 0.31 K/mm3 (0.00-0.68); EOSINOPHILS PERCENT AUTO 3 % (0-6); Hematocrit 21.8 % (37.0-53.0); Hemoglobin 7.2 g/dL (13.5-17.5); IMMATURE GRAN ABSOLUTE AUTO 0.54 K/mm3 (0.00-0.10); IMMATURE GRAN PERCENT AUTO 6 % (0-1); LYMPHOCYTES ABSOLUTE AUTO 1.07 K/mm3 (0.84-5.20); LYMPHOCYTES PERCENT AUTO 12 % (21-46); MONOCYTES ABSOLUTE AUTO 0.67 K/mm3 (0.16-1.47); MONOCYTES PERCENT AUTO 8 % (4-13); Mean Corpuscular HGB 29.4 pg (26.0-34.0); Mean Corpuscular Volume 89 fL (80-100); Mean Platelet Volume 11.3 fL (9.1-12.4); NEUTROPHILS ABSOLUTE AUTO 6.37 K/mm3 (1.96-9.15); NEUTROPHILS PERCENT AUTO 71 % (41-73); Platelet Count 287 K/mm3 (150-400); RDW Coefficient Variation 14.6 % (11.7-14.2); RDW Standard Deviation 47.5 fL (35.1-46.3); Red Blood Cell Count 2.45 M/mm3 (4.30-5.90); White Blood Cell Count 8.99 K/mm3 (4.00-11.30)
[2020-10-12 05:23] LABS: Anion Gap 12 mmol/L (6-16); Blood Urea Nitrogen 116 mg/dL (8-24); Bun/Creatinine Ratio 26.2 (12.0-20.0); CO2, Blood 24 mmol/L (21-32); Calcium, Blood 8.3 mg/dL (8.5-10.1); Chloride, Blood 95 mmol/L (98-108); Creatinine, Blood 4.42 mg/dL (0.60-1.20); Glomerular Filtration Rate 14 (60-); Glucose, Blood 233 mg/dL (70-99); Magnesium, Blood 2.3 mg/dL (1.6-2.4); Sodium, Blood 131 mmol/L (136-145)
--- NOTE | 2020-10-12 06:27 | NUR ---
SHIFT SUMMARY PATIENT SLEPT WELL THROUGH NIGHT. ETT SECRETIONS GREATLY REDUCES COMPARED TO LAST SEVERAL NIGHTS. OTHERWISE NO ACUTE CHANGES. ASSESSMENT IS CHARTED. VSS. WILL CONTINUE TO MONITOR.
--- NOTE | 2020-10-12 07:03 | NUR ---
Received report from Michele LIU. Patient is intubated and lightly sedated. He has 8.0 ET and is 25 cm at teeth with vent setting AC 14, TV 500, FiO2 30%, PEEP 5.0 and sats >90%. He has OG in Place Pivot 1.5 infusing goal rate 35 ml/hr and 30 ml/q4 water flushes. Sun s Trialysis cath to [facility] dressing intact and site WNL's and is flushed and SL'd. PICC line in LEVY dressing intact and site WNL's and is infusing NS TKO, Heparin 24 units/kg/min, Propofol 15 mcg/kg/min. He has 18 Fr temp sanders draining to gravity yellow urine. He withdrawls with oral care and nocious stimuli. He has copius amounts of oral secretions and moderte ET secretions. Bruising to groin area from previous retro bleed that has resolved.
--- NOTE | 2020-10-12 09:54 | NUR ---
Patient is going to have dialysis today. Dr Heard by to see patient. He opens eyes to verbal stimuli. VSS, See EMR. No changes to vent or gtt setting. Dr. Keen has been room to assess. No new orders
--- NOTE | 2020-10-12 11:30 | NUR ---
No significant changes. Frequent oral and ET suctioning. Vent setting AC 14, TV 500, FiO2 30%, PEEP 5 and sats >90%. He had large soft stool, cleaned up and changed linen. Propofol 15 mcg/kg/min, NS TKO. TF reduced to Pivot 25 ml/hr with same water flush.
--- NOTE | 2020-10-12 15:00 | NUR ---
Dialysis was un able to do dialysis and cath-tej in lines and will be back to assess the clogged lines. Family at bedside. VSS, See EMR. No changes with vent or gtt's. Patient continues to have copius oral secretions and moderate ET secretions. Heparin at 23 units/kg/min, Propofol at 15 mcg/kg/min, NS TKO.
--- NOTE | 2020-10-12 15:08 | NUR ---
UNABLE TO ASPIRATE PT'S LEFT IJ; VENOUS SW BETTER THAN ARTERIAL BUT ESSENTIANLLY UNABLE TO PULL. IV ACTIVASE ORDERED AND INSTILLED INTO BOTH LINES PER RUSLAN HERNÁNDEZ RN AT 1457. MARNIE TRUJILLO RN AT BEDSIDE WELL [facility] FAMILY [facility]. WILL LET ACTIVASE WORK FOR 60 -120 MINUTES PER RN'S REQUEST. PT STABLE. MACHINE IN BYPASS MODE. JOHNNY
--- NOTE | 2020-10-12 17:10 | NUR ---
UNABLE TO FLUSH PT'S IJ AFTER ACTIVASE TX. DR LONG NOTIFIED. SEE ORDERS PER MARNIE TRUJILLO RN. PLAN TO LEAVE ACTIVASE OVERNIGHT IN CATHETERS AND RETRY DIALYSIS IN AM. AND FAMILY AT BEDSIDE. PT UNCHANGED IN CONDITION. REMAINS ENTUBATED AND NONRESPONSIVE. JOHNNY
--- NOTE | 2020-10-12 19:18 | NUR ---
Dialysis came back and still line not working and cathflo again. family went home and will be back tomorrow. VSS, See EMR. Vent setting 14/30/5, Propofol 15 mcg/kg/min, Heparin 23 units,kg/min, NS TKO. Patient had small formed stool, and cleaned up with Kanu Garcia. Gave report.
--- NOTE | 2020-10-12 21:19 | NUR ---
ASSUMED PT CARE FROM [facility] AT 1900 PT REMAINS INTUBATED AND ON LIGHT SEDATION. PROPOFOL AT 15MCG/KG/MIN. VENT AC/VC 14, VT 500, PEEP 5, FIO2 30%; SPO2 >90%. RR 14-20. PT OPENS EYES SPONTANEOUSLY, MINIMAL TRACKING, BUT DOES NOT FOLLOW ANY COMMANDS. MINIMAL MOVEMENTS WITH RIGHT ARM, BUT NO PURPOSEFUL MOVEMENT TO OTHER EXTREMITIES. NSR WITH HR 80'S. BP'S STABLE, SEE FLOWSHEET. HEPARIN GTT INFUSING AT 23 UNITS/KG/HR PER PHARMACY CONSULT. PICC LINE TO LEVY. TRIALYSIS CATH TO LEFT IJ; DRESSING IS PEELING OFF; THEREFORE, WILL NEED CHANGED THIS SHIFT. PIVOT 1.5 INFUSING AT GOAL OF 25ML/HR; MINIMAL RESIDUAL. PT HAD A LARGE, SOFT BM THIS SHIFT. BED BATH COMPLETED AND PT REPOSITIONED. PT MEDICATED X1 OF DILAUDID D/T COUGHING AND NOT TOLERATING VENT WITH FREQUENT GRIMACES NOTED. WILL CONTINUE TO MONITOR.
[2020-10-12 23:46] LABS: International Normalized Ratio 1.29; Prothrombin Time Results 13.7 Sec (9.7-11.5)
--- NOTE | 2020-10-13 05:29 | NUR ---
END OF SHIFT SUMMARY NO SIGNIFICANT CHANGES. PT REMAINS ON THE SAME VENT SETTINGS. PROPOFOL TURNED OFF BEGINNING OF SHIFT AND HAS REMAINED OFF WITH PRN DILAUDID PUSHES FOR VENT COMPLIANCE. NEURO STATUS UNCHANGED. CONTINUES TO OPEN EYES SPONTANEOUSLY AND WILL OCCASIONALLY TRACK. DOES NOT FOLLOW COMMANDS. NO PURPOSEFUL MOVEMENTS. ABLE TO MOVE LEFT ARM UP TO NAVEL AREA AND THAT IS IT. CONTINUES TO WITHDRAWAL FROM NOXIOUS STIMULI. WILL PURSE LIPS DURING ORAL CARES AND ORAL SUCTIONING. TEIXEIRA CATHETER REMAINS PATENT AND DRAINING YELLOW URINE WITH SEDIMENT; 625CC NOTED THIS SHIFT. TF REMAINS AT GOAL OF 25MLS/HR; MINIMAL TO NO RESIDUALS. HEPARIN INFUSING AT 21 UNITS/KG/HR VIA PICC TO LEFT UPPER ARM. CHANGED DRESSING TO TRIALYSIS CATH TO LEFT IJ THIS SHIFT. WILL CONTINUE TO MONITOR UNTIL REPORT IS HANDED OFF TO ONCOMING RN.
[2020-10-13 06:16] LABS: BASOPHILS ABSOLUTE AUTO 0.02 K/mm3 (0.00-0.23); BASOPHILS PERCENT AUTO 0 % (0-2); EOSINOPHILS ABSOLUTE AUTO 0.36 K/mm3 (0.00-0.68); EOSINOPHILS PERCENT AUTO 3 % (0-6); Hematocrit 21.9 % (37.0-53.0); Hemoglobin 7.3 g/dL (13.5-17.5); IMMATURE GRAN ABSOLUTE AUTO 0.49 K/mm3 (0.00-0.10); IMMATURE GRAN PERCENT AUTO 5 % (0-1); LYMPHOCYTES ABSOLUTE AUTO 1.25 K/mm3 (0.84-5.20); LYMPHOCYTES PERCENT AUTO 12 % (21-46); MONOCYTES ABSOLUTE AUTO 0.64 K/mm3 (0.16-1.47); MONOCYTES PERCENT AUTO 6 % (4-13); Mean Corpuscular HGB 29.4 pg (26.0-34.0); Mean Corpuscular HGB Conc 33.3 g/dL (31.5-36.5); Mean Corpuscular Volume 88 fL (80-100); Mean Platelet Volume 11.2 fL (9.1-12.4); NEUTROPHILS PERCENT AUTO 74 % (41-73); Platelet Count 334 K/mm3 (150-400); RDW Coefficient Variation 14.6 % (11.7-14.2); RDW Standard Deviation 47.3 fL (35.1-46.3); Red Blood Cell Count 2.48 M/mm3 (4.30-5.90); White Blood Cell Count 10.46 K/mm3 (4.00-11.30)
[2020-10-13 06:31] LABS: Albumin, Blood 2.3 g/dL (3.4-5.0); Anion Gap 13 mmol/L (6-16); Blood Urea Nitrogen 135 mg/dL (8-24); Bun/Creatinine Ratio 27.1 (12.0-20.0); CO2, Blood 23 mmol/L (21-32); Calcium, Blood 8.7 mg/dL (8.5-10.1); Chloride, Blood 95 mmol/L (98-108); Creatinine, Blood 4.99 mg/dL (0.60-1.20); Glomerular Filtration Rate 12 (60-); Glucose, Blood 206 mg/dL (70-99); Magnesium, Blood 2.3 mg/dL (1.6-2.4); Phosphorus, Blood 6.7 mg/dL (2.5-4.9); Potassium, Blood 4.5 mmol/L (3.5-5.5); Sodium, Blood 131 mmol/L (136-145)
--- NOTE | 2020-10-13 08:30 | NUR ---
ASSUMED CARE REPORT FROM MARY LIU AT 0700. PT INTUBATED. VENT SETTINGS AC 14/500/5/30%. LUNGS CLEAR. MODERATE AMOUNT OF THIN WHITE SECRETIONS FROM ETT. COPIOUS ORAL SECRETIONS. ABD DISTENDED, FIRM. HYPOACTIVE BT. TUBE FEEDS AT GOAL, MINIMAL RESIDUALS. TEIXEIRA PATENT, DRAINING CLEAR YELLOW URINE TO GRAVITY. PICC TO HOSSEIN, DRESSING C/D/I. TRIALYSIS CATH TO [facility], DRESSING C/D/I. PLAN FOR DIALYSIS TODAY. EDEMA TO BILATERAL HANDS AND RIGHT FOREARM. SWELLING TO PENIS c ULCERATIONS. SEE SKIN ASSESSMENT. DRESSING FROM PREVIOUS CVC'S C/D/I. VSS. WILL CONTINUE TO MONITOR.
--- NOTE | 2020-10-13 09:40 | NUR ---
TO PTS ROOM IN ICU 7,CATHETERS SLUGGISH WITH ACTIVASE IN THEM. DR LONG WOULD STILL LIKE TO ATTEMPT TREATMENT. ATTEMPTED TO START DIALYSIS, LINES CONNECTED, THEN REVERSED. VENOUS PRESSURE UP TO 450 AT BLOOD FLOW OF 200. UNABLE TO COMPLETE TX. ETHAN NOTIFIED, RN KORY ESPARZA NOTIEFIED. DR CASTRO AT BEDSIDE, STATES HE WOULDN'T WANT TO PLACE ANOTHER CATHETER PTS CONDITION IS DETERIORATING AND WILL PROBABLY HAVE THE SAME OUTCOME. HE HAS HAD TWO CATHETERS IN ONE WEEK. DR LONG NOTIFIED, ACTIVASE INSTILLED IN BOTH CATHETERS PER D.BETTY LIU. WILL ATTEMPT DIALYSIS IN AM AGAIN. JOHNNY
[2020-10-13 13:32] LABS: Vancomycin, Random 24.1 ug/mL
--- NOTE | 2020-10-13 18:09 | NUR ---
SHIFT SUMMARY NO ACUTE CHANGES THIS SHIFT. PHYSICAL ASSESSMENT SAME. REMAINS INTUBATED. UNCHANGED VENT SETTINGS. TUBE FEEDS INCREASED TO 30ML/HR THIS SHIFT. BUMEX DOSE INCREASED. 700 ML YELLOW URINE c SEDIMENT OUT. UNABLE TO COMPLETE DIALYSIS TODAY D/T CATHETER OCLUDING. HEPARIN GTT DECREASED TO 20 UNITS/KG/HR. VSS. WILL CONTINUE TO MONITOR UNTIL REPORT TO ONCOMING NURSE.
--- NOTE | 2020-10-13 19:04 | NUR ---
ASSUMED PT CARE FROM [facility] PT REMAINS INTUBATED AC/VC 14, VT 500, PEEP 5, FIO2 30%. SPO2 >90%. RR 14. PT REMAINS OFF SEDATION WITH PRN DILAUDID PUSHES NEEDED. PIVOT 1.5 AT GOAL OF 30CC/HR. HEPARIN GTT INFUSING VIA PICC LINE TO LEVY AT 20 U/KG/HR. TEIXEIRA CATH REMAINS PATENT AND DRAINING TO GRAVITY. WILL CONTINUE TO MONITOR.
--- NOTE | 2020-10-14 05:49 | NUR ---
END OF SHIFT SUMMARY NO SIGNIFICANT CHANGES T/O SHIFT. PT NOTED TO HAVE HIGH RESIDUALS OF 450CC AROUND 2330. REINSTILLED 200CC AND DISCARDED THE REST. HELD TF X1 HOUR AND THEN RESTARTED AT HALF THE RATE. NEXT RESIDUAL WAS 100CC; INCREASED TF TO 25ML/HR WITH GOAL OF 30CC/HR. PT CONTINUES TO OPEN EYES SPONTANEOUSLY. NOT FOLLOWING COMMANDS; HOWEVER, WILL TRACK AT TIMES. PURSES LIPS WITH ORAL CARES AND ATTEMPTS TO PREVENT YONKAUER FROM ENTERING MOUTH. NOTED TO BE TEARFUL AT TIMES. PT ABLE TO MOVE LEFT ARM; VERY WEAK AND SLOW, BUT PURPOSEFUL TOWARD TUBE. DOES NOT MOVE ANY OTHER EXTREMITIES. SPOKE WITH ON THE PHONE AND GAVE AN UPDATE ON SITUATION. STATES THAT DAUGHTER WHOM IS TRAVELING FROM [place] MIGHT NOT COME DOWN SHE ISN'T FEELING WELL. HOWEVER, THE PLAN TO PROCEED TO COMFORT CARE ON WEDNESDAY IS STILL THE PLAN OF CARE. WILL CONTINUE TO MONITOR UNTIL REPORT IS HANDED OFF TO ONCOMING RN.
[2020-10-14 06:20] LABS: BASOPHILS ABSOLUTE AUTO 0.02 K/mm3 (0.00-0.23); BASOPHILS PERCENT AUTO 0 % (0-2); EOSINOPHILS ABSOLUTE AUTO 0.22 K/mm3 (0.00-0.68); EOSINOPHILS PERCENT AUTO 2 % (0-6); IMMATURE GRAN ABSOLUTE AUTO 0.47 K/mm3 (0.00-0.10); IMMATURE GRAN PERCENT AUTO 4 % (0-1); LYMPHOCYTES ABSOLUTE AUTO 1.07 K/mm3 (0.84-5.20); LYMPHOCYTES PERCENT AUTO 9 % (21-46); MONOCYTES ABSOLUTE AUTO 0.63 K/mm3 (0.16-1.47); MONOCYTES PERCENT AUTO 5 % (4-13); Mean Corpuscular HGB 29.5 pg (26.0-34.0); Mean Corpuscular HGB Conc 33.3 g/dL (31.5-36.5); Mean Corpuscular Volume 89 fL (80-100); Mean Platelet Volume 11.3 fL (9.1-12.4); NEUTROPHILS ABSOLUTE AUTO 9.22 K/mm3 (1.96-9.15); NEUTROPHILS PERCENT AUTO 79 % (41-73); Platelet Count 368 K/mm3 (150-400); RDW Coefficient Variation 14.7 % (11.7-14.2); RDW Standard Deviation 46.7 fL (35.1-46.3); Red Blood Cell Count 2.37 M/mm3 (4.30-5.90); White Blood Cell Count 11.63 K/mm3 (4.00-11.30)
[2020-10-14 06:45] LABS: Albumin, Blood 2.4 g/dL (3.4-5.0); Anion Gap 12 mmol/L (6-16); Blood Urea Nitrogen 147 mg/dL (8-24); Bun/Creatinine Ratio 26.4 (12.0-20.0); CO2, Blood 23 mmol/L (21-32); Calcium, Blood 8.8 mg/dL (8.5-10.1); Chloride, Blood 95 mmol/L (98-108); Creatinine, Blood 5.57 mg/dL (0.60-1.20); Glomerular Filtration Rate 10 (60-); Glucose, Blood 143 mg/dL (70-99); Magnesium, Blood 2.3 mg/dL (1.6-2.4); Potassium, Blood 4.7 mmol/L (3.5-5.5); Sodium, Blood 130 mmol/L (136-145)
--- NOTE | 2020-10-14 08:26 | NUR ---
CARE OF PT ASSUMED AT 0700. PT ON [facility] VENT, PROPOFOL HAS BEEN OFF. PT OPENS EYES SPONTANIOUSLY, OPENS EYES TO VOICE AT TIMES, TRACKS W EYES AT TIMES. DOES NOT FOLLOW ANY COMMANDS. PT FURROWS BROWS AND GRIMACES OFTEN, PT APPEARS UNCOMFORTABLE. PT PEAK PRESSURES IN HIGH 40'S OFTEN W COPIOUS AMTS OF THICK YELLOW SPUTUM FROM ETT. PT RESISTS ORAL CARE. PT MOVES LEFT ARM, MOVES ARM UP ON CHEST. PT IS MAKING URINE, CLEAR YELLOW. BT'S HYPOACTIVE, MINIMAL RESIDUAL THIS AM. DILAUDID GIVEN FOR DISCOMFORT. DR MCFADDEN IN THIS AM AND GIVEN FULL REPORT. PROPOFOL TO BE RESTARTED FOR COMFORT AND FOR VENT COMPLIANCE.
--- NOTE | 2020-10-14 12:47 | NUR ---
LEFT IJ CVC ASSESSMENT: FOLLOWING GREATER THAN 12 HOUR ACTIVASE DWELL, ATTEMPT WAS MADE TO ASPIRATE THE ACTIVASE AND PERFORM HD. UNFORTUNATELY, THE ARTERIAL PORT WAS SOLID, WITH NO RETURN IN SPITE OF MAXIMUM EFFORT. ASPIRATION OF VENOUS PORT WAS ONLY PARTIAL, AGAIN, ONLY WITH MAXIMUM EFFORT. THE CVC PRESENTED TODAY IS NOT FUNCTIONAL AND NOT USEABLE FOR HD. COVERING ICU NURSE AND DR LONG WERE INFORMED OF THESE FINDINGS.
--- NOTE | 2020-10-14 12:47 | NUR ---
PROPOFOL WAS STARTED AT 25MCG, PT APPEAR COMFORTABLE AND IS TOLERATING THE VENT BETTER. OLIVIA Casanova HD IN TO CHECK ON LEFT IJ TRIALYSIS CATH, CATHETER IS CLOTTED. DR MCFADDEN INFORMED, HD CATH TO BE REMOVED.
--- NOTE | 2020-10-14 15:33 | NUR ---
PT'S AND TWO CHILDREN AT BEDSIDE; GIVEN FULL UPDATE. FAMILY STATES THEY WILL BE READY TO PLACE PT ON COMFORT CARE TOMORROW; PROCESS REVIEWED W FAMILY. DR MCFADDEN AT BEDSIDE NOW. HEPARIN TO CONTINUE AT SAME RATE PER PHARMACY. PER DR MCFADDEN, KEEP HEPARIN AT SAME RATE, DO NOT DRAW FURTHER PTT LABS.
--- NOTE | 2020-10-14 15:36 | NUR ---
LEFT IJ HD CATH DC'D FOLLOWING HOSPITAL POLICY AND PROCEDURE AT 1330.
--- NOTE | 2020-10-14 20:00 | NUR ---
ASSUMED CARE OF PATIENT AT 1900. HE IS ON THE VENTILATOR 14/500/5/30%. HE OPENS HIS EYES TO ORAL CARE, PICC LINE IN LEVY, BP 80-90'S SYSTOLIC, ABDOMEN SOFT ROUND, GROIN SITES OOZY, RIGHT SIGHT OPEN WOUND, LEFT JUST SEEPING, ANKLES/FEET EDEMATOUS. RIGHT ARM WITH HUGE BRUISING AND SWELLING IN THE ELBOW UPPER ARM AREA. PUPILS EQUAL AND REACTIVE, DOESN'T FOLLOW COMMANDS DOESN'T MOVE ANY EXTREMITIES PURPOSEFULLY. TEIXEIRA TO GRAVITY DRAINAGE, CLEAR YELLOW RETURN. TUBE FEEDING AT 30ML/HR, RESIDUAL 670, HELD FOR 30 MINUTES.
--- NOTE | 2020-10-14 21:10 | NUR ---
PT'S BP LABILE, PROPOFOL TURNED DOWN TO 20MCG/KG/MIN.
--- NOTE | 2020-10-15 02:11 | NUR ---
PT SEEMS TO BE UNSETTLED, VENT ALARMING, BROUGHT BACK UP TO 20MCG/KG/MIN ON THE PROPOFOL.
--- NOTE | 2020-10-15 06:19 | NUR ---
NETTIE WAS ALERT THIS SHIFT, EYES OPENING TO VOICE AND GRIMACE TO ORAL CARE. HE DID NOT FOLLOW COMMANDS OR HAVE ANY PURPOSEFUL MOVEMENT. HE CONTINUES ON PROPOFOL @ 20 MCG/KG/MIN, HEPARIN @ 20U/KG/HR, ATTEMPT TO WEAN DOWN PROPOFOL R/T BLOOD PRESSURE BUT PT SEEMED TO FIGHT THE VENTILATOR MORE, SO BACK TO 20. LEFT ARM DID MOVE WITHOUT COMMAND, EYES DID NOT TRACK THIS NURSE. NO BM THIS SHIFT, URINE OUTPUT 200ML. PHONED IN AROUND 0500 FOR AN UPDATE.
--- NOTE | 2020-10-15 06:28 | NUR ---
NOTE: TUBE FEEDING HAS BEEN OFF SINCE 399. MY FIRST RESIDUAL RESULTED IN OVER 600 CC AND MY SECOND WAS OVER 200 CC. I CHOSE TO LEAVE THE FEEDING OFF FOR NOW.
--- NOTE | 2020-10-15 07:15 | NUR ---
Received report from Isabela Garcia. Patient is intubated and sedated lightly. He has 8.0 ET and is 26 cm at teeth with vent settings of AC 14, TV 500, PEEP 5, FiO2 30% and sats >90%. He opens eye to verbal stimuli and withdrawls from nocious stimuli,He has PICC line to LEVY dressing intact and site WNL's and is infusing Propofol at 20 mcg/kg/min, NS TKO, Heparin at 20 units/kg/min. He has 18Fr Temp sanders draining to gravity yellow urine and is afebrile at 98.1. He has op site to [facility] from trialysis cath removal, site C/D/I and WNL's and bilateral groin sites with algenate where puncture sites did not close. He moves LUE to nipple line but no higher. Pivot 1.5 on standby for x2 high residuals>200-<700. Plan is for family to come by and extubate and make comfort measures.
--- NOTE | 2020-10-15 10:21 | NUR ---
Propofol placed on standby at 0930 and no changes with patient. Dr Kim in room, no new orders. No changes to vent
--- NOTE | 2020-10-15 11:45 | NUR ---
Patient extubated and placed on 10L O2 with family at bedside. OG suctioned for copius oral secretions. VSS, See EMR
--- NOTE | 2020-10-15 13:39 | NUR ---
Patient O2 decreased to 2 L O2 and remains at 87% and HR 103. Family remains at bedside. Medicated after extubation Morphine and ativan for air starvation. All gtt discontinued.
--- NOTE | 2020-10-15 16:22 | NUR ---
Spiritual care visit conducted. Minutes after extubation I joined family in patient's rm. I conducted a life review and provide prayer and anticipatory grief support. Family respond well and show signs of being comforted. Spiritual care will remain available .
--- NOTE | 2020-10-15 17:00 | NUR ---
Patient passes at 1645, family at bedside, [facility]. Final discharge done by CN and awaiting pick-up
== END 2020-10-15 16:45 | DRG 270 ==
LOC: ER 23:04 → ICUE 09-25 00:15 → ICUW 09-25 00:15 → ICUE 09-25 02:40
PROVIDERS: Emergency Medicine; Family Medicine; Internal Medicine; Internal Medicine Cardiovascular Disease; Internal Medicine Critical Care Medicine; Internal Medicine Nephrology; Internal Medicine Pulmonary Disease; Pharmacist; ADMIT Internal Medicine Cardiovascular Disease
PROC: 5A12012 Performance of Cardiac Output, Single, Manual (ICD-10-PCS; principal; 2020-09-25)
PROC: 5A02210 Assistance with Cardiac Output using Balloon Pump, Continuous (ICD-10-PCS; 2020-09-25)
PROC: 027237Z Dilation of Coronary Artery, Three Arteries with Four or More Drug-eluting Intraluminal Devices, Percutaneous Approach (ICD-10-PCS; 2020-09-25)
PROC: 30233N1 Transfusion of Nonautologous Red Blood Cells into Peripheral Vein, Percutaneous Approach (ICD-10-PCS; 2020-09-25)
PROC: B2111ZZ Fluoroscopy of Multiple Coronary Arteries using Low Osmolar Contrast (ICD-10-PCS; 2020-09-25)
PROC: B2181ZZ Fluoroscopy of Left Internal Mammary Bypass Graft using Low Osmolar Contrast (ICD-10-PCS; 2020-09-25)
PROC: B2131ZZ Fluoroscopy of Multiple Coronary Artery Bypass Grafts using Low Osmolar Contrast (ICD-10-PCS; 2020-09-25)
PROC: 5A1223Z Performance of Cardiac Pacing, Continuous (ICD-10-PCS; 2020-09-25)
PROC: 02HK3JZ Insertion of Pacemaker Lead into Right Ventricle, Percutaneous Approach (ICD-10-PCS; 2020-09-25)
PROC: 0BH18EZ Insertion of Endotracheal Airway into Trachea, Via Natural or Artificial Opening Endoscopic (ICD-10-PCS; 2020-09-25)
PROC: 3E033XZ Introduction of Vasopressor into Peripheral Vein, Percutaneous Approach (ICD-10-PCS; 2020-09-25)
PROC: 02HV33Z Insertion of Infusion Device into Superior Vena Cava, Percutaneous Approach (ICD-10-PCS; 2020-09-25)
PROC: 5A1955Z Respiratory Ventilation, Greater than 96 Consecutive Hours (ICD-10-PCS; 2020-09-25)
PROC: 05HM33Z Insertion of Infusion Device into Right Internal Jugular Vein, Percutaneous Approach (ICD-10-PCS; 2020-09-29)
PROC: 05HN33Z Insertion of Infusion Device into Left Internal Jugular Vein, Percutaneous Approach (ICD-10-PCS; 2020-10-08)
DX: I21.4 Non-ST elevation (NSTEMI) myocardial infarction (principal); J96.01 Acute respiratory failure with hypoxia; I50.23 Acute on chronic systolic (congestive) heart failure; J15.212 Pneumonia due to Methicillin resistant Staphylococcus aureus; N17.9 Acute kidney failure, unspecified; I47.2 Ventricular tachycardia; G93.1 Anoxic brain damage, not elsewhere classified; E87.1 Hypo-osmolality and hyponatremia; J91.8 Pleural effusion in other conditions classified elsewhere; J98.11 Atelectasis; K91.840 Postprocedural hemorrhage of a digestive system organ or structure following a digestive system procedure; D62 Acute posthemorrhagic anemia; Z66 Do not resuscitate; Z51.5 Encounter for palliative care; E87.6 Hypokalemia; R58 Hemorrhage, not elsewhere classified; I46.2 Cardiac arrest due to underlying cardiac condition; I95.81 Postprocedural hypotension; E87.5 Hyperkalemia; R57.0 Cardiogenic shock; D63.1 Anemia in chronic kidney disease; M19.90 Unspecified osteoarthritis, unspecified site; I25.5 Ischemic cardiomyopathy; E11.22 Type 2 diabetes mellitus with diabetic chronic kidney disease; N18.30 Chronic kidney disease, stage 3 unspecified; I25.10 Atherosclerotic heart disease of native coronary artery without angina pectoris; I25.2 Old myocardial infarction; Z95.1 Presence of aortocoronary bypass graft; Z98.49 Cataract extraction status, unspecified eye; Z98.890 Other specified postprocedural states; Z90.89 Acquired absence of other organs; Z79.4 Long term (current) use of insulin; Z79.01 Long term (current) use of anticoagulants; Z79.899 Other long term (current) drug therapy
CPT/HCPCS: 31500; 33967; 36415; 36430; 36556; 36569; 36593; 36600; 51702; 51703; 70450; 71045; 74174; 74176; 75630; 76937; 80048; 80053; 80069; 80074; 80202; 81001; 82248; 82330; 82435; 82803; 82947; 83605; 83615; 83721; 83735; 84100; 84132; 84145; 84295; 84484; 85014; 85018; 85025; 85347; 85610; 85730; 86317; 86850; 86900; 86901; 86923; 87070; 87077; 87147; 87186; 87205; 93005; 93010; 93308; 93454; 93970; 94002; 94003; 94640; 94644; 94660; 96374; 96375; 99152; 99153; 99285-25; A9270; C1725; C1751; C1752; C1760; C1769; C1874; C1887; C1894; C8929; C9113; C9600; C9606; J0282; J0461; J0610; J0690; J0881; J1170; J1265; J1644; J1815; J1940; J2060; J2250; J2270; J2370; J2405; J2543; J2704; J2997; J3010; J3370; J3430; J3475; J3480; J7030; J7040; J7050; J7060; P9016; P9035; P9041; P9046; Q9957; Q9967